=== PATIENT | male | born 1940 | race Caucasian/White ===

== ENCOUNTER 2023-06-24 14:57 | Inpatient (IN) | payer OTHER ==
[2023-06-24] MEDS ORDERED: FUROSEMIDE 40 MG/4 ML VIAL ONE (15:24)
--- OUTSIDE RECORDS SUMMARY | 2023-06-24 15:35 | XMS REPORT | Continuity of Care Document ---
:1940 Author Organization [facility] t Address [address] [place] [address] Care Team Providers Name Role Phone LEAH FRY Attending Clinician Unavailable Ced Galicia Attending Clinician Unavailable DIOR BUSCH Attending Clinician Unavailable James Attending Clinician Unavailable DIOR VALENTE Attending Clinician Unavailable Christina Attending Clinician Unavailable MARYCHUY HUTCHINS Attending Clinician Unavailable Gil Attending Clinician Unavailable IHDE_G Attending Clinician Unavailable Shield Attending Clinician Unavailable James Admitting Clinician Unavailable Christina Admitting Clinician Unavailable Gil Admitting Clinician Unavailable IHDE_G Admitting Clinician Unavailable Shield Admitting Clinician Unavailable Payers Payer Name Policy Type Policy Number Effective Date Expiration Date Sydney reza [facility] [id number] 2021 (MEDICARE 00:00:00 REPLACEMENT/ADVANTA GE - PPO) [employer] (MEDICARE [id number] REPLACEMENT/ADVANTA GE - PPO) Problems Condition Condition Condition Status Onset Resolution Last Treating Co mments Source Name Details Category Date Date Treatment Clinician Date Fever Fever Problem Active [facility] 7-31 da 00:00: Medical 00 Group COVID-19 Covid-19 Problem Active [facility] 7-27 da 00:00: Medical 00 Group Pain in Pain in Problem Active [facility] limb Limb 2-20 da 00:00: Medical 00 Group Fatigue Fatigue Problem Active [facility] 2-20 da 00:00: Medical 00 Group Dyspnea on Dyspnea on Problem Active [facility] exertion Exertion 2-20 da 00:00: Medical 00 Group 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 00 Grou p Retinopath Retinopath Problem Active [facility] y due to y Due to 2-18 da diabetes Diabetes 00:00: Medica l mellitus Mellitus 00 Group Disorder Disorder Problem Active [facility] of of 2-18 da refraction Refraction 00:00: Me dical AND/OR AND/OR 00 Group accommodat Accommodat ion ion Hypothyroi Hypothyroi Problem Active [facility] dism dism 1-25 da 00:00: Medical 00 Group Iron Iron Problem Active [facility] deficiency Deficiency 1-25 da anemia Anemia 00:00: Medical 00 Group Benign Benign Problem Active [facility] hypertensi Hypertensi 7-19 da on on 00:00: Medical 00 Group Stented Stented Problem Active [facility] coronary Coronary 08-21 da artery Artery 00:00: Medical 00 Group 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 Medical zoster Zoster Group Diabetes Diabetes Problem Active [facility] mellitus Mellitus [facility] Group Type 2 Type 2 Problem Active [facility] diabetes Diabetes da mellitus Mellitus Medica l Group 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 Me dical due to Due to Group type 2 Type 2 diabetes Diabetes mellitus Mellitus Hyperchole Hyperchole Problem Active [facility] sterolemia sterolemia [facility] Group Mixed Mixed Problem Active [facility] hyperlipid Hyperlipid da emia emia Medical Group Hyperkalem Hyperkalem Problem Active [facility] ia ia [facility] Medical Group Obesity Obesity Problem Active [facility] Body mass Body Mass Problem Active [facility] index Index da - - Medical overweight Overweight Gr oup Anemia Anemia Problem Active [facility] Anxiety Anxiety Problem Active [facility] Age Age Problem Active [facility] related Related da macular Macular Medical degenerati Degenerati Gr oup on on Benign Benign Problem Active [facility] essential Essential da hypertensi Hypertensi Me dical on on Group Hypertensi Hypertensi Problem Active [facility] ve ve da disorder Disorder Medica l Group Cardiorena Cardiorena Problem Active [facility] l syndrome l Syndrome [facility] Myocardial Myocardial Problem Active [facility] infarction Infarction [facility] Group Coronary Coronary Problem Active [facility] atheroscle Atheroscle da rosis rosis Medical Group Coronary Coronary Problem Active [facility] arterioscl Arterioscl da erosis erosis Medical Group Aortic Aortic Problem Active [facility] valve Valve da stenosis Stenosis Medica l Group Atrial Atrial Problem Active [facility] fibrillati Fibrillati da on on Medical Group Bradycardi Bradycardi Problem Active [facility] a a [facility] Group Multiple Multiple Problem Active [facility] nodules of Nodules of da lung [facility] Chronic Chronic Problem Active [facility] kidney Kidney da disease Disease Medical stage 3 Stage 3 Group Chronic Chronic Problem Active [facility] kidney Kidney da disease Disease Medical Group 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 Knee Medical Group Knee pain Knee Pain Problem Active [facility] Edema of Edema of Problem Active [facility] lower Lower da extremity Extremity Medi charles Group Heart Heart Problem Active [facility] murmur Murmur da Medical Group Chest pain Chest Pain Problem Active [facility] Atypical Atypical Problem Active [facility] chest pain Chest Pain da Medical Group Lung mass Lung Mass Problem Active [facility] Proteinuri Proteinuri Problem Active [facility] a a [facility] Group Solitary Solitary Problem Active [facility] nodule of Nodule of da lung [facility] History of History of Problem Active [facility] tissue Tissue da graft Graft Medical aortic Aortic Group valve Valve replacemen Replacemen t t History of History of Problem Active [facility] aortic Aortic da valve Valve Medical replacemen Replacemen Gr oup t t Screening Screening Problem Active [facility] status Status da Medical Group Drug Drug Problem Active [facility] therapy Therapy da status Status Medical Group Coronary Coronary Problem Active [facility] artery Artery da bypass Bypass Medical grafts x 3 Grafts X 3 Gr oup Drug Drug Problem Active [facility] therapy Therapy da finding Finding [facility] Group Eyelid Eyelid Problem Active [facility] finding Finding [facility] Medical Group Overweight Overweight Problem Active [facility] in in da adulthood Adulthood [facility] with body with Body Grou p mass index Mass Index of 25 or of 25 or more but More but less than Less than 30 30 Chronic Chronic Problem Active [facility] kidney Kidney da disease Disease Medical stage 3 Stage 3 Group due to Due to type 2 Type 2 diabetes Diabetes mellitus Mellitus Tightness Tightness Problem Active [facility] sensation Sensation da quality [facility] Allergies, Adverse Reactions, Alerts Allergy Allergy Status Severity Reaction(s) Onset Inactive Treating Comm ents Source Name Type Date Date Clinician acetamin DA Active [facility] RASH 2020-0 [facility] ophen 3-11 Clear 00:00: Gonzalez [facility] phenylpr DA Active MO RASH 0 [facility] opanolam 3-11 Clear ine 00:00: Gonzalez [facility] acetamin DA Active MO 0 [facility] ophen 3-11 Clear 00:00: Gonzalez [facility] phenylpr DA Active MO 0 [facility] opanolam 3-11 Clear ine 00:00: Gonzalez [facility] acetamin DA Active MO 0 [facility] ophen 3-08 Clear 00:00: Gonzalez [facility] phenylpr DA Active MO 0 [facility] opanolam 3-08 Clear ine 00:00: Gonzalez [facility] acetamin DA Active MO RASH 2020-0 [facility] ophen 3-08 Clear 00:00: Gonzalez 00 [facility] phenylpr DA Active MO RASH 0 [facility] opanolam 3-08 Clear ine 00:00: Gonzalez 00 [facility] ADHESIVE Allergy Active Moderate Rash [facility] TAPE to da [facility] Medical e Group TETRACYC Allergy Active Moderate Rash [facility] LINES to da [facility] Medical e Group Social History Smoking Status Start Date Stop Date Source Never Smoker [facility] Medications Ordered Filled Start Stop Current Ordering Indication Dosage Frequency Signature Comments Components Source Medication Medication Date Date Medication? Clinician (SIG) Name Name albuterol albuterol No albuterol [facility] sulfate 2.5 sulfate 2.5 sulfate da mg/3 mL mg/3 mL 2.5 mg/3 Medic al (0.083 %) (0.083 %) mL (0.083 Group solution solution %) for for solution nebulizatio nebulizatio for n Inhale 3 n Inhale 3 nebulizati mL every mL every on Inhale day by day by 3 mL every nebulizatio nebulizatio day by n route. n route. nebulizati on route. albuterol albuterol No albuterol [facility] sulfate HFA sulfate HFA sulfate da 90 90 HFA 90 Medical mcg/actuati mcg/actuati mcg/actuat Group on aerosol on aerosol ion inhaler inhaler aerosol INHALE 2 INHALE 2 inhaler PUFFS EVERY PUFFS EVERY INHALE 2 4-6 HOURS 4-6 HOURS PUFFS BY BY EVERY 4-6 INHALATION INHALATION HOURS BY ROUTE ROUTE INHALATION NEEDED. NEEDED. ROUTE NEEDED. amlodipine amlodipine No amlodipine [facility] 5 mg tablet 5 mg tablet 5 mg d a TAKE ONE TAKE ONE tablet Medic al (1) (1) TAKE ONE Group TABLET(S) TABLET(S) (1) BY MOUTH BY MOUTH TABLET(S) DAILY. DAILY. BY MOUTH DAILY. aspirin 81 aspirin 81 No 1 Q1D aspirin 81 [facility] mg chewable mg chewable mg d a tablet Chew tablet Chew chewable Medical 1 tablet 1 tablet tablet Group every day every day Chew 1 by oral by oral tablet route. route. every day by oral route. atorvastati atorvastati No atorvastat [facility] n 80 mg n 80 mg in 80 mg da tablet TAKE tablet TAKE tablet Medical ONE TABLET ONE TABLET TAKE ONE Group BY MOUTH BY MOUTH TABLET BY BEDTIME BEDTIME MOUTH BEDTIME clopidogrel clopidogrel No clopidogre [facility] 75 mg 75 mg l 75 mg da tablet TAKE tablet TAKE tablet Medical ONE (1) ONE (1) TAKE ONE Group TABLET(S) TABLET(S) (1) BY MOUTH BY MOUTH TABLET(S) DAILY. DAILY. BY MOUTH DAILY. colesevelam colesevelam No colesevela [facility] 625 mg 625 mg m 625 mg da tablet TAKE tablet TAKE tablet Medical 2 TABLETS 2 TABLETS TAKE 2 Zandra up BY MOUTH BY MOUTH TABLETS BY TWICE DAILY TWICE DAILY MOUTH TWICE DAILY Eylea Eylea No Eylea [facility] ferrous ferrous No ferrous [facility] sulfate sulfate sulfate da Medical Group furosemide furosemide No furosemide [facility] 20 mg 20 mg 20 mg da tablet TAKE tablet TAKE tablet Medical ONE (1) ONE (1) TAKE ONE Group TABLET(S) TABLET(S) (1) BY MOUTH BY MOUTH TABLET(S) DAILY. DAILY. BY MOUTH DAILY. glimepiride glimepiride No glimepirid [facility] 1 mg tablet 1 mg tablet e 1 mg da Take 1 Take 1 tablet Medical tablet tablet Take 1 Group every day every day tablet by oral by oral every day route as route as by oral directed. directed. route as directed. Lagevrio Lagevrio No Lagevrio [facility] 200 mg 200 mg 200 mg da capsule capsule capsule Medica l (EUA) TAKE (EUA) TAKE (EUA) TAKE Group 4 CAPSULES 4 CAPSULES 4 CAPSULES EVERY 12 EVERY 12 EVERY 12 HOURS BY HOURS BY HOURS BY ORAL ROUTE ORAL ROUTE ORAL ROUTE FOR 5 DAYS. FOR 5 DAYS. FOR 5 DAYS. levothyroxi levothyroxi No levothyrox [facility] ne 112 mcg ne 112 mcg ine 112 da tablet TAKE tablet TAKE mcg tablet Medical 1 TABLET BY 1 TABLET BY TAKE 1 Group MOUTH EVERY MOUTH EVERY TABLET BY DAY DAY MOUTH EVERY DAY prednisone prednisone No prednisone [facility] 10 mg 10 mg 10 mg da tablet Take tablet Take tablet Medical 1 tablet 1 tablet Take 1 Group every day every day tablet by oral by oral every day route for 5 route for 5 by oral days. days. route for 5 days. Se-Bloom Plus Se-Bloom Plus No Se-Bloom [facility] 162 162 Plus 162 da mg-115.2 mg mg-115.2 mg mg-115.2 Medical (106 mg)-1 (106 mg)-1 mg (106 Group mg capsule mg capsule mg)-1 mg TAKE 1 TAKE 1 capsule CAPSULE BY CAPSULE BY TAKE 1 MOUTH EVERY MOUTH EVERY CAPSULE BY DAY DAY MOUTH EVERY DAY Symbicort Symbicort No Symbicort [facility] 160 mcg-4.5 160 mcg-4.5 160 d a mcg/actuati mcg/actuati mcg-4.5 Medical on HFA on HFA mcg/actuat Group aerosol aerosol ion HFA inhaler inhaler aerosol INHALE 2 INHALE 2 inhaler PUFFS TWICE PUFFS TWICE INHALE 2 A DAY BY A DAY BY PUFFS INHALATION INHALATION TWICE A ROUTE FOR ROUTE FOR DAY BY 30 DAYS. 30 DAYS. INHALATION ROUTE FOR 30 DAYS. tramadol 50 tramadol 50 No tramadol [facility] mg tablet mg tablet 50 mg da TAKE ONE TAKE ONE tablet Medic al (1) (1) TAKE ONE Group TABLET(S) TABLET(S) (1) BY MOUTH BY MOUTH TABLET(S) TWICE A DAY TWICE A DAY BY MOUTH NEEDED. NEEDED. TWICE A DAY NEEDED. albuterol albuterol No albuterol [facility] sulfate 2.5 sulfate 2.5 sulfate da mg/3 mL mg/3 mL 2.5 mg/3 Medic al (0.083 %) (0.083 %) mL (0.083 Group solution solution %) for for solution nebulizatio nebulizatio for n Inhale 3 n Inhale 3 nebulizati mL every mL every on Inhale day by day by 3 mL every nebulizatio nebulizatio day by n route. n route. nebulizati on route. albuterol albuterol No albuterol [facility] sulfate HFA sulfate HFA sulfate da 90 90 HFA 90 Medical mcg/actuati mcg/actuati mcg/actuat Group on aerosol on aerosol ion inhaler inhaler aerosol INHALE 2 INHALE 2 inhaler PUFFS EVERY PUFFS EVERY INHALE 2 4-6 HOURS 4-6 HOURS PUFFS BY BY EVERY 4-6 INHALATION INHALATION HOURS BY ROUTE ROUTE INHALATION NEEDED. NEEDED. ROUTE NEEDED. amlodipine amlodipine No amlodipine [facility] 5 mg tablet 5 mg tablet 5 mg d a TAKE ONE TAKE ONE tablet Medic al (1) (1) TAKE ONE Group TABLET(S) TABLET(S) (1) BY MOUTH BY MOUTH TABLET(S) DAILY. DAILY. BY MOUTH DAILY. aspirin 81 aspirin 81 No 1 Q1D aspirin 81 [facility] mg chewable mg chewable mg d a tablet Chew tablet Chew chewable Medical 1 tablet 1 tablet tablet Group every day every day Chew 1 by oral by oral tablet route. route. every day by oral route. atorvastati atorvastati No atorvastat [facility] n 80 mg n 80 mg in 80 mg da tablet TAKE tablet TAKE tablet Medical ONE TABLET ONE TABLET TAKE ONE Group BY MOUTH BY MOUTH TABLET BY BEDTIME BEDTIME MOUTH BEDTIME clopidogrel clopidogrel No clopidogre [facility] 75 mg 75 mg l 75 mg da tablet TAKE tablet TAKE tablet Medical ONE (1) ONE (1) TAKE ONE Group TABLET(S) TABLET(S) (1) BY MOUTH BY MOUTH TABLET(S) DAILY. DAILY. BY MOUTH DAILY. colesevelam colesevelam No colesevela [facility] 625 mg 625 mg m 625 mg da tablet TAKE tablet TAKE tablet Medical TWO (2) TWO (2) TAKE TWO Group TABLETS BY TABLETS BY (2) MOUTH TWICE MOUTH TWICE TABLETS BY DAILY. DAILY. MOUTH TWICE DAILY. Eylea Eylea No Eylea [facility] ferrous ferrous No ferrous [facility] sulfate sulfate sulfate da Medical Group furosemide furosemide No furosemide [facility] 20 mg 20 mg 20 mg da tablet TAKE tablet TAKE tablet Medical ONE (1) ONE (1) TAKE ONE Group TABLET(S) TABLET(S) (1) BY MOUTH BY MOUTH TABLET(S) DAILY. DAILY. BY MOUTH DAILY. glimepiride glimepiride No glimepirid [facility] 1 mg tablet 1 mg tablet e 1 mg da Take 1 Take 1 tablet Medical tablet tablet Take 1 Group every day every day tablet by oral by oral every day route as route as by oral directed. directed. route as directed. Lagevrio Lagevrio No Lagevrio [facility] 200 mg 200 mg 200 mg da capsule capsule capsule Medica l (EUA) TAKE (EUA) TAKE (EUA) TAKE Group 4 CAPSULES 4 CAPSULES 4 CAPSULES EVERY 12 EVERY 12 EVERY 12 HOURS BY HOURS BY HOURS BY ORAL ROUTE ORAL ROUTE ORAL ROUTE FOR 5 DAYS. FOR 5 DAYS. FOR 5 DAYS. levothyroxi levothyroxi No levothyrox [facility] ne 112 mcg ne 112 mcg ine 112 da tablet TAKE tablet TAKE mcg tablet Medical 1 TABLET BY 1 TABLET BY TAKE 1 Group MOUTH EVERY MOUTH EVERY TABLET BY DAY DAY MOUTH EVERY DAY Se-Bloom Plus Se-Bloom Plus No Se-Bloom [facility] 162 162 Plus 162 da mg-115.2 mg mg-115.2 mg mg-115.2 Medical (106 mg)-1 (106 mg)-1 mg (106 Group mg capsule mg capsule mg)-1 mg TAKE 1 TAKE 1 capsule CAPSULE BY CAPSULE BY TAKE 1 MOUTH EVERY MOUTH EVERY CAPSULE BY DAY DAY MOUTH EVERY DAY Symbicort Symbicort No Symbicort [facility] 160 mcg-4.5 160 mcg-4.5 160 d a mcg/actuati mcg/actuati mcg-4.5 Medical on HFA on HFA mcg/actuat Group aerosol aerosol ion HFA inhaler inhaler aerosol INHALE 2 INHALE 2 inhaler PUFFS TWICE PUFFS TWICE INHALE 2 A DAY BY A DAY BY PUFFS INHALATION INHALATION TWICE A ROUTE FOR ROUTE FOR DAY BY 30 DAYS. 30 DAYS. INHALATION ROUTE FOR 30 DAYS. tramadol 50 tramadol 50 No tramadol [facility] mg tablet mg tablet 50 mg da TAKE ONE TAKE ONE tablet Medic al (1) (1) TAKE ONE Group TABLET(S) TABLET(S) (1) BY MOUTH BY MOUTH TABLET(S) TWICE A DAY TWICE A DAY BY MOUTH NEEDED. NEEDED. TWICE A DAY NEEDED. albuterol albuterol No albuterol [facility] sulfate 2.5 sulfate 2.5 sulfate da mg/3 mL mg/3 mL 2.5 mg/3 Medic al (0.083 %) (0.083 %) mL (0.083 Group solution solution %) for for solution nebulizatio nebulizatio for n Inhale 3 n Inhale 3 nebulizati mL every mL every on Inhale day by day by 3 mL every nebulizatio nebulizatio day by n route. n route. nebulizati on route. albuterol albuterol No albuterol [facility] sulfate HFA sulfate HFA sulfate da 90 90 HFA 90 Medical mcg/actuati mcg/actuati mcg/actuat Group on aerosol on aerosol ion inhaler inhaler aerosol INHALE 2 INHALE 2 inhaler PUFFS EVERY PUFFS EVERY INHALE 2 4-6 HOURS 4-6 HOURS PUFFS BY BY EVERY 4-6 INHALATION INHALATION HOURS BY ROUTE ROUTE INHALATION NEEDED. NEEDED. ROUTE NEEDED. amlodipine amlodipine No amlodipine [facility] 5 mg tablet 5 mg tablet 5 mg d a TAKE ONE TAKE ONE tablet Medic al (1) (1) TAKE ONE Group TABLET(S) TABLET(S) (1) BY MOUTH BY MOUTH TABLET(S) DAILY. DAILY. BY MOUTH DAILY. aspirin 81 aspirin 81 No 1 Q1D aspirin 81 [facility] mg chewable mg chewable mg d a tablet Chew tablet Chew chewable Medical 1 tablet 1 tablet tablet Group every day every day Chew 1 by oral by oral tablet route. route. every day by oral route. atorvastati atorvastati No atorvastat [facility] n 80 mg n 80 mg in 80 mg da tablet TAKE tablet TAKE tablet Medical ONE TABLET ONE TABLET TAKE ONE Group BY MOUTH AT BY MOUTH AT TABLET BY BEDTIME. BEDTIME. MOUTH AT BEDTIME. clopidogrel clopidogrel No clopidogre [facility] 75 mg 75 mg l 75 mg da tablet TAKE tablet TAKE tablet Medical ONE (1) ONE (1) TAKE ONE Group TABLET(S) TABLET(S) (1) BY MOUTH BY MOUTH TABLET(S) DAILY. DAILY. BY MOUTH DAILY. colesevelam colesevelam No colesevela [facility] 625 mg 625 mg m 625 mg da tablet TAKE tablet TAKE tablet Medical TWO (2) TWO (2) TAKE TWO Group TABLETS BY TABLETS BY (2) MOUTH TWICE MOUTH TWICE TABLETS BY DAILY. DAILY. MOUTH TWICE DAILY. Eylea Eylea No Eylea [facility] ferrous ferrous No ferrous [facility] sulfate sulfate sulfate da Medical Group furosemide furosemide No furosemide [facility] 20 mg 20 mg 20 mg da tablet TAKE tablet TAKE tablet Medical ONE (1) ONE (1) TAKE ONE Group TABLET(S) TABLET(S) (1) BY MOUTH BY MOUTH TABLET(S) DAILY. DAILY. BY MOUTH DAILY. glimepiride glimepiride No glimepirid [facility] 1 mg tablet 1 mg tablet e 1 mg da Take 1 Take 1 tablet Medical tablet tablet Take 1 Group every day every day tablet by oral by oral every day route as route as by oral directed. directed. route as directed. levothyroxi levothyroxi No levothyrox [facility] ne 112 mcg ne 112 mcg ine 112 da tablet TAKE tablet TAKE mcg tablet Medical 1 TABLET BY 1 TABLET BY TAKE 1 Group MOUTH EVERY MOUTH EVERY TABLET BY DAY DAY MOUTH EVERY DAY Se-Bloom Plus Se-Bloom Plus No Se-Bloom [facility] 162 162 Plus 162 da mg-115.2 mg mg-115.2 mg mg-115.2 Medical (106 mg)-1 (106 mg)-1 mg (106 Group mg capsule mg capsule mg)-1 mg TAKE 1 TAKE 1 capsule CAPSULE BY CAPSULE BY TAKE 1 MOUTH EVERY MOUTH EVERY CAPSULE BY DAY DAY MOUTH EVERY DAY Symbicort Symbicort No Symbicort [facility] 160 mcg-4.5 160 mcg-4.5 160 d a mcg/actuati mcg/actuati mcg-4.5 Medical on HFA on HFA mcg/actuat Group aerosol aerosol ion HFA inhaler inhaler aerosol INHALE 2 INHALE 2 inhaler PUFFS TWICE PUFFS TWICE INHALE 2 A DAY BY A DAY BY PUFFS INHALATION INHALATION TWICE A ROUTE FOR ROUTE FOR DAY BY 30 DAYS. 30 DAYS. INHALATION ROUTE FOR 30 DAYS. tramadol 50 tramadol 50 No tramadol [facility] mg tablet mg tablet 50 mg da TAKE ONE TAKE ONE tablet Medic al (1) (1) TAKE ONE Group TABLET(S) TABLET(S) (1) BY MOUTH BY MOUTH TABLET(S) TWICE A DAY TWICE A DAY BY MOUTH NEEDED. NEEDED. TWICE A DAY NEEDED. albuterol albuterol No albuterol [facility] sulfate 2.5 sulfate 2.5 sulfate da mg/3 mL mg/3 mL 2.5 mg/3 Medic al (0.083 %) (0.083 %) mL (0.083 Group solution solution %) for for solution nebulizatio nebulizatio for n Inhale 3 n Inhale 3 nebulizati mL every mL every on Inhale day by day by 3 mL every nebulizatio nebulizatio day by n route. n route. nebulizati on route. albuterol albuterol No albuterol [facility] sulfate HFA sulfate HFA sulfate da 90 90 HFA 90 Medical mcg/actuati mcg/actuati mcg/actuat Group on aerosol on aerosol ion inhaler inhaler aerosol INHALE 2 INHALE 2 inhaler PUFFS EVERY PUFFS EVERY INHALE 2 4-6 HOURS 4-6 HOURS PUFFS BY BY EVERY 4-6 INHALATION INHALATION HOURS BY ROUTE ROUTE INHALATION NEEDED. NEEDED. ROUTE NEEDED. amlodipine amlodipine No amlodipine [facility] 2.5 mg 2.5 mg 2.5 mg da tablet TAKE tablet TAKE tablet Medical ONE (1) ONE (1) TAKE ONE Group TABLET(S) TABLET(S) (1) BY MOUTH BY MOUTH TABLET(S) DAILY. DAILY. BY MOUTH DAILY. aspirin 81 aspirin 81 No 1 Q1D aspirin 81 [facility] mg chewable mg chewable mg d a tablet Chew tablet Chew chewable Medical 1 tablet 1 tablet tablet Group every day every day Chew 1 by oral by oral tablet route. route. every day by oral route. atorvastati atorvastati No atorvastat [facility] n 80 mg n 80 mg in 80 mg da tablet TAKE tablet TAKE tablet Medical ONE TABLET ONE TABLET TAKE ONE Group BY MOUTH AT BY MOUTH AT TABLET BY BEDTIME. BEDTIME. MOUTH AT BEDTIME. clopidogrel clopidogrel No clopidogre [facility] 75 mg 75 mg l 75 mg da tablet TAKE tablet TAKE tablet Medical ONE (1) ONE (1) TAKE ONE Group TABLET(S) TABLET(S) (1) BY MOUTH BY MOUTH TABLET(S) DAILY. DAILY. BY MOUTH DAILY. Eylea Eylea No Eylea [facility] ferrous ferrous No ferrous [facility] sulfate sulfate sulfate da Medical Group furosemide furosemide No furosemide [facility] 20 mg 20 mg 20 mg da tablet TAKE tablet TAKE tablet Medical ONE (1) ONE (1) TAKE ONE Group TABLET(S) TABLET(S) (1) BY MOUTH BY MOUTH TABLET(S) DAILY. DAILY. BY MOUTH DAILY. glimepiride glimepiride No glimepirid [facility] 1 mg tablet 1 mg tablet e 1 mg da TAKE 1 TAKE 1 tablet Medical TABLET TABLET TAKE 1 Group EVERY DAY EVERY DAY TABLET BY ORAL BY ORAL EVERY DAY ROUTE. ROUTE. BY ORAL ROUTE. levothyroxi levothyroxi No levothyrox [facility] ne 112 mcg ne 112 mcg ine 112 da tablet TAKE tablet TAKE mcg tablet Medical 1 TABLET BY 1 TABLET BY TAKE 1 Group MOUTH EVERY MOUTH EVERY TABLET BY DAY DAY MOUTH EVERY DAY lisinopril lisinopril No lisinopril [facility] 10 mg 10 mg 10 mg da tablet TAKE tablet TAKE tablet Medical ONE (1) ONE (1) TAKE ONE Group TABLET(S) TABLET(S) (1) BY MOUTH BY MOUTH TABLET(S) DAILY. DAILY. BY MOUTH DAILY. Lokelma 5 Lokelma 5 No Lokelma 5 [facility] gram oral gram oral gram oral da powder powder powder Medical packet MIX packet MIX packet MIX Group FIVE (5) FIVE (5) FIVE (5) GRAMS GRAMS GRAMS DIRECTED DIRECTED DIRECTED AND DRINK AND DRINK AND DRINK BY MOUTH BY MOUTH BY MOUTH DAILY. DAILY. DAILY. Se-Bloom Plus Se-Bloom Plus No Se-Bloom [facility] 162 162 Plus 162 da mg-115.2 mg mg-115.2 mg mg-115.2 Medical (106 mg)-1 (106 mg)-1 mg (106 Group mg capsule mg capsule mg)-1 mg TAKE 1 TAKE 1 capsule CAPSULE BY CAPSULE BY TAKE 1 MOUTH EVERY MOUTH EVERY CAPSULE BY DAY DAY MOUTH EVERY DAY tramadol 50 tramadol 50 No tramadol [facility] mg tablet mg tablet 50 mg da TAKE ONE TAKE ONE tablet Medic al (1) (1) TAKE ONE Group TABLET(S) TABLET(S) (1) BY MOUTH BY MOUTH TABLET(S) TWICE A DAY TWICE A DAY BY MOUTH NEEDED. NEEDED. TWICE A DAY NEEDED. WelChol 625 WelChol 625 No WelChol [facility] mg tablet mg tablet 625 mg da TAKE 2 TAKE 2 tablet Medical TABLETS) BY TABLETS) BY TAKE 2 Group ORAL ROUTE ORAL ROUTE TABLETS) ONCE DAILY ONCE DAILY BY ORAL WITH A MEAL WITH A MEAL ROUTE ONCE AND LIQUID AND LIQUID DAILY WITH A MEAL AND LIQUID albuterol albuterol No albuterol [facility] sulfate 2.5 sulfate 2.5 sulfate da mg/3 mL mg/3 mL 2.5 mg/3 Medic al (0.083 %) (0.083 %) mL (0.083 Group solution solution %) for for solution nebulizatio nebulizatio for n Inhale 3 n Inhale 3 nebulizati mL every mL every on Inhale day by day by 3 mL every nebulizatio nebulizatio day by n route. n route. nebulizati on route. albuterol albuterol No albuterol [facility] sulfate HFA sulfate HFA sulfate da 90 90 HFA 90 Medical mcg/actuati mcg/actuati mcg/actuat Group on aerosol on aerosol ion inhaler inhaler aerosol INHALE 2 INHALE 2 inhaler PUFFS EVERY PUFFS EVERY INHALE 2 4-6 HOURS 4-6 HOURS PUFFS BY BY EVERY 4-6 INHALATION INHALATION HOURS BY ROUTE ROUTE INHALATION NEEDED. NEEDED. ROUTE NEEDED. amlodipine amlodipine No amlodipine [facility] 2.5 mg 2.5 mg 2.5 mg da tablet TAKE tablet TAKE tablet Medical ONE (1) ONE (1) TAKE ONE Group TABLET(S) TABLET(S) (1) BY MOUTH BY MOUTH TABLET(S) DAILY. DAILY. BY MOUTH DAILY. aspirin 81 aspirin 81 No 1 Q1D aspirin 81 [facility] mg chewable mg chewable mg d a tablet Chew tablet Chew chewable Medical 1 tablet 1 tablet tablet Group every day every day Chew 1 by oral by oral tablet route. route. every day by oral route. atorvastati atorvastati No atorvastat [facility] n 80 mg n 80 mg in 80 mg da tablet TAKE tablet TAKE tablet Medical ONE TABLET ONE TABLET TAKE ONE Group BY MOUTH AT BY MOUTH AT TABLET BY BEDTIME. BEDTIME. MOUTH AT BEDTIME. cephalexin cephalexin No 1capsul TID cephalexin [facility] 500 mg 500 mg e(s) 500 mg da capsule capsule capsule Medica l Take 1 Take 1 Take 1 Group capsule 3 capsule 3 capsule 3 times a day times a day times a by oral by oral day by route for 7 route for 7 oral route days. days. for 7 days. clopidogrel clopidogrel No clopidogre [facility] 75 mg 75 mg l 75 mg da tablet TAKE tablet TAKE tablet Medical ONE (1) ONE (1) TAKE ONE Group TABLET(S) TABLET(S) (1) BY MOUTH BY MOUTH TABLET(S) DAILY. DAILY. BY MOUTH DAILY. colesevelam colesevelam No colesevela [facility] 625 mg 625 mg m 625 mg da tablet TAKE tablet TAKE tablet Medical TWO (2) TWO (2) TAKE TWO Group TABLETS BY TABLETS BY (2) MOUTH TWICE MOUTH TWICE TABLETS BY DAILY. DAILY. MOUTH TWICE DAILY. Eylea Eylea No Eylea [facility] ferrous ferrous No ferrous [facility] sulfate sulfate sulfate [facility] furosemide furosemide No furosemide [facility] 20 mg 20 mg 20 mg da tablet TAKE tablet TAKE tablet Medical ONE (1) ONE (1) TAKE ONE Group TABLET(S) TABLET(S) (1) BY MOUTH BY MOUTH TABLET(S) DAILY. DAILY. BY MOUTH DAILY. glimepiride glimepiride No glimepirid [facility] 1 mg tablet 1 mg tablet e 1 mg da TAKE 1 TAKE 1 tablet Medical TABLET TABLET TAKE 1 Group EVERY DAY EVERY DAY TABLET BY ORAL BY ORAL EVERY DAY ROUTE. ROUTE. BY ORAL ROUTE. levothyroxi levothyroxi No levothyrox [facility] ne 112 mcg ne 112 mcg ine 112 da tablet TAKE tablet TAKE mcg tablet Medical 1 TABLET BY 1 TABLET BY TAKE 1 Group MOUTH EVERY MOUTH EVERY TABLET BY DAY DAY MOUTH EVERY DAY lisinopril lisinopril No lisinopril [facility] 10 mg 10 mg 10 mg da tablet TAKE tablet TAKE tablet Medical ONE (1) ONE (1) TAKE ONE Group TABLET(S) TABLET(S) (1) BY MOUTH BY MOUTH TABLET(S) DAILY. DAILY. BY MOUTH DAILY. Lokelma 5 Lokelma 5 No Lokelma 5 [facility] gram oral gram oral gram oral da powder powder powder Medical packet MIX packet MIX packet MIX Group FIVE (5) FIVE (5) FIVE (5) GRAMS GRAMS GRAMS DIRECTED DIRECTED DIRECTED AND DRINK AND DRINK AND DRINK BY MOUTH BY MOUTH BY MOUTH DAILY. DAILY. DAILY. mupirocin 2 mupirocin 2 No mupirocin [facility] % topical % topical 2 % da ointment ointment topical Medi charles APPLY A APPLY A ointment Group SMALL SMALL APPLY A AMOUNT TO AMOUNT TO SMALL THE THE AMOUNT TO AFFECTED AFFECTED THE AREA BY AREA BY AFFECTED TOPICAL TOPICAL AREA BY ROUTE 3 ROUTE 3 TOPICAL TIMES PER TIMES PER ROUTE 3 DAY DAY TIMES PER DAY Se-Bloom Plus Se-Bloom Plus No Se-Bloom [facility] 162 162 Plus 162 da mg-115.2 mg mg-115.2 mg mg-115.2 Medical (106 mg)-1 (106 mg)-1 mg (106 Group mg capsule mg capsule mg)-1 mg TAKE 1 TAKE 1 capsule CAPSULE BY CAPSULE BY TAKE 1 MOUTH EVERY MOUTH EVERY CAPSULE BY DAY DAY MOUTH EVERY DAY tramadol 50 tramadol 50 No tramadol [facility] mg tablet mg tablet 50 mg da TAKE ONE TAKE ONE tablet Medic al (1) (1) TAKE ONE Group TABLET(S) TABLET(S) (1) BY MOUTH BY MOUTH TABLET(S) TWICE A DAY TWICE A DAY BY MOUTH NEEDED. NEEDED. TWICE A DAY NEEDED. albuterol albuterol No albuterol [facility] sulfate 2.5 sulfate 2.5 sulfate da mg/3 mL mg/3 mL 2.5 mg/3 Medic al (0.083 %) (0.083 %) mL (0.083 Group solution solution %) for for solution nebulizatio nebulizatio for n Inhale 3 n Inhale 3 nebulizati mL every mL every on Inhale day by day by 3 mL every nebulizatio nebulizatio day by n route. n route. nebulizati on route. albuterol albuterol No albuterol [facility] sulfate HFA sulfate HFA sulfate da 90 90 HFA 90 Medical mcg/actuati mcg/actuati mcg/actuat Group on aerosol on aerosol ion inhaler inhaler aerosol INHALE 2 INHALE 2 inhaler PUFFS EVERY PUFFS EVERY INHALE 2 4-6 HOURS 4-6 HOURS PUFFS BY BY EVERY 4-6 INHALATION INHALATION HOURS BY ROUTE ROUTE INHALATION NEEDED. NEEDED. ROUTE NEEDED. amlodipine amlodipine No amlodipine [facility] 5 mg tablet 5 mg tablet 5 mg d a TAKE 1 TAKE 1 tablet Medical TABLET BY TABLET BY TAKE 1 Zandra up ORAL ROUTE ORAL ROUTE TABLET BY EVERY DAY EVERY DAY ORAL ROUTE EVERY DAY aspirin 81 aspirin 81 No 1 Q1D aspirin 81 [facility] mg chewable mg chewable mg d a tablet Chew tablet Chew chewable Medical 1 tablet 1 tablet tablet Group every day every day Chew 1 by oral by oral tablet route. route. every day by oral route. atorvastati atorvastati No atorvastat [facility] n 80 mg n 80 mg in 80 mg da tablet TAKE tablet TAKE tablet Medical ONE TABLET ONE TABLET TAKE ONE Group BY MOUTH AT BY MOUTH AT TABLET BY BEDTIME. BEDTIME. MOUTH AT BEDTIME. clopidogrel clopidogrel No clopidogre [facility] 75 mg 75 mg l 75 mg da tablet TAKE tablet TAKE tablet Medical ONE (1) ONE (1) TAKE ONE Group TABLET(S) TABLET(S) (1) BY MOUTH BY MOUTH TABLET(S) DAILY. DAILY. BY MOUTH DAILY. colesevelam colesevelam No colesevela [facility] 625 mg 625 mg m 625 mg da tablet TAKE tablet TAKE tablet Medical TWO (2) TWO (2) TAKE TWO Group TABLETS BY TABLETS BY (2) MOUTH TWICE MOUTH TWICE TABLETS BY DAILY. DAILY. MOUTH TWICE DAILY. Eylea Eylea No Eylea [facility] ferrous ferrous No ferrous [facility] sulfate sulfate sulfate [facility] furosemide furosemide No furosemide [facility] 20 mg 20 mg 20 mg da tablet TAKE tablet TAKE tablet Medical ONE (1) ONE (1) TAKE ONE Group TABLET(S) TABLET(S) (1) BY MOUTH BY MOUTH TABLET(S) DAILY. DAILY. BY MOUTH DAILY. furosemide furosemide No 1 Q1D furosemide [facility] 40 mg 40 mg 40 mg da tablet Take tablet Take tablet Medical 1 tablet 1 tablet Take 1 Group every day every day tablet by oral by oral every day route for route for by oral 90 days. 90 days. route for 90 days. glimepiride glimepiride No glimepirid [facility] 1 mg tablet 1 mg tablet e 1 mg da TAKE 1 TAKE 1 tablet Medical TABLET TABLET TAKE 1 Group EVERY DAY EVERY DAY TABLET BY ORAL BY ORAL EVERY DAY ROUTE. ROUTE. BY ORAL ROUTE. levothyroxi levothyroxi No levothyrox [facility] ne 112 mcg ne 112 mcg ine 112 da tablet TAKE tablet TAKE mcg tablet Medical ONE (1) ONE (1) TAKE ONE Group TABLET BY TABLET BY (1) TABLET MOUTH EVERY MOUTH EVERY BY MOUTH DAY. DAY. EVERY DAY. lisinopril lisinopril No lisinopril [facility] 10 mg 10 mg 10 mg da tablet TAKE tablet TAKE tablet Medical ONE (1) ONE (1) TAKE ONE Group TABLET BY TABLET BY (1) TABLET ORAL ROUTE ORAL ROUTE BY ORAL EVERY DAY. EVERY DAY. ROUTE EVERY DAY. Lokelma 5 Lokelma 5 No Lokelma 5 [facility] gram oral gram oral gram oral da powder powder powder Medical packet MIX packet MIX packet MIX Group FIVE (5) FIVE (5) FIVE (5) GRAMS GRAMS GRAMS DIRECTED DIRECTED DIRECTED AND DRINK AND DRINK AND DRINK BY MOUTH BY MOUTH BY MOUTH DAILY. DAILY. DAILY. mupirocin 2 mupirocin 2 No mupirocin [facility] % topical % topical 2 % da ointment ointment topical Medi charles APPLY A APPLY A ointment Group SMALL SMALL APPLY A AMOUNT TO AMOUNT TO SMALL THE THE AMOUNT TO AFFECTED AFFECTED THE AREA BY AREA BY AFFECTED TOPICAL TOPICAL AREA BY ROUTE 3 ROUTE 3 TOPICAL TIMES PER TIMES PER ROUTE 3 DAY DAY TIMES PER DAY nitroglycer nitroglycer No nitroglyce [facility] in 0.4 mg in 0.4 mg rin 0.4 mg da sublingual sublingual sublingual Medical tablet tablet tablet Group PLACE [address] 1 TABLET BY TABLET BY TABLET BY SUBLINGUAL SUBLINGUAL SUBLINGUAL ROUTE ONCE ROUTE ONCE ROUTE ONCE FOR CHEST FOR CHEST FOR CHEST PAIN, MAY PAIN, MAY PAIN, MAY REPEAT REPEAT REPEAT EVERY 5 EVERY 5 EVERY 5 MINUTES. IF MINUTES. IF MINUTES. PAIN PAIN IF PAIN CONTINUES CONTINUES CONTINUES AFTER 3 AFTER 3 AFTER 3 TABLETS, TABLETS, TABLETS, SEEK HELP. SEEK HELP. SEEK HELP. Se-Bloom Plus Se-Bloom Plus No Se-Bloom [facility] 162 162 Plus 162 da mg-115.2 mg mg-115.2 mg mg-115.2 Medical (106 mg)-1 (106 mg)-1 mg (106 Group mg capsule mg capsule mg)-1 mg TAKE 1 TAKE 1 capsule CAPSULE BY CAPSULE BY TAKE 1 MOUTH EVERY MOUTH EVERY CAPSULE BY DAY DAY MOUTH EVERY DAY tramadol 50 tramadol 50 No tramadol [facility] mg tablet mg tablet 50 mg da TAKE 1 TAKE 1 tablet Medical TABLET(S) TABLET(S) TAKE 1 Zandra up TWICE PER TWICE PER TABLET(S) DAY BY ORAL DAY BY ORAL TWICE PER ROUTE ROUTE DAY BY NEEDED. NEEDED. ORAL ROUTE NEEDED. Immunizations Ordered Immunization Filled Immunization Date Status Commen ts Source Name Name Influenza vaccine, Influenza vaccine, 2022-10-02 Completed [facility] quadrivalent, quadrivalent, 00:00:00 Medical Group adjuvanted - ML adjuvanted - ML Influenza vaccine, Influenza vaccine, 2022-10-02 Completed [facility] quadrivalent, quadrivalent, 00:00:00 Medical Group adjuvanted - ML adjuvanted - ML Influenza vaccine, Influenza vaccine, 2022-10-02 Completed [facility] quadrivalent, quadrivalent, 00:00:00 Medical Group adjuvanted - ML adjuvanted - ML COVID-19, mRNA, COVID-19, mRNA, 2021-09-23 Completed [facility] franc[facility] LNP-S, PF, 100 LNP-S, PF, 100 00:00:00 Medica l Group mcg/0.5 mL dose mcg/0.5 mL dose (Moderna) - ML (Moderna) - ML COVID-19, mRNA, COVID-19, mRNA, 2021-09-23 Completed [facility] franc[facility] LNP-S, PF, 100 LNP-S, PF, 100 00:00:00 Medica l Group mcg/0.5 mL dose mcg/0.5 mL dose (Moderna) - ML (Moderna) - ML COVID-19, mRNA, COVID-19, mRNA, 2021-09-23 Completed [facility] franc[facility] LNP-S, PF, 100 LNP-S, PF, 100 00:00:00 Medica l Group mcg/0.5 mL dose mcg/0.5 mL dose (Moderna) - ML (Moderna) - ML COVID-19, mRNA, COVID-19, mRNA, 2021-01-01 Completed [facility] LNP-S, PF, 100 LNP-S, PF, 100 00:00:00 Medica l Group mcg/0.5 mL dose mcg/0.5 mL dose (Moderna) - ML (Moderna) - ML COVID-19 (SARS-COV-2) COVID-19 2021-01-01 Completed [facility] vaccine, unspecified (SARS-COV-2) 00:00:00 Me dical Group vaccine, unspecified COVID-19, mRNA, COVID-19, mRNA, 2021-01-01 Completed [facility] francis LNP-S, PF, 100 LNP-S, PF, 100 00:00:00 Medica l Group mcg/0.5 mL dose mcg/0.5 mL dose (Moderna) - ML (Moderna) - ML COVID-19 (SARS-COV-2) COVID-19 2021-01-01 Completed [facility] vaccine, unspecified (SARS-COV-2) 00:00:00 Me dical Group vaccine, unspecified COVID-19, mRNA, COVID-19, mRNA, 2021-01-01 Completed [facility] franc[facility] LNP-S, PF, 100 LNP-S, PF, 100 00:00:00 Medica l Group mcg/0.5 mL dose mcg/0.5 mL dose (Moderna) - ML (Moderna) - ML COVID-19 (SARS-COV-2) COVID-19 2021-01-01 Completed [facility] vaccine, unspecified (SARS-COV-2) 00:00:00 Me dical Group vaccine, unspecified COVID-19 (SARS-COV-2) COVID-19 2021-01-01 Completed [facility] vaccine, unspecified (SARS-COV-2) 00:00:00 Me dical Group vaccine, unspecified COVID-19 (SARS-COV-2) COVID-19 2021-01-01 Completed [facility] vaccine, unspecified (SARS-COV-2) 00:00:00 Me dical Group vaccine, unspecified COVID-19 (SARS-COV-2) COVID-19 2021-01-01 Completed [facility] vaccine, unspecified (SARS-COV-2) 00:00:00 Me dical Group vaccine, unspecified COVID-19 (SARS-COV-2) COVID-19 2020-12-04 Completed [facility] vaccine, unspecified (SARS-COV-2) 00:00:00 Me dical Group vaccine, unspecified COVID-19 (SARS-COV-2) COVID-19 2020-12-04 Completed [facility] vaccine, unspecified (SARS-COV-2) 00:00:00 Me dical Group vaccine, unspecified COVID-19 (SARS-COV-2) COVID-19 2020-12-04 Completed [facility] vaccine, unspecified (SARS-COV-2) 00:00:00 Me dical Group vaccine, unspecified COVID-19, mRNA, COVID-19, mRNA, 2020-12-04 Completed [facility] francis LNP-S, PF, 100 LNP-S, PF, 100 00:00:00 Medica l Group mcg/0.5 mL dose mcg/0.5 mL dose (Moderna) - ML (Moderna) - ML COVID-19 (SARS-COV-2) COVID-19 2020-12-04 Completed [facility] vaccine, unspecified (SARS-COV-2) 00:00:00 Me dical Group vaccine, unspecified COVID-19, mRNA, COVID-19, mRNA, 2020-12-04 Completed [facility] francis LNP-S, PF, 100 LNP-S, PF, 100 00:00:00 Medica l Group mcg/0.5 mL dose mcg/0.5 mL dose (Moderna) - ML (Moderna) - ML COVID-19 (SARS-COV-2) COVID-19 2020-12-04 Completed [facility] vaccine, unspecified (SARS-COV-2) 00:00:00 Me dical Group vaccine, unspecified COVID-19, mRNA, COVID-19, mRNA, 2020-12-04 Completed Steve francis LNP-S, PF, 100 LNP-S, PF, 100 00:00:00 Medica l Group mcg/0.5 mL dose mcg/0.5 mL dose (Moderna) - ML (Moderna) - ML COVID-19 (SARS-COV-2) COVID-19 2020-12-04 Completed [facility] vaccine, unspecified (SARS-COV-2) 00:00:00 Me dical Group vaccine, unspecified influenza, trivalent, influenza, 2020-09-04 Completed [facility] adjuvanted trivalent, 16:35:21 Medical Group adjuvanted influenza, trivalent, influenza, 2020-09-04 Completed [facility] adjuvanted trivalent, 16:35:21 Medical Group adjuvanted influenza, trivalent, influenza, 2020-09-04 Completed [facility] adjuvanted trivalent, 16:35:21 Medical Group adjuvanted influenza, trivalent, influenza, 2020-09-04 Completed [facility] adjuvanted - ML trivalent, 00:00:00 Medical G roup adjuvanted - ML influenza, trivalent, influenza, 2020-09-04 Completed [facility] adjuvanted - ML trivalent, 00:00:00 Medical G roup adjuvanted - ML influenza, trivalent, influenza, 2020-09-04 Completed [facility] adjuvanted - ML trivalent, 00:00:00 Medical G roup adjuvanted - ML pneumococcal pneumococcal 2011-11-23 Completed [facility] polysaccharide PPV23 polysaccharide PPV23 00:00:00 Medical Group pneumococcal pneumococcal 2011-11-23 Completed [facility] polysaccharide PPV23 polysaccharide PPV23 00:00:00 Medical Group pneumococcal pneumococcal 2011-11-23 Completed [facility] polysaccharide PPV23 polysaccharide PPV23 00:00:00 Medical Group pneumococcal pneumococcal 2011-11-23 Completed [facility] polysaccharide PPV23 polysaccharide PPV23 00:00:00 Medical Group pneumococcal pneumococcal 2011-11-23 Completed [facility] polysaccharide PPV23 polysaccharide PPV23 00:00:00 Medical Group pneumococcal pneumococcal 2011-11-23 Completed [facility] polysaccharide PPV23 polysaccharide PPV23 00:00:00 Medical Group pneumococcal pneumococcal 2009-11-23 Completed [facility] conjugate PCV 13 conjugate PCV 13 00:00:00 Me dical Group pneumococcal pneumococcal 2009-11-23 Completed [facility] conjugate PCV 13 conjugate PCV 13 00:00:00 Me dical Group pneumococcal pneumococcal 2009-11-23 Completed [facility] conjugate PCV 13 conjugate PCV 13 00:00:00 Me dical Group pneumococcal pneumococcal 2009-11-23 Completed [facility] conjugate PCV 13 conjugate PCV 13 00:00:00 Me dical Group pneumococcal pneumococcal 2009-11-23 Completed [facility] conjugate PCV 13 conjugate PCV 13 00:00:00 Me dical Group pneumococcal pneumococcal 2009-11-23 Completed [facility] conjugate PCV 13 conjugate PCV 13 00:00:00 Me dical Group Vital Signs Vital Name Observation Time Observation Value Comments Source BP Diastolic 2023-06-18 00:00:00 75 mm[Hg] [facility] Height 2023-06-18 00:00:00 [facility] BMI (Body Mass 2023-06-18 00:00:00 27.9 kg/m2 [facility] Medical Index) Group BP Systolic 2023-06-18 00:00:00 123 [facility] Body Weight 2023-06-18 00:00:00 2932.8 [oz_av] [facility] BP Diastolic 2023-05-11 00:00:00 73 mm[Hg] [facility] Height 2023-05-11 00:00:00 68 [facility]_i[facility] BMI (Body Mass 2023-05-11 00:00:00 25.5 kg/m2 [facility] Medical Index) Group BP Systolic 2023-05-11 00:00:00 158 mm[Hg] [facility] Body Weight 2023-05-11 00:00:00 2688 [oz_av[facility] BP Diastolic 2023-02-09 00:00:00 75 mm[Hg] [facility] Height 2023-02-09 00:00:00 68 [in_i] [facility] BMI (Body Mass 2023-02-09 00:00:00 25.6 kg/m2 [facility] Medical Index) Group BP Systolic 2023-02-09 00:00:00 178 mm[Hg] [facility] Body Weight 2023-02-09 00:00:00 2692 [oz_av] [facility] BP Diastolic 2022-09-09 00:00:00 71 mm[Hg] [facility] Height 2022-09-09 00:00:00 68 [in_i] [facility] BMI (Body Mass 2022-09-09 00:00:00 24.6 kg/m2 [facility] Medical Index) Group BP Systolic 2022-09-09 00:00:00 151 mm[Hg] [facility] Body Weight 2022-09-09 00:00:00 161.7 [lb_av] [facility] BP Diastolic 2022-08-27 00:00:00 57 mm[Hg] [facility] Height 2022-08-27 00:00:00 68 [in_i] [facility] BMI (Body Mass 2022-08-27 00:00:00 24.9 kg/m2 [facility] Medical Index) Group BP Systolic 2022-08-27 00:00:00 146 mm[Hg] [facility] Body Weight 2022-08-27 00:00:00 2622.4 [oz_av] [facility] BP Diastolic 2022-07-30 00:00:00 81 mm[Hg] [facility] Height 2022-07-30 00:00:00 68 [in_i] [facility] BMI (Body Mass 2022-07-30 00:00:00 24[facility]5 [facility] BP Systolic 2022-07-30 00:00:00 160 mm[Hg] [facility] Body Weight 2022-07-30 00:00:00 2580.8 [oz_av] [facility] BP Diastolic 2022-07-16 00:00:00 61 mm[Hg] [facility] Height 2022-07-16 00:00:00 68 [in_i] [facility] BMI (Body Mass 2022-07-16 00:00:00 24.5 kg/m2 [facility] Medical Index) Group BP Systolic 2022-07-16 00:00:00 134 mm[Hg] [facility] Body Weight 2022-07-16 00:00:00 2577.6 [oz_av] [facility] BP Diastolic 2022-07-02 00:00:00 77 mm[Hg] [facility] Height 2022-07-02 00:00:00 68 [in_i] [facility] BMI (Body Mass 2022-07-02 00:00:00 25.2 kg/m2 [facility] Medical Index) Group BP Systolic 2022-07-02 00:00:00 160 mm[Hg] [facility] Body Weight 2022-07-02 00:00:00 2652.8 [oz_av] [facility] BP Diastolic 2022-06-25 00:00:00 79 mm[Hg] [facility] Height 2022-06-25 00:00:00 68 [in_i] [facility] BMI (Body Mass 2022-06-25 00:00:00 25.8 kg/m2 [facility] Medical Index) Group BP Systolic 2022-06-25 00:00:00 170 mm[Hg] [facility] Body Weight 2022-06-25 00:00:00 2720 [oz_av] [facility] BP Diastolic 2022-06-18 00:00:00 71 mm[Hg] [facility] Height 2022-06-18 00:00:00 68 [in_i] [facility] BMI (Body Mass 2022-06-18 00:00:00 25.1 kg/m2 [facility] BP Systolic 2022-06-18 00:00:00 171 mm[Hg] [facility] Body Weight 2022-06-18 00:00:00 2640 [oz_av] [facility] BP Diastolic 2022-06-04 00:00:00 80 mm[Hg] [facility] Height 2022-06-04 00:00:00 68 [in_i] [facility] BMI (Body Mass 2022-06-04 00:00:00 24 kg/m2 [facility] Medical Index) Group BP Systolic 2022-06-04 00:00:00 150 mm[Hg] [facility] Body Weight 2022-06-04 00:00:00 2530 [oz_av] [facility] BP Diastolic 2022-05-28 00:00:00 81 mm[Hg] [facility] Height 2022-05-28 00:00:00 68 [in_i] [facility] BMI (Body Mass 2022-05-28 00:00:00 25.1 kg/m2 [facility] Medical Index) Group BP Systolic 2022-05-28 00:00:00 136 mm[Hg] [facility] Body Weight 2022-05-28 00:00:00 165 [lb_av] [facility] BP Diastolic 2022-03-04 00:00:00 80 mm[Hg] [facility] Height 2022-03-04 00:00:00 68 [in_i] [facility] BMI (Body Mass 2022-03-04 00:00:00 24.6 kg/m2 [facility] Medical Index) Group BP Systolic 2022-03-04 00:00:00 134 mm[Hg] [facility] Body Weight 2022-03-04 00:00:00 161.5 [lb_av] [facility] BP Diastolic 2022-02-04 00:00:00 74 mm[Hg] [facility] Height 2022-02-04 00:00:00 68 [in_i] [facility] BMI (Body Mass 2022-02-04 00:00:00 24.4 kg/m2 [facility] Medical Index) Group BP Systolic 2022-02-04 00:00:00 137 mm[Hg] [facility] Body Weight 2022-02-04 00:00:00 2571.2 [oz_av] [facility] BP Diastolic 2021-12-12 00:00:00 73 mm[Hg] [facility] Height 2021-12-12 00:00:00 68 [in_i] [facility] BMI (Body Mass 2021-12-12 00:00:00 25 kg/m2 [facility] BP Systolic 2021-12-12 00:00:00 135 mm[Hg] [facility] Body Weight 2021-12-12 00:00:00 2630 [oz_av] [facility] BP Diastolic 2021-09-09 00:00:00 65 mm[Hg] [facility] Height 2021-09-09 00:00:00 68 [in_i] [facility] BMI (Body Mass 2021-09-09 00:00:00 24 kg/m2 [facility] Medical Index) Group BP Systolic 2021-09-09 00:00:00 148 mm[Hg] [facility] Body Weight 2021-09-09 00:00:00 2528 [oz_av] [facility] BP Diastolic 2021-09-03 00:00:00 68 mm[Hg] [facility] Height 2021-09-03 00:00:00 68 [in_i] [facility] BMI (Body Mass 2021-09-03 00:00:00 23.8 kg/m2 [facility] [employer] Medical Index) Group BP Systolic 2021-09-03 00:00:00 143 mm[Hg] [facility] Body Weight 2021-09-03 00:00:00 156.5 [lb_av] [facility] BP Diastolic 2021-07-18 00:00:00 70 mm[Hg] [facility] Height 2021-07-18 00:00:00 68 [in_i] [facility] BMI (Body Mass 2021-07-18 00:00:00 23.9 kg/m2 [facility] Medical Index) Group BP Systolic 2021-07-18 00:00:00 150 mm[Hg] [facility] Body Weight 2021-07-18 00:00:00 157.5 [lb_av] [facility] BP Systolic 2021-06-11 00:00:00 122 mm[Hg] [facility] Body Weight 2021-06-11 00:00:00 2497 [oz_av] [facility] BP Diastolic 2021-06-11 00:00:00 72 mm[Hg] [facility] Height 2021-06-11 00:00:00 68 [in_i] [facility] BMI (Body Mass 2021-06-11 00:00:00 23.7 kg/m2 [facility] Medical Index) Group BP Diastolic 2021-02-28 00:00:00 72 mm[Hg] [facility] Height 2021-02-28 00:00:00 68 [in_i] [facility] BMI (Body Mass 2021-02-28 00:00:00 26.2 kg/m2 [facility] Medical Index) Group BP Systolic 2021-02-28 00:00:00 130 mm[Hg] [facility] Body Weight 2021-02-28 00:00:00 172 [lb_av] [facility] BP Diastolic 2021-02-14 00:00:00 70 mm[Hg] [facility] Height 2021-02-14 00:00:00 68 [in_i] [facility] BMI (Body Mass 2021-02-14 00:00:00 26.2 kg/m2 [facility] [employer] Medical Index) Group BP Systolic 2021-02-14 00:00:00 138 mm[Hg] [facility] Body Weight 2021-02-14 00:00:00 172.5 [lb_av] [facility] BP Diastolic 2020-12-29 00:00:00 75 mm[Hg] [facility] Height 2020-12-29 00:00:00 68 [in_i] [facility] BMI (Body Mass 2020-12-29 00:00:00 25 kg/m2 [facility] [employer] Medical Index) Group BP Systolic 2020-12-29 00:00:00 142 mm[Hg] [facility] Body Weight 2020-12-29 00:00:00 2633 [oz_av] [facility] BP Diastolic 2020-12-11 00:00:00 64 mm[Hg] [facility] Height 2020-12-11 00:00:00 68 [in_i] [facility] BMI (Body Mass 2020-12-11 00:00:00 25.5 kg/m2 [facility] Medical Index) Group BP Systolic 2020-12-11 00:00:00 120 mm[Hg] [facility] Body Weight 2020-12-11 00:00:00 168 [lb_av] [facility] BP Diastolic 2020-12-10 00:00:00 62 mm[Hg] [facility] Height 2020-12-10 00:00:00 68 [in_i] [facility] BMI (Body Mass 2020-12-10 00:00:00 25.5 kg/m2 [facility] [employer] Medical Index) Group BP Systolic 2020-12-10 00:00:00 112 mm[Hg] [facility] Body Weight 2020-12-10 00:00:00 2688 [oz_av] [facility] BP Diastolic 2020-11-06 00:00:00 72 mm[Hg] [facility] Height 2020-11-06 00:00:00 68 [in_i] [facility] BMI (Body Mass 2020-11-06 00:00:00 27.9 kg/m2 [facility] [employer] Medical Index) Group BP Systolic 2020-11-06 00:00:00 128 mm[Hg] [facility] Body Weight 2020-11-06 00:00:00 183.7 [lb_av] [facility] [facility] BP Diastolic 2020-09-18 00:00:00 80 mm[Hg] [facility] Height 2020-09-18 00:00:00 68 [in_i] [facility] BMI (Body Mass 2020-09-18 00:00:00 28.5 kg/m2 [facility] BP Systolic 2020-09-18 00:00:00 132 mm[Hg] [facility] Body Weight 2020-09-18 00:00:00 187.5 [lb_av] [facility] BP Diastolic 2020-09-04 00:00:00 78 mm[Hg] [facility] Height 2020-09-04 00:00:00 68 [in_i] [facility] BMI (Body Mass 2020-09-04 00:00:00 27.2 kg/m2 [facility] Medical Index) Group BP Systolic 2020-09-04 00:00:00 133 mm[Hg] [facility] Body Weight 2020-09-04 00:00:00 2867 [oz_av] [facility] Procedures Procedure Date / Time Performing Clinician Source Performed US, echocardiogram 2023-06-18 00:00:00 [facility] US, abdomen, complete 2023-06-18 00:00:00 [facility] XR, abdomen 2023-06-18 00:00:00 [facility] dical Group ECG WITH INTERPRETATION 2023-06-18 00:00:00 [facility] 12 LEADS Group US, scrotum 2023-06-18 00:00:00 [facility] dical Group XR, chest, 2 view 2022-07-16 00:00:00 [facility] XR, chest, 2 view 2022-06-25 00:00:00 [facility] unlisted imaging order 2022-05-19 00:00:00 [facility] unlisted imaging order 2022-03-04 00:00:00 [facility], chest, 2 view 2021-09-03 00:00:00 [facility] unlisted imaging order 2021-07-18 00:00:00 [facility] [id number] 2021-01-30 00:00:00 ARIADNA Darden [facility] Inguinal Herniorrhaphy 2020-11-26 00:00:00 [facility] Plan of Care Planned Activity Planned Date Details Comments Source Diagnostic Test 2023-06-18 CMP, serum or plasma [facility] Medical Pending 00:00:00 [code = CMP, serum Group or plasma] Diagnostic Test 2023-06-18 BNP (B-type [facility] Pending 00:00:00 natriuretic Group peptide), serum or plasma [code = BNP (B-type natriuretic peptide), serum or plasma] Diagnostic Test 2023-06-18 PSA, total + free, [facility] [employer] Medical Pending 00:00:00 serum or plasma Group [code = PSA, total + free, serum or plasma] Diagnostic Test 2023-06-18 urinalysis, dipstick Steve francis Medical Pending 00:00:00 [code = urinalysis, Group dipstick] Diagnostic Test 2023-06-18 CBC w/ auto diff [facility] Pending 00:00:00 [code = CBC w/ auto Group diff] Diagnostic Test 2023-06-18 amylase + lipase, [facility] Pending 00:00:00 serum [code = Group amylase + lipase, serum] Future Appointment 2023-08-12 Mervin Virk, [address] [facility] 14:15:00 [facility]; Group [address], [place] [address] Instructions [facility] Encounters Start End Encounter Admission Attending Care Care Encounter Source Date/Time Date/Time Type Type Clinicians Facility Department ID 2023-06-25 Inpatient JOSE FOSTERAIDEEWAI [facility] [id number] [facility] 10:00:00 LEAH [id number] [facility] 2021-01-25 Inpatient Grayson, HCACL [facility] [id number] [facility] 17:02:30 Ced 06 [facility] 2023-06-24 2023-06-24 Outpatient JOSE BUSCH [facility] [id number] [facility] 11:46:00 11:46:00 DIOR [id number] [facility] 2023-06-19 2023-06-19 Outpatient ANISHA FRY [facility] [id number] [facility] 11:48:00 11:48:00 LEAH [id number] [facility] 2023-06-18 2023-06-18 Outpatient JOSE ANG [facility] [id number] [facility] 14:38:00 14:38:00 LEAH [id number] [facility] 2023-06-18 2023-06-18 Outpatient Koudela_A [facility] MMG [id number] -2022 [facility] 00:00:00 00:00:00 0727 [facility] 2023-06-18 2023-06-18 Outpatient Koudela_A MMG MMG [id number] -2022 [place] 00:00:00 00:00:00 0802 [facility] Group 2023-06-18 2023-06-18 Leah [place] - [id number] M at[facility]or 00:00:00 00:00:00 Discovery Ang da PA-C: 600 [facility] - [address] [place] [address] , Ph. 2023-06-01 2023-06-01 Outpatient JOSE VALENTE [facility] [id number] [place] 09:36:00 09:36:00 DIOR [id number] [facility] 2023-05-11 2023-05-11 Outpatient Koudela_A MMG MMG [id number] -2022 [place] 00:00:00 00:00:00 0619 [facility] 2023-05-11 2023-05-11 Outpatient Koudela_A MMG [facility] [id number] -[id number] [place] 00:00:00 00:00:00 0622 [facility] 2023-05-11 2023-05-11 Leah [facility] [place] - [id number] M at[facility]or 00:00:00 00:00:00 Discovery karina Fry PA-C: [address] [facility] [address] [place] [address] , Ph. 2023-02-11 2023-02-11 Outpatient JOSE VALENTE, [facility] [id number] [place] 10:47:00 10:47:00 DIOR [id number] [facility] 2023-02-09 2023-02-09 Outpatient Zuniga_F MM[facility] [id number] [place] 00:00:00 00:00:00 0320 Medical Group 2023-02-09 2023-02-09 Mervin MM [place] - [id number] [place] 00:00:00 00:00:00 Toan M[facility] Medical MD: [address] [address], [place] [address] , Ph. 2022-12-17 2022-12-17 Outpatient JOSE HUTCHINS, [facility] [id number] [place] 09:51:00 09:51:00 MARYCHUY [id number] [facility] 2022-10-23 2022-10-23 Outpatient Koudela_A [facility] [id number] -2022 [place] 00:00:00 00:00:00 0309 [facility] 2022-10-22 2022-10-22 Outpatient ANISHA DACDeacon, [facility] [id number] [place] 10:23:00 10:23:00 DIOR [id number] [facility] 2022-09-09 2022-09-09 Outpatient Koudela_A [facility] [id number] -2021 [place] 00:00:00 00:00:00 1018 [facility] 2022-09-09 2022-09-09 Blake Walsh [facility] [place] - [id number] [place] 00:00:00 00:00:00 : Ninfa Weaver [facility] [address] [place] [address], Otolaryngol [facility] [address] , Ph. 2022-08-27 2022-08-27 Outpatient Koudela_A [facility] [id number] [place] 00:00:00 00:00:00 1005 Medical Group 2022-08-27 2022-08-27 Leah [facility] [place] - [id number] M at[facility]or 00:00:00 00:00:00 Discovery karina Fry PA-C: Ninfa [address] [address] , Ph. 2022-07-30 2022-07-30 Outpatient Koudela_A [facility]G [id number] -2021 [place] 00:00:00 00:00:00 0907 [facility] 2022-07-30 2022-07-30 Leah [place] - [id number] M [facility]or 00:00:00 00:00:00 Discovery Ang da PA-C: [address] [place] [address] , Ph. 2022-07-16 2022-07-16 Outpatient Koudela_A MMG MMG [id number] -2021 [place] 00:00:00 00:00:00 0824 Medical Group 2022-07-16 2022-07-16 Leah [place] - [id number] M [facility]or 00:00:00 00:00:00 Discovery karina Fry PA-C: [address] [place] [address] , Ph. 2022-07-02 2022-07-02 Outpatient Koudela_A [facility] G [id number] -2021 [place] 00:00:00 00:00:00 0810 Medical Group 2022-07-02 2022-07-02 Leah [place] - [id number] M [facility]or 00:00:00 00:00:00 Discovery karina Fry PA-C: [address] [place] [address] , Ph. 2022-06-25 2022-06-25 Outpatient Koudela_A MMG MMG [id number] -2021 [place] 00:00:00 00:00:00 0803 Medical Group 2022-06-25 2022-06-25 Leah [place] - [id number] M [facility] 00:00:00 00:00:00 Discovery karina Fry PA-C: 600 [facility] - [address], [place] [address] , Ph. 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 2022-06-04 2022-06-04 [facility] [id number] -2021 [place] 11:18:00 11:18:00 0713 [facility] 2022-06-04 2022-06-04 Mervin [facility] [place] - [id number] [place] 00:00:00 00:00:00 Mary Ann Galeano MD: [address] [address], [place] [address] , Ph. 2022-05-28 2022-05-28 [facility] [id number] -2021 [place] 02:04:00 02:04:00 0706 [facility] 2022-05-28 2022-05-28 Blake Walsh [facility] [place] - [id number] [place] 00:00:00 00:00:00 MD: Ninfa [facility] [address], Otolaryngol [facility] [address] , Ph. 2022-05-27 2022-05-27 Out[facility] [id number] -2021 [place] 10:06:00 10:06:00 0705 [facility] 2022-03-04 2022-03-04 [place] [id number] [place] 12:25:00 12:25:00 0412 Medical Group 2022-03-04 2022-03-04 Outpatient Idania[facility] [id number] -2021 [place] 12:25:00 12:25:00 0413 Medical Group 2022-03-04 2022-03-04 Blake Walsh [facility] [place] - [id number] [place] 00:00:00 00:00:00 MD: Ninfa Weaver [facility] [address], [facility], Otolaryngol [facility] [address] , Ph. 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 2021-12-12 2021-12-12 Outpatient [facility]iga[facility]F [facility] [id number] [place] 02:38:00 02:38:00 0120 Medical [facility] 2021-12-12 2021-12-12 Mervin [facility] [place] - [id number] [place] 00:00:00 00:00:00 Toan Moe [facility] Medical MD: 600 [facility] [address], [place] [address] , Ph. 2021-09-09 2021-09-09 Outpatient [facility] [id number] [place] 12:17:00 12:17:00 1018 Medical Group 2021-09-09 2021-09-09 [place] [id number]- 2020 [place] 08:10:00 08:10:00 1222 Medical Group 2021-09-09 2021-09-09 Leah [facility] [place] - [id number] M at[place]or 00:00:00 00:00:00 Discovery karina Fry PA-C: Ninfa Medical [facility] - [address] [place] [address] , Ph. 2021-09-03 2021-09-03 Outpatient [facility] [id number] [place] 02:40:00 02:40:00 1012 [facility] 2021-09-03 2021-09-03 Blake Walsh MM [place] - [id number] [place] 00:00:00 00:00:00 : Ninfa [facility] [address], [place]olaryngol [place] [address] , Ph. 2021-07-18 2021-07-18 Outpatient Zuniga_F [facility] [id number] [place] 11:51:00 11:51:00 0826 [facility] 2021-07-18 2021-07-18 Outpatient Z[facility]iga[facility]F [facility] [id number] [place] 11:51:00 11:51:00 0827 Medical [facility] 2021-07-18 2021-07-18 Outpatient Z[facility]iga[facility]F [facility] [id number] [place] 11:51:00 11:51:00 0907 [facility] 2021-07-18 2021-07-18 Blake Walsh MM [place] - [id number] [place] 00:00:00 00:00:00 : Ninfa [facility] [address], [facility] [place] [facility] [address] , Ph. 2021-06-12 2021-06-12 Outpatient [facility] [id number] [place] 11:59:00 11:59:00 0721 Medical [facility] 2021-06-112021-06-11 Outpatient Zuniga_F MMG MMG [id number] [place] 02:16:00 02:16:00 0720 [facility] 2021-06-11 2021-06-11 Mervin MM [place] - [id number] [place] 00:00:00 00:00:00 Mary Ann Galeano Medical MD: [address] [place] [address] Family [address], [place] [address] , Ph. 2021-04-26 2021-04-26 Outpatient IHDE_G MMG MMG [id number] [place] 03:31:00 03:31:00 0604 [facility] 2021-02-28 2021-02-28 Outpatient IHDE_G MMG MMG [id number] [place] 10:10:00 10:10:00 0408 [facility] 2021-02-28 2021-02-28 Collin MM [place] - [id number] M at[place]or 00:00:00 00:00:00 Johnathan Márquez MD: Medical Medica l [address] [place] [address] [address], [place] [address] , Ph. [phone] 2021-02-27 2021-02-27 Outpatient IHDE_G MMG MMG [id number] [place] 04:20:00 04:20:00 0407 [facility] 2021-02-14 2021-02-14 Outpatient IHDE_G MMG MMG [id number] [place] 12:34:00 12:34:00 0325 [facility] 2021-02-14 2021-02-14 Collin MM [place] - [id number] M [facility] 00:00:00 00:00:00 Johnathan Márquez MD: Medical Medica l [address] [place] [address] [address], [place] [address] , Ph. [phone] 2021-01-18 2021-01-18 Outpatient Zuniga_F MMG MMG [id number]- [id number] [place] 11:15:00 11:15:00 0324 [facility] 2020-12-31 2020-12-31 [place] [id number]- 2020 [place] 10:45:00 10:45:00 0208 [facility] 2020-12-31 2020-12-31 Outpatient Zuniga_F MMG MMG [id number] [place] 10:45:00 10:45:00 0212 [facility] 2020-12-30 2020-12-30 Outpatient Zuniga_F MMG MMG [id number] [place] 01:06:00 01:06:00 0207 [facility] 2020-12-29 2020-12-29 Outpatient Zuniga_F MMG MMG [id number] [place] 11:57:00 11:57:00 0206 [facility] 2020-12-29 2020-12-29 Mervin MM [place] - [id number] [place] 00:00:00 00:00:00 Mary Ann Galeano Medical MD: [address] [place] [address] [address], [place] [address] , Ph. 2020-12-11 2020-12-11 [place] [id number]- 2020 [place] 11:29:00 11:29:00 0119 [facility] 2020-12-11 2020-12-11 Outpatient Zuniga_F MMG MMG [id number] 2020 [place] 11:29:00 11:29:00 0120 [facility] 2020-12-11 2020-12-11 Collin [facility] [place] - [id number] M at[place] 00:00:00 00:00:00 Johnathan Márquez MD: Medical Medica l [address] [place] [address] [address], [place] [address] , Ph. [phone] 2020-12-10 2020-12-10 Outpatient Zuniga_F MMG MMG [id number]- 2020 [place] 10:16:00 10:16:00 0118 Medical Group 2020-12-10 2020-12-10 Mervin MMG [place] - [id number] [place] 00:00:00 00:00:00 Mary Ann Galeano MD: 600 [facility] [address], [place] [address] , Ph. 2020-11-19 2020-11-19 Outpatient IHDE_G MMG MMG [id number] [place] 10:38:00 10:38:00 0108 [facility] 2020-11-19 2020-11-19 Outpatient IHDE_G MMG MMG [id number] [place] 10:38:00 10:38:00 0111 [facility] 2020-11-19 2020-11-19 Outpatient IHDE_G MMG MMG [id number] [place] 10:38:00 10:38:00 1228 [facility] 2020-11-06 2020-11-06 Outpatient IHDE_G MMG MMG [id number] [place] 11:06:00 11:06:00 1215 [facility] 2020-11-06 2020-11-06 Outpatient IHDE_G MMG MMG [id number] [place] 11:06:00 11:06:00 1216 [facility] 2020-11-06 2020-11-06 Collin MM [place] - [id number] M at[place]or 00:00:00 00:00:00 Johnathan Márquez MD: Medical Medica leslie [address] [facility] [address], [place] [address] , Ph. [phone] 2020-10-10 2020-10-10 Outpatient IHDE_G MMG MMG [id number] [place] 02:40:00 02:40:00 1118 [facility] 2020-10-10 2020-10-10 Outpatient IHDE_G MMG MMG [id number] [place] 02:40:00 02:40:00 1214 [facility] 2020-09-19 2020-09-19 Outpatient IHDE_G MMG MMG [id number] [place] 01:36:00 01:36:00 1028 [facility] 2020-09-18 2020-09-18 Outpatient IHDE_G MMG MMG [id number] [place] 11:16:00 11:16:00 1027 [facility] 2020-09-18 2020-09-18 Collin MMG [place] - [id number] M [facility] 00:00:00 00:00:00 Johnathan Márquez MD: Medical Medicdeacon nelson [address] [facility] [address], [place] [address] , Ph. [phone] 2020-09-14 2020-09-14 Outpatient IHDE_G MMG MMG [id number] [place] 09:43:00 09:43:00 1023 [facility] 2020-09-14 2020-09-14 Outpatient IHDE_G MMG MMG [id number] [place] 09:43:00 09:43:00 1026 [facility] 2020-09-04 2020-09-04 Outpatient Shield MMG MMG [id number] [place] 03:25:00 03:25:00 1013 [facility] 2020-09-04 2020-09-04 Outpatient Shield MMG MMG [id number] [place] 03:25:00 03:25:00 1014 [facility] 2020-09-04 2020-09-04 Mervin [facility]G [place] - [id number] [place] 00:00:00 00:00:00 Mary Ann Galeano MD: [address] [facility] [address], [place] [address] , Ph. 2019-11-02 2019-11-02 Outpatient [facility] CAR [id number] [facility] 12:36:00 12:36:00 2018-05-12 2018-05-12 Outpatient Shield MMG MMG [id number] [place] 10:44:00 10:44:00 0904 [facility] 2018-05-12 2018-05-12 Outpatient Shield MMG MMG [id number] [place] 10:44:00 10:44:00 1012 Medical Group Results Test Description Test Time Test Comments Results Result Comments Source parathyroid intact (PTH) 2023-06-02 09:14:00 Test Item Value Reference Range Interpretation Comme nts parathyroid intact (PTH) (test code = parathyroid intact (PTH)) 26 pg/mL 15-65 [facility]25-Hydroxyvitamin D3+25-Hydroxyvitamin D2 [Mass/volume] in Serum or [id number] 13:25:00 Test Item Value Reference Range Interpretation Comments vit D 25 hydroxy (test code = vit D 25 > 60 6.4-49.5 H hydroxy) [facility]/Creatinine [Mass Ratio] in [id number] 13:18:00 Test Item Value Reference Range Interpretation Comments urine total protein (test code = 104.5 mg/dL urine total protein) creatinine, urine random (test 67.5 mg/dL 39-259 code = creatinine, urine random) protein/creatinine ratio (test 1.5 mg/day 0-3.5 code = protein/creatinine ratio) [facility] [id number] 13:14:00 Test Item Value Reference Range Interpretation Comments glucose (test code = glucose) 98 mg/dL 82-115 blood urea nitrogen (test code = 55 mg/dL 8-23 H blood urea nitrogen) osmolality calculated,serum (test 287 mOsm/kg 280-300 code = osmolality calculated,serum) creatinine (test code = 2.04 mg/dL 0.70-1.20 H creatinine) glomerular filtration rate (test 31.42 L code = glomerular filtration rate) BUN/creatinine ratio (test code = 27.0 12.0-20.0 H BUN/creatinine ratio) sodium level (test code = sodium 136 mmol/L 135-145 level) potassium level (test code = 5.8 mmol/L 3.5-5.2 H potassium level) chloride level (test code = 109 mmol/L 98-108 H chloride level) CO2 (test code = CO2) 18 mmol/L 21-32 L anion gap (test code = anion gap) 14.8 mEq/L 12.0-20.0 calcium level (test code = 9.5 mg/dL 8.8-10.2 calcium level) phosphorous level (test code = 3.4 mg/dL 2.5-4.5 phosphorous level) albumin (test code = albumin) 3.8 g/dL 3.5-5.2 [id number] 13:00:00 Test Item Value Reference Range Interpretation Comments color, urine (test code = light yellow color, urine) appearance, urine (test code = clear clear appearance, urine) urine glucose (test code = negative negative urine glucose) bilirubin, urine (test code = negative negative bilirubin, urine) ketone, urine (test code = negative negative ketone, urine) specific gravity,urine (test 1.016 1.003-1.030 code = specific gravity,urine) blood urine (test code = blood negative negative urine) pH,urine (test code = 5.500 5-9 pH,urine) protein urine (UA) (test code 2+ (100 mg/dL) negative A = protein urine (UA)) urobilinogen, urine (test code normal 0.2-1.0 = urobilinogen, urine) nitrate, urine (test code = negative negative nitrate, urine) urine leukocyte esterase (test negative negative code = urine leukocyte esterase) RBC, urine (test code = RBC, <1 0-5 urine) WBC, urine (test code = WBC, <1 0-5 urine) epithelial cell (test code = <1 0-5 epithelial cell) bacteria, urine (test code = none detected none detect bacteria, urine) casts,urine (test code = 2-5 none detect casts,urine) urine culture added? (test no code = urine culture added?) [id number] 13:00:00 Test Item Value Reference Range Interpretation Comments color, urine (test code = light yellow color, urine) appearance, urine (test code = clear clear appearance, urine) urine glucose (test code = negative negative urine glucose) bilirubin, urine (test code = negative negative bilirubin, urine) ketone, urine (test code = negative negative ketone, urine) specific gravity,urine (test 1.016 1.003-1.030 code = specific gravity,urine) blood urine (test code = blood negative negative urine) pH,urine (test code = 5.500 5-9 pH,urine) protein urine (UA) (test code 2+ (100 mg/dL) negative A = protein urine (UA)) urobilinogen, urine (test code normal 0.2-1.0 = urobilinogen, urine) nitrate, urine (test code = negative negative nitrate, urine) urine leukocyte esterase (test negative negative code = urine leukocyte esterase) RBC, urine (test code = RBC, <1 0-5 urine) WBC, urine (test code = WBC, <1 0-5 urine) epithelial cell (test code = <1 0-5 epithelial cell) bacteria, urine (test code = none detected none detect bacteria, urine) casts,urine (test code = 2-5 none detect casts,urine) urine culture added? (test no code = urine culture added?) [facility] [id number] 12:59:00 Test Item Value Reference Range Interpretation Comments Hemoglobin A1c/Hemoglobin.total in 6.3 % 4.0-6.0 H Blood (test code = 4548-4) [facility] Ag [Presence] in Respiratory specimen by Rapid [id number] 11:45:00 Test Item Value Reference Range Interpretation Comments SARS-CoV - 2 (test code = SARS-CoV - positive 2) [facility] Ag [Presence] in Respiratory specimen by Rapid [id number] 11:45:00 Test Item Value Reference Range Interpretation Comments SARS-CoV - 2 (test code = SARS-CoV - positive 2) [facility]) Ag [Presence] in Respiratory specimen by Rapid [id number] 11:45:00 Test Item Value Reference Range Interpretation Comments SARS-CoV - 2 (test code = SARS-CoV - positive 2) [facility]) Ag [Presence] in Respiratory specimen by Rapid [id number] 11:45:00 Test Item Value Reference Range Interpretation Comments SARS-CoV - 2 (test code = SARS-CoV - positive 2) [facility]) Ag [Presence] in Respiratory specimen by Rapid [id number] 15:59:00 Test Item Value Reference Range Interpretation Comments SARS-CoV - 2 (test code = SARS-CoV - negative 2) [facility]OVID-19) Ag [Presence] in Respiratory specimen by Rapid [id number] 15:59:00 Test Item Value Reference Range Interpretation Comments SARS-CoV - 2 (test code = SARS-CoV - negative 2) [facility]OVID-19) Ag [Presence] in Respiratory specimen by Rapid [id number] 15:59:00 Test Item Value Reference Range Interpretation Comments SARS-CoV - 2 (test code = SARS-CoV - negative 2) [facility]OVID-19) Ag [Presence] in Respiratory specimen by Rapid [id number] 15:59:00 Test Item Value Reference Range Interpretation Comments SARS-CoV - 2 (test code = SARS-CoV - negative 2) [facility]OVID-19) Ag [Presence] in Respiratory specimen by Rapid [id number] 15:59:00 Test Item Value Reference Range Interpretation Comments SARS-CoV - 2 (test code = SARS-CoV - negative 2) [facility], [id number] 11:46:53 Test Item Value Reference Range Interpretation Comments Strep Result (test code = Strep negative Result) [facility], [id number] 11:46:53 Test Item Value Reference Range Interpretation Comments Strep Result (test code = Strep negative Result) [facility] A and B and SARS-CoV+SARS-CoV-2 (COVID- 19) Ag panel - Upper respiratory specimen by Rapid [id number] 11:46:48 Test Item Value Reference Range Interpretation Comments RAPID SARS COV (test code = RAPID negative SARS COV) RAPID FLU A (test code = RAPID FLU negative A) RAPID FLU B (test code = RAPID FLU negative B) [facility] A and B and SARS-CoV+SARS-CoV-2 (COVID- 19) Ag panel - Upper respiratory specimen by Rapid [id number] 11:46:48 Test Item Value Reference Range Interpretation Comments RAPID SARS COV (test code = RAPID negative SARS COV) RAPID FLU A (test code = RAPID FLU negative A) RAPID FLU B (test code = RAPID FLU negative B) [facility] A[facility] [Mass/volume] in [id number] 07:08:00 Test Item Value Reference Range Interpretation Comments Hemoglobin A1c [Mass/volume] in Blood 7.0 % 4.0-6.0 H (test code = 15288-5) [facility] 2000 panel - Serum or Plasma 2021-12-04 07:08:00 Test Item Value Reference Range Interpretation Comments glucose (test code = glucose) 95 mg/dL 82-115 Urea nitrogen [Mass/volume] in 39 mg/dL 8-23 H Serum or Plasma (test code = 3094-0) osmolality calculated,serum (test 289 mOsm/kg 280-300 code = osmolality calculated,serum) creatinine (test code = 1.31 mg/dL 0.70-1.20 H creatinine) glomerular filtration rate (test 52.65 L code = glomerular filtration rate) Urea nitrogen/Creatinine [Mass 29.8 12.0-20.0 H Ratio] in Serum or Plasma (test code = 3097-3) sodium level (test code = sodium 140 mmol/L 135-145 level) Potassium [Moles/volume] in Body 4.9 mmol/L 3.5-5.2 fluid (test code = 2821-7) chloride level (test code = 105 mmol/L 98-108 chloride level) CO2 (test code = CO2) 26 mmol/L 21-32 anion gap (test code = anion gap) 13.9 mEq/L 12.0-20.0 calcium level (test code = 9.0 mg/dL 8.8-10.2 calcium level) total protein (test code = total 7.0 g/dL 6.6-8.7 protein) albumin (test code = albumin) 3.6 g/dL 3.5-5.2 globulin (test code = globulin) 3.4 g/dL 1.5-4.5 A/G ratio (test code = A/G ratio) 1.1 >1.0 bilirubin,total (test code = 0.5 mg/dL 0.0-1.2 bilirubin,total) AST/SGOT (test code = AST/SGOT) 48 U/L 15-40 H Alanine aminotransferase 60 U/L 0-41 H [Enzymatic activity/volume] in Serum or Plasma (test code = 1742-6) Alkaline phosphatase [Enzymatic 231 U/L 40-130 H activity/volume] in Serum or Plasma (test code = 6768-6) [facility] 1996 panel - Serum or [id number] 07:08:00 Test Item Value Reference Range Interpretation Comments cholesterol level (test code = 103 mg/dL 150-200 L cholesterol level) triglycerides level (test code = 46 mg/dL <150 triglycerides level) HDL cholesterol (test code = HDL 57 mg/dL >55 cholesterol) LDL cholesterol direct (test code = 44 mg/dL <100 LDL cholesterol direct) cholesterol risk ratio (test code = 1.807 cholesterol risk ratio) [facility] complete W Reflex Culture panel - Urine 2021-12-04 07:05:00 Test Item Value Reference Range Interpretation Comments Color of Urine by Auto (test light yellow code = 94406-8) Appearance of Urine (test code clear clear = 5767-9) Glucose [Presence] in Urine by negative negative Automated test strip (test code = 65773-0) Bilirubin.total [Mass/volume] negative negative in Urine (test code = 1978-6) Ketones [Mass/volume] in Urine negative negative by Automated test strip (test code = 51845-5) Specific gravity of Urine by 1.014 1.003-1.030 Automated test strip (test code = 21586-9) blood urine (test code = blood negative negative urine) pH of Urine (test code = 6.500 5-9 2756-5) protein urine (UA) (test code = =2+ (200 negative H protein urine (UA)) Urobilinogen [Presence] in normal 0.2-1.0 Urine (test code = 35650-8) Nitrite [Presence] in Urine by negative negative Test strip (test code = 5802-4) Leukocyte esterase [Presence] negative negative in Urine by Automated test strip (test code = 91924-7) Erythrocytes [#/volume] in <1 0-5 Urine by Automated count (test code = 798-9) Leukocytes [#/area] in Urine <1 0-5 sediment by Automated count (test code = 88701-8) Epithelial cells [Presence] in <1 0-5 Urine sediment by Light microscopy (test code = 03421-1) Bacteria identified in Urine by none detected none detect Culture (test code = 630-4) Casts [#/area] in Urine none detected none detect sediment by Automated count (test code = 70360-3) urine culture added? (test code no = urine culture added?) [facility]antslrenalp2022-01-12 07:05:00 Test Item Value Reference Range Interpretation Comments Glucose [Mass/volume] in Serum or 93 mg/dL 82-115 Plasma (test code = 2345-7) Urea nitrogen [Mass/volume] in 41 mg/dL 8-23 H Serum or Plasma (test code = 3094-0) osmolality calculated,serum (test 288 mOsm/kg 280-300 code = osmolality calculated,serum) creatinine (test code = 1.33 mg/dL 0.70-1.20 H creatinine) glomerular filtration rate (test 51.73 L code = glomerular filtration rate) Urea nitrogen/Creatinine [Mass 30.8 12.0-20.0 H Ratio] in Serum or Plasma (test code = 3097-3) sodium level (test code = sodium 139 mmol/L 135-145 level) potassium level (test code = 4.8 mmol/L 3.5-5.2 potassium level) chloride level (test code = 103 mmol/L 98-108 chloride level) CO2 (test code = CO2) 25 mmol/L 21-32 anion gap (test code = anion gap) 15.8 mEq/L 12.0-20.0 calcium level (test code = 9.2 mg/dL 8.8-10.2 calcium level) phosphorous level (test code = 3.5 mg/dL 2.5-4.5 phosphorous level) albumin (test code = albumin) 3.4 g/dL 3.5-5.2 L [facility]antsCOMPREHENSIVE METABOLIC [id number] 08:00:00 Test Item Value Reference Range Interpretation Comments SODIUM (test code = NA) 140 mEq/L 134-147 N POTASSIUM (test code = 5.1 mEq/L 3.4-5.0 H K) CHLORIDE (test code = 111 mEq/L 100-108 H CL) CARBON DIOXIDE (test 22 mEq/l 21-33 N code = CO2) ANION GAP (test code = 12 0-20 N GAP) GLUCOSE (test code = 204 mg/dL 70-110 H GLU) BLOOD UREA NITROGEN 16 mg/dL 7-18 N (test code = BUN) GLOMERULAR FILTRATION 58.4 70-80 L Units of measure = RATE (test code = GFR) ml/mi n/1.73 m2 CREATININE (test code = 1.2 mg/dL 0.6-1.3 N CREAT) TOTAL PROTEIN (test 6.0 g/dL 6.4-8.2 L code = PROT) ALBUMIN (test code = 3.10 g/dL 3.4-5.0 L ALB) CALCIUM (test code = 8.7 mg/dL 8.0-10.5 N CA) BILIRUBIN TOTAL (test 0.60 mg/dL 0.0-1.0 N code = BILT) SGOT/AST (test code = 29 IUnit/L 15-37 N AST) SGPT/ALT (test code = 25 IUnit/L 30-65 L ALT) ALKALINE PHOSPHATASE 228 IUnit/L 20-125 H TOTAL (test code = ALKP) - XR CHEST 1 [id number] 07:30:00 [facility] 1940 Sex: M FAX: Sarah FowlerP [phone] [place]: St: ADM FAX: Gatito Lagos [phone] FAX: Ced Garcia MD [phone] Name: VALERIA POLLACK [facility] : 1940 Age/S: 80/M [address] [place] [address] Blvd Unit #:[id number] Loc: [address] [address] Phys: LamSarah ALLEN Acct: [id number] Dis Date: Status: ADM IN PHONE #: [phone] Exam Date: 01/31/2021 0545 FAX #: [phone] Reason: post watchmanEXAMS: CPT CODE: [id number] XR CHEST 1 V 96372 CHEST RADIOGRAPH ONE VIEW 01/31/2021 AT 0504 HOURS. CLINICAL HISTORY: Post watchman procedure on 01/30/2021. COMPARISON STUDIES: Chest 2 views 01/28/2021. FINDINGS: One view of the chest was obtained. No visible procedural complication is identified considering history. Prior median sternotomy and TAVR procedure identified with left single lead pacemaker batte ry. The lungs are clear. There are no pleural effusions. Severe thoracic spondylosis. IMPRESSION: 1. No visible procedural complication. SL: [id number] at 0730 Reported and signed by: Rodney Cox M.D. CC: Sarah Fritz; Gatito Webb MD; Ced Galicia MD Technologist: Александр Heck, RT(R); Sariah Spears RT(R) Trnscrd Date/Time/By: 01/31/2021 (75) : By: [email or web address] Orig Print D/T: S: 01/31/2021(4373) PAGE 1 Signed ReportCBC W/AUTO [id number] 06:57:00 Test Item Value Reference Range Interpretation Comments WHITE BLOOD CELL (test code = 4.7 x10 3/uL 4.5-11.0 N WBC) RED BLOOD CELL (test code = 2.56 x10 6/uL 4.00-5.60 L RBC) HEMOGLOBIN (test code = HGB) 7.8 g/dL 12.5-16.9 L HEMATOCRIT (test code = HCT) 26.4 % 37.5-50.7 L MEAN CELL VOLUME (test code = 103.1 fL 81.0-99.0 H MCV) MEAN CELL HGB (test code = MCH) 30.5 pg 27.0-33.0 N MEAN CELL HGB CONCETRATION 29.5 g/dL 33.0-37.0 L (test code = MCHC) RED CELL DISTRIBUTION WIDTH CV 17.9 % 11.5-14.5 H (test code = RDW) RED CELL DISTRIBUTION WIDTH SD 66.5 fL 37.0-54.0 H (test code = RDW-SD) PLATELET COUNT (test code = 183 x10 3/uL 150-400 N PLT) MEAN PLATELET VOLUME (test code 11.1 fL 7.0-9.0 H = MPV) NEUTROPHIL % (test code = NT%) 84.2 % 56.0-77.0 H IMMATURE GRANULOCYTE % (test 0.4 % 0.0-2.0 N code = IG%) LYMPHOCYTE % (test code = LY%) 9.0 % 14.0-32.0 L MONOCYTE % (test code = MO%) 6.2 % 4.8-9.0 N EOSINOPHIL % (test code = EO%) 0.0 % 0.3-3.7 L BASOPHIL % (test code = BA%) 0.2 % 0.0-2.0 N NUCLEATED RBC % (test code = 0.0 % 0-0 N NRBC%) NEUTROPHIL # (test code = NT#) 3.92 x10 3/uL 2.0-7.6 N IMMATURE GRANULOCYTE # (test 0.02 x10 3/uL 0.00-0.03 N code = IG#) LYMPHOCYTE # (test code = LY#) 0.42 x10 3/uL 1.0-3.8 L MONOCYTE # (test code = MO#) 0.29 x10 3/uL 0.1-0.8 N EOSINOPHIL # (test code = EO#) 0.00 x10 3/uL 0.0-0.2 N BASOPHIL # (test code = BA#) 0.01 x10 3/uL 0.0-0.2 N NUCLEATED RBC # (test code = 0.00 x10 3/uL 0.0-0.1 N NRBC#) MANUAL DIFF REQUIRED (test code NO = MDIFF) CBC W/AUTO [id number] 06:40:00 Test Item Value Reference Range Interpretation Comments WHITE BLOOD CELL (test code = x10 3/uL 4.5-11.0 WBC) RED BLOOD CELL (test code = RBC) x10 6/uL 4.00-5.60 HEMOGLOBIN (test code = HGB) g/dL 12.5-16.9 HEMATOCRIT (test code = HCT) % 37.5-50.7 MEAN CELL VOLUME (test code = fL 81.0-99.0 MCV) MEAN CELL HGB (test code = MCH) pg 27.0-33.0 MEAN CELL HGB CONCETRATION (test g/dL 33.0-37.0 code = MCHC) RED CELL DISTRIBUTION WIDTH CV % 11.5-14.5 (test code = RDW) PLATELET COUNT (test code = PLT) 183 x10 3/uL 150-400 N NEUTROPHIL % (test code = NT%) % 56.0-77.0 LYMPHOCYTE % (test code = LY%) % 14.0-32.0 NEUTROPHIL # (test code = NT#) x10 3/uL 2.0-7.6 LYMPHOCYTE # (test code = LY#) x10 3/uL 1.0-3.8 MANUAL DIFF REQUIRED (test code = MDIFF) [id number] 17:22:00 Test Item Value Reference Range Interpretation Comments GLUBED (test code = 102 MG/DL 70-110 N Performe d by certified GLUBED) 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 [facility] [id number] 16:44:00 Test Item Value Reference Range Interpretation Comments ACT-ISTAT (test code 252 SEC 74-137 H Perform ed by certified = ACTI) 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 [facility] [id number] 16:44:00 Test Item Value Reference Range Interpretation Comments ACT-ISTAT (test code 208 SEC 74-137 H Perform ed by certified = ACTI) 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 Positiv e results do not rule out bacterial infection or co -infection with other viru ses. Negative result s do not preclude SARS-C oV-2 infection andsh ould not be used as the sheri e basis for patient managementdecis ions. Negative result s must be combined with otherclinical observations, p atient history, and epidemiological information . Detection of SARS-CoV-2 RNA may be affe cted bysample collec tion methods, storag e conditions, and /or stageof infection. Alanna l RNA mutations, vacc inations, antiviraltherap eutics, antibiotics, chemotherapeuti c orimmunosuppres amalia drugs have not been e valuated for effectson d etection. Results are for the identification of SARS-CoV-2 RNA usingthe Burris M2000 Sy stem under the FDA Emergen cy UseAuthorizatio n. The testing is perf ormed by jenna curtis in the procedures for the Burris M2000 molecular diagnostic SARS-CoV-2 les blas in vitro. - XR CHEST 2 [id number] 13:41:00 [facility] : 1940 Sex: M FAX: Ced Garcia MD [phone] [place]: St: PRE Name: VALERIA POLLACK [facility] : 1940 Age/S: 80/M [address] [place] [address] Unit #: [id number] Loc: [place] [address] Phys: Ced Galicia MD Acct: [id number] Dis Date: Status: PRE SDC PHONE #: [phone] Exam Date: 01/28/2021 1326 FAX #: [phone] Reason: PREOP EXAMS: CPT CODE: [id number] XR CHEST 2 V 44454 PROCEDURE: CHEST TWO VIEW INDICATION: Preoperative exam, atrial fibrillation COMPARISON: None. FINDINGS: The lungs are clear. The pleura, cardiomediastinal silhouette and ribs are normal. No vascular congestion is present. Midline sternotomy wires and pacemaker are present. There are degenerative changes in the mid thoracic spine. IMPRESSION: No acute cardiopulmonary process. SL: [id number] at 1341 Reported and signed by: Deven Scott M.D. CC: Ced Galicia MD Technologist: RT Chanda(R) Trnscrd Date/Time/By: 01/28/2021 (1341) : By: [email or web address] [facility] Print D/T: S: 01/28/2021 (3156) PAGE 1 Signed ReportBASIC METABOLIC PANEL 2021-01-28 13:39:00 Test Item Value Reference Range Interpretation Comments SODIUM (test code = NA) 141 mEq/L 134-147 N POTASSIUM (test code = 4.8 mEq/L 3.4-5.0 N K) CHLORIDE (test code = 112 mEq/L 100-108 H CL) CARBON DIOXIDE (test 27 mEq/l 21-33 N code = CO2) ANION GAP (test code = 7 0-20 N GAP) GLUCOSE (test code = 155 mg/dL 70-110 H GLU) BLOOD UREA NITROGEN 23 mg/dL 7-18 H (test code = BUN) GLOMERULAR FILTRATION 53.3 70-80 L Units of measure = RATE (test code = GFR) ml/mi n/1.73 m2 CREATININE (test code = 1.3 mg/dL 0.6-1.3 N CREAT) CALCIUM (test code = 8.7 mg/dL 8.0-10.5 N CA) [id number] 13:39:00 Test Item Value Reference Range Interpretation Comments PREALBUMIN (test code = PREALB) 14.0 mg/dL 16.0-40.0 L PROTHROMBIN [id number] 13:14:00 Test Item Value Reference Range Interpretation Comments PROTHROMBIN TIME 16.6 SECONDS 9.3-12.9 H PATIENT (test code = PTP) INTERNATIONAL NORMAL 1.5 0.8-1.2 H TARGET INR BY RATIO (test code = INDICATIO N Indication INR) INR1. Prophylax is of venous thrombos is 2.0 - 3.0 (orthope dic surgery), Proph ylaxis of venous throm bosis (other than hig h-risk surgery), Treat ment of Deep Vein Thrombosis/Pulm onary Embolism, Preve ntion of systemic emb olism - Tissue heart va lves, Acute Myocardia l Infarction (to prevent systemic emboli sm), Valvular heart disease, Atrial Fibrillation, Bileaflet mecha nical valve in aortic position.2. Mec hanical prosthetic valv es (high risk), 2. 5 - 3.5 Presence of Lup us Anticoagulant o r Antiphospholipi d Antibodies, Pre vention of systemic emb olism - Acute Myocardia l Infarction (to prevent recurrent infar ct). CBC W/AUTO [id number] 13:07:00 Test Item Value Reference Range Interpretation Comments WHITE BLOOD CELL (test code = 4.7 x10 3/uL 4.5-11.0 N WBC) RED BLOOD CELL (test code = 2.62 x10 6/uL 4.00-5.60 L RBC) HEMOGLOBIN (test code = HGB) 7.9 g/dL 12.5-16.9 L HEMATOCRIT (test code = HCT) 26.4 % 37.5-50.7 L MEAN CELL VOLUME (test code = 100.8 fL 81.0-99.0 H MCV) MEAN CELL HGB (test code = MCH) 30.2 pg 27.0-33.0 N MEAN CELL HGB CONCETRATION 29.9 g/dL 33.0-37.0 L (test code = MCHC) RED CELL DISTRIBUTION WIDTH CV 17.7 % 11.5-14.5 H (test code = RDW) RED CELL DISTRIBUTION WIDTH SD 63.7 fL 37.0-54.0 H (test code = RDW-SD) PLATELET COUNT (test code = 188 x10 3/uL 150-400 N PLT) MEAN PLATELET VOLUME (test code 10.9 fL 7.0-9.0 H = MPV) NEUTROPHIL % (test code = NT%) 81.2 % 56.0-77.0 H IMMATURE GRANULOCYTE % (test 0.2 % 0.0-2.0 N code = IG%) LYMPHOCYTE % (test code = LY%) 9.7 % 14.0-32.0 L MONOCYTE % (test code = MO%) 5.3 % 4.8-9.0 N EOSINOPHIL % (test code = EO%) 3.2 % 0.3-3.7 N BASOPHIL % (test code = BA%) 0.4 % 0.0-2.0 N NUCLEATED RBC % (test code = 0.0 % 0-0 N NRBC%) NEUTROPHIL # (test code = NT#) 3.83 x10 3/uL 2.0-7.6 N IMMATURE GRANULOCYTE # (test 0.01 x10 3/uL 0.00-0.03 N code = IG#) LYMPHOCYTE # (test code = LY#) 0.46 x10 3/uL 1.0-3.8 L MONOCYTE # (test code = MO#) 0.25 x10 3/uL 0.1-0.8 N EOSINOPHIL # (test code = EO#) 0.15 x10 3/uL 0.0-0.2 N BASOPHIL # (test code = BA#) 0.02 x10 3/uL 0.0-0.2 N NUCLEATED RBC # (test code = 0.00 x10 3/uL 0.0-0.1 N NRBC#) MANUAL DIFF REQUIRED (test code NO = MDIFF) CBC W/AUTO [id number] 13:04:00 Test Item Value Reference Range Interpretation Comments WHITE BLOOD CELL (test code = x10 3/uL 4.5-11.0 WBC) RED BLOOD CELL (test code = RBC) x10 6/uL 4.00-5.60 HEMOGLOBIN (test code = HGB) g/dL 12.5-16.9 HEMATOCRIT (test code = HCT) % 37.5-50.7 MEAN CELL VOLUME (test code = fL 81.0-99.0 MCV) MEAN CELL HGB (test code = MCH) pg 27.0-33.0 MEAN CELL HGB CONCETRATION (test g/dL 33.0-37.0 code = MCHC) RED CELL DISTRIBUTION WIDTH CV % 11.5-14.5 (test code = RDW) PLATELET COUNT (test code = PLT) 188 x10 3/uL 150-400 N NEUTROPHIL % (test code = NT%) % 56.0-77.0 LYMPHOCYTE % (test code = LY%) % 14.0-32.0 NEUTROPHIL # (test code = NT#) x10 3/uL 2.0-7.6 LYMPHOCYTE # (test code = LY#) x10 3/uL 1.0-3.8 MANUAL DIFF REQUIRED (test code = MDIFF) Basic metabolic 2000 panel - Serum or [id number] 08:10:00 Test Item Value Reference Range Interpretation Comments Glucose [Mass/volume] in Serum or 84 mg/dL 82-115 Plasma (test code = 2345-7) Urea nitrogen [Mass/volume] in 40 mg/dL 8-23 H Serum or Plasma (test code = 3094-0) osmolality calculated,serum (test 289 mOsm/kg 280-300 code = osmolality calculated,serum) creatinine (test code = 1.4 mg/dL 0.70-1.20 H creatinine) glomerular filtration rate (test 48.89 L code = glomerular filtration rate) Urea nitrogen/Creatinine [Mass 28.6 12-20 H Ratio] in Serum or Plasma (test code = 3097-3) sodium level (test code = sodium 140 mmol/L 135-145 level) potassium level (test code = 4.4 mmol/L 3.5-5.2 potassium level) chloride level (test code = 109 mmol/L 98-108 H chloride level) CO2 (test code = CO2) 23 mmol/L 21-32 anion gap (test code = anion gap) 12.4 mEq/L 12-20 calcium level (test code = 9.1 mg/dL 8.8-10.2 calcium level) [facility] W Auto Differential panel - [id number] 11:00:00 Test Item Value Reference Range Interpretation Comments white blood count (test code = 4.4 K/uL 4.0-12.3 white blood count) red blood count (test code = red 3.14 M/uL 3.80-5.80 L blood count) hemoglobin (test code = 9.5 g/dL 11.7-17.2 L hemoglobin) hematocrit (test code = 31.3 % 35.0-51.0 L hematocrit) MCV [Entitic volume] (test code = 99.7 fL 83-100 64618-0) mean corpuscular hemoglobin (test 30.3 pg 26.8-33.4 code = mean corpuscular hemoglobin) mean corpuscular HGB conc (test 30.4 g/dL 30-35 code = mean corpuscular HGB conc) red cell distribution width (test 15.9 % 12.0-14.0 H code = red cell distribution width) platelet count (test code = 215 K/uL 175-450 platelet count) mean platelet volume (test code = 10.3 fL 9.4-12.6 mean platelet volume) Segmented neutrophils/100 73.8 % 44.7-82.4 leukocytes in Blood (test code = 91488-9) Immature granulocytes [#/volume] 0.0 K/uL 0.0-0.03 H in Blood (test code = 97763-3) lymphocyte% (test code = 12.0 % 10.0-50.0 lymphocyte%) mono % (test code = mono %) 8.0 % 3.9-13.4 eos % (test code = eos %) 5.2 % 0.0-6.4 Basophils/100 leukocytes in 0.5 % 0.2-1.2 Unspecified specimen (test code = 35757-8) Band form neutrophils [#/volume] 3.25 K/uL 1.78-5.38 in Blood (test code = 41778-5) Lymphocytes [#/volume] in 0.5 K/uL 1.32-3.57 L Unspecified specimen by Automated count (test code = 71360-4) mono # (test code = mono #) 0.35 K/uL 0.30-0.82 eos # (test code = eos #) 0.23 K/uL 0.04-0.54 basophil # (test code = basophil 0.02 K/uL 0.01-0.08 #) NRBC% (test code = NRBC%) 0 /100 WBC 0-0.2 NRBC# (test code = NRBC#) 0 K/uL [facility]Different[facility] panel, method unspecified - [id number] 11:00:00NeutrophilsLymphocyteAtypical LymphMonocytePlatelet EstimateMaSimpson General HospitalComprehensive metabolic 2000 panel - Serum or [id number] 11:00:00 Test Item Value Reference Range Interpretation Comments Glucose [Mass/volume] in Serum or 154 mg/dL 82-115 H Plasma (test code = 2345-7) Urea nitrogen [Mass/volume] in 27 mg/dL 8-23 H Serum or Plasma (test code = 3094-0) osmolality calculated,serum (test 282 mOsm/kg 280-300 code = osmolality calculated,serum) creatinine (test code = 1.4 mg/dL 0.70-1.20 H creatinine) glomerular filtration rate (test 48.89 L code = glomerular filtration rate) Urea nitrogen/Creatinine [Mass 19.3 12-20 Ratio] in Serum or Plasma (test code = 3097-3) sodium level (test code = sodium 137 mmol/L 135-145 level) potassium level (test code = 4.2 mmol/L 3.5-5.2 potassium level) chloride level (test code = 102 mmol/L 98-108 chloride level) CO2 (test code = CO2) 24 mmol/L 21-32 anion gap (test code = anion gap) 15.2 mEq/L 12-20 calcium level (test code = 9.1 mg/dL 8.8-10.2 calcium level) total protein (test code = total 6.7 g/dL 6.6-8.7 protein) albumin (test code = albumin) 3.5 g/dL 3.5-5.2 globulin (test code = globulin) 3.2 gm/dL A/G ratio (test code = A/G ratio) 1.1 >1.0 bilirubin,total (test code = 0.6 mg/dL 0.0-1.2 bilirubin,total) AST/SGOT (test code = AST/SGOT) 36 U/L 15-40 Alanine aminotransferase 33 U/L 0-41 [Enzymatic activity/volume] in Serum or Plasma (test code = 1742-6) Alkaline phosphatase [Enzymatic 256 U/L 40-130 H activity/volume] in Serum or Plasma (test code = 6768-6) [facility] W Auto Differential panel - [id number] 11:00:00 Test Item Value Reference Range Interpretation Comments white blood count (test code = 4.4 K/uL 4.0-12.3 white blood count) red blood count (test code = red 3.14 M/uL 3.80-5.80 L blood count) hemoglobin (test code = 9.5 g/dL 11.7-17.2 L hemoglobin) hematocrit (test code = 31.3 % 35.0-51.0 L hematocrit) MCV [Entitic volume] (test code = 99.7 fL 83-100 83083-8) mean corpuscular hemoglobin (test 30.3 pg 26.8-33.4 code = mean corpuscular hemoglobin) mean corpuscular HGB conc (test 30.4 g/dL 30-35 code = mean corpuscular HGB conc) red cell distribution width (test 15.9 % 12.0-14.0 H code = red cell distribution width) platelet count (test code = 215 K/uL 175-450 platelet count) mean platelet volume (test code = 10.3 fL 9.4-12.6 mean platelet volume) Segmented neutrophils/100 73.8 % 44.7-82.4 leukocytes in Blood (test code = 35740-2) Immature granulocytes [#/volume] 0.0 K/uL 0.0-0.03 H in Blood (test code = 14183-9) lymphocyte% (test code = 12.0 % 10.0-50.0 lymphocyte%) mono % (test code = mono %) 8.0 % 3.9-13.4 eos % (test code = eos %) 5.2 % 0.0-6.4 Basophils/100 leukocytes in 0.5 % 0.2-1.2 Unspecified specimen (test code = 95453-3) Band form neutrophils [#/volume] 3.25 K/uL 1.78-5.38 in Blood (test code = 28683-7) Lymphocytes [#/volume] in 0.5 K/uL 1.32-3.57 L Unspecified specimen by Automated count (test code = 57152-3) mono # (test code = mono #) 0.35 K/uL 0.30-0.82 eos # (test code = eos #) 0.23 K/uL 0.04-0.54 basophil # (test code = basophil 0.02 K/uL 0.01-0.08 #) NRBC% (test code = NRBC%) 0 /100 WBC 0-0.2 NRBC# (test code = NRBC#) 0 K/uL [facility], method unspecified - [id number] 11:00:00NeutrophilsLymphocyteAtypical LymphMonocytePlatelet EstimateMaSimpson General HospitalComprehensive metabolic 2000 panel - Serum or [id number] 11:00:00 Test Item Value Reference Range Interpretation Comments Glucose [Mass/volume] in Serum or 154 mg/dL 82-115 H Plasma (test code = 2345-7) Urea nitrogen [Mass/volume] in 27 mg/dL 8-23 H Serum or Plasma (test code = 3094-0) osmolality calculated,serum (test 282 mOsm/kg 280-300 code = osmolality calculated,serum) creatinine (test code = 1.4 mg/dL 0.70-1.20 H creatinine) glomerular filtration rate (test 48.89 L code = glomerular filtration rate) Urea nitrogen/Creatinine [Mass 19.3 12-20 Ratio] in Serum or Plasma (test code = 3097-3) sodium level (test code = sodium 137 mmol/L 135-145 level) potassium level (test code = 4.2 mmol/L 3.5-5.2 potassium level) chloride level (test code = 102 mmol/L 98-108 chloride level) CO2 (test code = CO2) 24 mmol/L 21-32 anion gap (test code = anion gap) 15.2 mEq/L 12-20 calcium level (test code = 9.1 mg/dL 8.8-10.2 calcium level) total protein (test code = total 6.7 g/dL 6.6-8.7 protein) albumin (test code = albumin) 3.5 g/dL 3.5-5.2 globulin (test code = globulin) 3.2 gm/dL A/G ratio (test code = A/G ratio) 1.1 >1.0 bilirubin,total (test code = 0.6 mg/dL 0.0-1.2 bilirubin,total) AST/SGOT (test code = AST/SGOT) 36 U/L 15-40 Alanine aminotransferase 33 U/L 0-41 [Enzymatic activity/volume] in Serum or Plasma (test code = 1742-6) Alkaline phosphatase [Enzymatic 256 U/L 40-130 H activity/volume] in Serum or Plasma (test code = 6768-6) [facility] Notes Date/Time Note Provider Source 2021-01-31 15:31:00-00:00 [facility] Discharge Summary REPORT#:[id number] REPORT STATUS: Signed DATE:01/31/21 TIME: 153 PATIENT: VALERIA POLLACK UNIT #: [id number] ROOM/BED: [address] : 41 AGE: 80 SEX: M ATTEND: Johnna Webb MD ADM 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 * ALL edits or amendments must be made on the [employer]/computer document * PCP PCP PCP: PCP: Undefined Provider Discharge to: home General Information Date of admission: Observation Start Date: Date of admission: 01/30/21 Discharge date: 01/31/21 Admission diagnosis: Status post watchman device placement Hypertension Hyperlipidemia Hypothyroidism Atrial fibrillation Pacemaker placement COPD - not in exacerbation CKD stage III Anemia of chronic disease Hx CAD/AK/CABG/stents HX bovine Aortic valve replacement Discharge diagnosis: Status post watchman device placement Hypertension Hyperlipidemia Hypothyroidism Atrial fibrillation Pacemaker placement COPD - not in exacerbation CKD stage III Anemia of chronic disease Hx CAD/AK/CABG/stents HX bovine Aortic valve replacement Hospital course: Valeria Pollack is a 80 year ol d male with past history of CAD, multiple stents, AK , CABG, pacemaker, hyperlipidemia, pneumonia, CO PD, peptic ulcer disease, CKD stage III, hypothyroidism anemia, atrial fibrill ation. Patient with chronic atrial fibrillation was evaluated by cardiology, found to be a good candidate for watchman device placemen t, device was successfully placed today, patient is seen postoperatively, doing well, no complaints of pain at this time, denies chest pain, palpitations, shortness of breath, c ough, fever, lightheadedness, dizziness, sick contacts, nausea, vomiting, diar jessica. Resume home medications Heart healthy diet Follow blood pressure trend, adjust medications as needed As needed antihypertensive Follow labs, electrolytes Continuous telemetry monitoring, assess for any ST changes, arrhythmias, worsening atrial fibrillation Follow-up with any increased oxygen demand, tach ypnea, tachycardia Chest x-ray in a.m. Diuresis Follow fluid volume status, intake and output, d aily weight DVT prophylaxis/anticoagulation -Xarelto Follow blood sugar trend, adjust medications as needed Sliding scale insulin while inpatient Pain control as needed Antiemetic as needed Assess catheterization site for any signs of ble eding Incentive spirometry Further interventions per patient's clinical cou rse Plan discussed with patient, and family at [facility] 01/31 Potassium level 5.1 Creatinine 1.2/GFR 58.4 Continue Xarelto Pain control as needed Plavix and Brilinta DVT prophylactics Heart healthy diet Discharge planning today when cleared with cardi ologist Further recommendation based on clinical course Plan discussed with patient Med Rec PCP PCP: PCP: Undefined Provider Med Rec Discharge meds: Stop taking the following medications: ISOSORBIDE MONONITRATE SR (IMDUR) 60 MG TAB.SR.2 4H 60 MILLIGRAM ORAL DAILY. TERAZOSIN (HYTRIN) 5 MG CAP 5 MILLIGRAM ORAL DAILY. NITROGLYCERIN (NITROSTAT) 0.4 MG TAB.SL 0.4 MILLIGRAM SUBLINGUAL EVERY 5 MINUTES NEE DED. as needed for CHEST PAIN LISINOPRIL (ZESTRIL) 2.5 MG TAB 2.5 MILLIGRAM ORAL DAILY. amLODIPine (NORVASC) 5 MG TAB 5 MILLIGRAM ORAL DAILY. NIACIN (NIACIN) 500 MG TAB 500 MILLIGRAM ORAL DAILY. Continue taking these medications: RIVAROXABAN (XARELTO) 15 MG TAB 15 MILLIGRAM ORAL DAILY. ATORVASTATIN (LIPITOR) 80 MG TAB 80 MILLIGRAM ORAL BEDTIME. COLESEVELAM (WELCHOL) 625 MG TAB 625 MILLIGRAM ORAL DAILY. GLIMEPIRIDE (AMARYL) 1 MG TAB 1 MILLIGRAM ORAL DAILY. LEVOTHYROXINE (SYNTHROID) 112 MCG TAB 112 MICROGRAM ORAL DAILY. [SE-BLOOM] CAP ORAL DAILY. FUROSEMIDE (LASIX) 20 MG TAB 20 MILLIGRAM ORAL DAILY. traMADol (ULTRAM) 50 MG TAB 50 MILLIGRAM ORAL EVERY 6 HOURS NEEDED. as n eeded for ACUTE PAIN GABAPENTIN (NEURONTIN) 300 MG CAP 300 MILLIGRAM ORAL THREE TIMES A DAY. Sodium Zirconium Cyclosilicate (LOKELMA) 10 GRAM PACKET 10 GRAM ORAL DAILY. DARBEPOETIN CHARISSA IN POLYSORBATE 80 (ARANESP IN P OLYSORBATE) 40 MCG/0.4 ML DISP.SYRIN 40 MICROGRAM SUBCUTANEOUS Q30D MULTIVITAMIN (MULTIPLE VITAMIN) 1 TAB TAB 1 TABLET ORAL DAILY. ASCORBIC ACID (VITAMIN C) 1,000 MG TAB 1,000 MILLIGRAM ORAL DAILY. CHOLECALCIFEROL (VITAMIN D3) (VITAMIN D3) 1,000 UNIT CAP 1,000 UNITS ORAL DAILY. VITAMIN E (VITAMIN E) 400 UNITS CAP 400 UNITS ORAL DAILY. CALCIUM CARBONATE (CALCICARB) 650 MG CALCIUM (1, 625 MG) TAB 650 MILLIGRAM ORAL TWICE DAILY. [ALOE VERA] CAP ORAL DAILY. ZINC ACETATE (GALZIN) 50 MG (ZINC) CAP 50 MILLIGRAM ORAL DAILY. LUTEIN/ZEAXANTHIN (LUTEIN 15 MG) 15 MG-0.7 MG CA P 1 CAPSULE ORAL DAILY. [PRESERAVISION] CAP ORAL DAILY. FERROUS SULFATE (FEOSOL) 325 MG TAB 325 MILLIGRAM ORAL TWICE DAILY. Start taking the following new medications: CLOPIDOGREL (PLAVIX) 75 MG TAB 75 MILLIGRAM ORAL DAILY. Qty = 90 No Refills Objective VS/I O Last Documented: Result Date Time Pulse Ox 98 01/31 1052 B/P 119/64 01/31 1052 B/P Mean 82.0 01/31 1052 O2 Delivery Room air 01/31 1052 Temp 97.5 01/31 1052 Pulse 80 01/31 1052 Resp 16 01/31 1052 24 hour I O ending at 0700: 01/31 0700 01/30 1900 Intake Total 450.00 Output Total Balance 450.00 Intake, IV 250.00 Intake, Oral 200 Number Voids 1 Patient 75 kg Weight Weight Stated/Reported Measurement Method PATIENT WEIGHT: Weight (lb): 165 Weight (oz): 5.55 Weight (kg): 75.000 General appearance: alert, awake, oriented, no r espiratory distress Head/Eyes: atraumatic, EOMI, PERRLA ENT: moist mucosal membranes Neck: no masses or swelling Cardiovascular: irregular rhythm, normal capillary refill, normal heart sounds Respiratory: aerating well, clear to auscultatio n, symmetric expansion Abdomen: non-tender, normal bowel sounds, soft Abdomen quadrants: LLQ normal bowel sounds, LUQ normal markus l sounds, RLQ normal bowel sounds, RUQ normal bowel sounds Extremities: moves all, no edema Musculoskeletal: straight leg raise neg, no CVA tenderness 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: alert, oriented X 3, CNII-XII intact Considered stroke alert: no Skin: no rash, Catheterization site dressing C/D /I Lymphatics: neck normal Psychiatry: normal affect, normal mood Discharge Instructions PCP PCP: PCP: Undefined Provider )( Discharge to: Home/Self Care Discharge Instructions Additional Discharge Routines: PCP Follow-Up, Co nsultant Follow-Up )( Diet: Diabetic )( Activity: As Tolerated Follow-up Appointments PCP follow up: PCP: Undefined Provider PCP follow up timeframe: In 1-2 weeks Special instructions: call to schedule Attending Physician: Attending Physician: Gatito Webb MD Consulting provider 1: Provider 1: Ced Galicia MD Specialty: CardiologyInterventional Consult follow up timeframe: In 1-2 weeks Special instructions: CALL TO SCHEDULE Electronically Signed by Donald Johnson NP on 1 at 1533 RPT #:[id number] END OF REPORT 2021-01-31 11:52:00-00:00 [facility]#:[id number] REPORT STATUS: Signed DATE:01/31/21 TIME: 1152 PATIENT: VALERIA POLLACK UNIT #: [id number] ROOM/BED: [place] [address] : 41 AGE: 80 SEX: M ATTEND: Luis Webb MD ADM AUTHOR: Donlad Johnson HISTORY TEACHER * ALL edits or amendments must be made on the [employer]/computer document * Subjective Chief Complaint: Follow-up status post watchman device pl acement. Patient seen and examined. No acute event noted overnight. Discharge planning for today Objective General VS/I O: Vital Signs: Date Time Temp Pulse Resp B/P B/P Pulse O2 O2 F low FiO2 Mean Ox Delivery Rate 01/31 1052 97.5 80 16 119/64 82.0 98 Room air 01/31 0707 97.9 83 18 125/73 90.2 99 Room air 01/31 0408 85 20 129/71 90.1 96 Room air 01/30 2307 97.5 84 18 148/72 97.0 99 Room air 01/30 2115 97.7 74 16 148/71 96 97 Room air 01/30 2035 97.7 74 18 148/71 97.0 97 Room air 01/30 1215 97.8 82 18 132/65 96 24 hour I O ending at 0700: 01/31 0700 01/30 1900 Intake Total 450.00 Output Total Balance 450.00 Intake, IV 250.00 Intake, Oral 200 Number Voids 1 Patient 75 kg Weight Weight Stated/Reported Measurement Method PATIENT WEIGHT: Weight (lb): 165 Weight (oz): 5.55 Weight (kg): 75.000 Medications: Active Meds + DC'd Last 24 Hrs Amlodipine Besylate 5 MG DAILY PO Colesevelam HCl 625 MG DAILY PO Furosemide 20 MG DAILY PO Isosorbide Mononitrate 60 MG DAILY PO Lisinopril 2.5 MG DAILY PO Rivaroxaban 15 MG DAILY PO Terazosin HCl 5 MG DAILY PO Atorvastatin Calcium 80 MG BEDTIME PO Calcium Carbonate 650 MG BID PO Ferrous Sulfate 325 MG BID PO Gabapentin 300 MG TID PO Ticagrelor 60 MG Q12HR PO Fentanyl Citrate 100 MCG PACU Q10MIN PRN PRN IV (DC) Fentanyl Citrate 50 MCG PACU Q10MIN PRN PRN IV ( DC) Hydralazine HCl 2 MG PACU Q10MIN PRN PRN IV (DC) Hydromorphone HCl 1 MG PACU Q10MIN PRN PRN IV (D C) Hydromorphone HCl 0.5 MG PACU Q5MIN PRN PRN IV ( DC) Insulin Human Lispro 0 PACU ONCE PRN SUBQ (DC) Labetalol HCl 5 MG PACU Q10MIN PRN PRN IV (DC) Meperidine HCl 12.5 MG PACU ONCE PRN IV (DC) Morphine Sulfate 2 MG PACU Q10MIN PRN PRN IV (DC ) Ondansetron HCl 4 MG PACU ONCE PRN IV (DC) Ropivacaine 150 MG ASDIR PRN LOCAL (DC) Tramadol HCl 50 MG PACU ONCE PO (DC) Glycopyrrolate 0 .STK-MED ONE .ROUTE (DC) Neostigmine Methylsulfate 0 .STK-MED ONE .ROUTE (DC) Heparin Sodium 0 .STK-MED ONE .ROUTE (DC) Lidocaine HCl 0 .STK-MED ONE .ROUTE (DC) Sodium Chloride 1,000 ML ONCE ONE IV (DC) Cefazolin Sodium 0 .STK-MED ONE .ROUTE (DC) Heparin Sodium/Sodium Chloride 1,000 ML .STK-MED ONE IV (DC) Bupivacaine HCl 0 .STK-MED ONE .ROUTE (DC) Heparin Sodium/Sodium Chloride 1,000 ML .STK-MED ONE IV (DC) Iopamidol 0 .STK-MED ONE IV (DC) Heparin Sodium 0 .STK-MED ONE .ROUTE (DC) Morphine Sulfate 2 MG Q4H PRN PRN IV Nitroglycerin 0.4 MG Q5M PRN PRN SL Ondansetron HCl 4 MG Q8H PRN PRN PO Sodium Chloride 5 ML ASDIR PRN IV Sodium Chloride 10 ML ASDIR PRN IV Sodium Chloride 250 ML ASDIR PRN IV Tramadol HCl 50 MG Q6H PRN PRN PO Fentanyl Citrate 0 .STK-MED ONE .ROUTE (DC) Phenylephrine HCl 0 .STK-MED ONE I-LETI (DC) Propofol 20 ML .STK-MED ONE IV (DC) Dexamethasone Sodium Phosphate 0 .STK-MED ONE .R OUTE (DC) Lidocaine HCl 0 .STK-MED ONE .ROUTE (DC) Ondansetron HCl 0 .STK-MED ONE .ROUTE (DC) Rocuronium [place] 0 .STK-MED ONE IV (DC) Lidocaine HCl 0 .STK-MED ONE .ROUTE (DC) Fentanyl Citrate 100 MCG PACU Q10MIN PRN PRN IV (DC) Fentanyl Citrate 50 MCG PACU Q10MIN PRN PRN IV ( DC) Hydralazine HCl 2 MG PACU Q10MIN PRN PRN IV (DC) Hydromorphone HCl 1 MG PACU Q10MIN PRN PRN IV (D C) Hydromorphone HCl 0.5 MG PACU Q5MIN PRN PRN IV ( DC) Insulin Human Lispro 0 PACU ONCE PRN SUBQ (DC) Labetalol HCl 5 MG PACU Q10MIN PRN PRN IV (DC) Meperidine HCl 12.5 MG PACU ONCE PRN IV (DC) Morphine Sulfate 2 MG PACU Q10MIN PRN PRN IV (DC ) Ondansetron HCl 4 MG PACU ONCE PRN IV (DC) Ropivacaine 150 MG ASDIR PRN LOCAL (DC) Tramadol HCl 50 MG PACU ONCE PO (DC) Lidocaine HCl 2 ML PREOP LOCAL Sodium Chloride 1,000 ML .Q24H IV Lactated Ringer's 1,000 ML PREOP ONCALL IV Lidocaine HCl 2 ML PREOP ONCALL LOCAL Lidocaine HCl 2 ML PREOP ONCALL LOCAL Sodium Chloride 500 ML PREOP ONCALL IV Sodium Chloride 500 ML PREOP ONCALL IV Sodium Chloride 1,000 ML PREOP ONCALL IV Sodium Chloride 5 ML ASDIR PRN IV Sodium Chloride 10 ML ASDIR PRN IV Sodium Chloride 250 ML ASDIR PRN IV Nutrition assessment: The data set between the solid lines has been im ported from the dietitian's assessment. Any exceptions have been noted under Provider comments. BMI Calculated: 25.1 Nutrition related diagnosis: Nutrition diagnosis details: Nutrition problem: Nutrition etiology: Nutrition signs and symptoms: Nutrition prescription: Dietitian name: Assessment completed: Provider comments on imported dietitian assessme nt: Physical Exam General appearance: alert, awake, oriented Head/Eyes: atraumatic, EOMI, PERRLA ENT: moist mucosal membranes Neck: no masses or swelling Cardiovascular: irregular rhythm, normal capillary refill, normal heart sounds Abdomen: non-tender, normal bowel sounds, soft Extremities: moves all, no edema Musculoskeletal: straight leg raise neg, no CVA tenderness 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: alert, oriented X 3, CNII-XII intact Considered stroke alert: no Skin: no rash, Catheterization site dressing C/D /I Lymphatics: neck normal Psychiatry: normal affect, normal mood Results Findings/Data: Laboratory Tests 01/31 01/30 0415 1709 Chemistry Sodium (134 - 147 mEq/L) 140 Potassium (3.4 - 5.0 mEq/L) 5.1 H Chloride (100 - 108 mEq/L) 111 H Carbon Dioxide (21 - 33 mEq/l) 22 Anion Gap (0 - 20) 12 BUN (7 - 18 mg/dL) 16 Creatinine (0.6 - 1.3 mg/dL) 1.2 Glomerular Filtr Rate (70 - 80) 58.4 L Glucose (70 - 110 mg/dL) 204 H POC Glucose (70 - 110 MG/DL) 102 Calcium (8.0 - 10.5 mg/dL) 8.7 Total Bilirubin (0.0 - 1.0 mg/dL) 0.60 AST (15 - 37 IUnit/L) 29 ALT (30 - 65 IUnit/L) 25 L Total Alk Phosphatase (20 - 125 IUnit/L) 228 H Total Protein (6.4 - 8.2 g/dL) 6.0 L Albumin (3.4 - 5.0 g/dL) 3.10 L Laboratory Tests 01/30 01/30 1639 1628 Coagulation Activated Coag Time (74 - 137 SEC) 252 H 208 H Laboratory Tests 01/31 0415 Hematology WBC (4.5 - 11.0 x10 3/uL) 4.7 RBC (4.00 - 5.60 x10 6/uL) 2.56 L Hgb (12.5 - 16.9 g/dL) 7.8 L Hct (37.5 - 50.7 %) 26.4 L MCV (81.0 - 99.0 fL) 103.1 H MCH (27.0 - 33.0 pg) 30.5 MCHC (33.0 - 37.0 g/dL) 29.5 L RDW (11.5 - 14.5 %) 17.9 H Plt Count (150 - 400 x10 3/uL) 183 MPV (7.0 - 9.0 fL) 11.1 H Neut % (Auto) (56.0 - 77.0 %) 84.2 H Lymph % (Auto) (14.0 - 32.0 %) 9.0 L Porter % (Auto) (4.8 - 9.0 %) 6.2 Eos % (Auto) (0.3 - 3.7 %) 0.0 L Baso % (Auto) (0.0 - 2.0 %) 0.2 Neut # (Auto) (2.0 - 7.6 x10 3/uL) 3.92 Lymph # (Auto) (1.0 - 3.8 x10 3/uL) 0.42 L Porter # (Auto) (0.1 - 0.8 x10 3/uL) 0.29 Eos # (Auto) (0.0 - 0.2 x10 3/uL) 0.00 Baso # (Auto) (0.0 - 0.2 x10 3/uL) 0.01 Abs Immat Gran (auto) (0.00 - 0.03 x10 3/uL) 0. 02 Add Manual Diff NO Immature Gran % (0.0 - 2.0 %) 0.4 Nucleated RBC % (0 - 0 %) 0.0 Nucleated RBCs # (Man) (0.0 - 0.1 x10 3/uL) 0.0 0 Radiology data: Recent Impressions: RADIOLOGY - XR CHEST 1 V 01/31 5545 Report Impression - Status: SIGNED Entered: 01/31/2021 0734 IMPRESSION: 1. No visible procedural complication. SL: [id number] Impression By: Sandor2 - Rodney cruz M.D. Diagnosis, Assessment Plan Free Text DxA P Notes Free text DxA P notes: Status post watchman device placement Hypertension Hyperlipidemia Hypothyroidism Atrial fibrillation Pacemaker placement COPD - not in exacerbation CKD stage III Anemia of chronic disease Hx CAD/AK/CABG/stents HX bovine Aortic valve replacement PLAN: Resume home medications Heart healthy diet Follow blood pressure trend, adjust medications as needed As needed antihypertensive Follow labs, electrolytes Continuous telemetry monitoring, assess for any ST changes, arrhythmias, worsening atrial fibrillation Follow-up with any increased oxygen demand, tach ypnea, tachycardia Chest x-ray in a.m. Diuresis Follow fluid volume status, intake and output, d aily weight DVT prophylaxis/anticoagulation -Xarelto Follow blood sugar trend, adjust medications as needed Sliding scale insulin while inpatient Pain control as needed Antiemetic as needed Assess catheterization site for any signs of ble eding Incentive spirometry Further interventions per patient's clinical cou rse Plan discussed with patient, and family at [facility] 01/31 Potassium level 5.1 Creatinine 1.2/GFR 58.4 Continue Xarelto Pain control as needed Plavix and Brilinta DVT prophylactics Heart healthy diet Discharge planning today when cleared with cardi ologist Further recommendation based on clinical course Plan discussed with patient Electronically Signed by Donald Johnson HISTORY TEACHER on 1 at 1530 RPT #:[id number] END OF REPORT 2021-01-31 11:06:00-00:00 [id number] [place] [address] PATIENT NAME: VALERIA POLLACK ADMIT DATE: 01/30/21 ACCOUNT NO: [id number] ROOM NO: [id number] AGE: 80 REPORT TYPE: eECHOCARDIOGRAM REPORT SEX: M ADMITTING PHYSICIAN:Gatito Webb MD ATTENDING PHYSICIAN:Gatito Webb MD *[facility]* [address] [place] [address] Limited Transthoracic Echocardiogram Patient: Valeria Pollack Study Date: 01/31/2021 BP: 148 / 72 Location: [facility] URN: [id number] : 1940 Age: 80 Height: 68 in / 172.7 cm Gender: M Weight: 164 .7 lb / 74.8 kg BMI/BSA: 25.1 kg/m 2 / 1.9 m 2 *Ordering Physician: * Sarah Fritz *Interpreting Physician: * Red Fatima MD *Timber Feller: * Yaquelin Dsouza Indications: POST WATCHAMAN. Study data: Transthoracic echocardiogram, limite d study. Procedure: Transthoracic echocardiography was performed. Im age quality was adequate. Limited 2D and limited spectral Dopple r. Location: Bedside. Patient status: Inpatient. Patient room number: 3340. Study status: Routine. Findings Left ventricle: The cavity size is normal. Wall thickness is normal. Systolic function is moderately reduced. The est imated ejection fraction is 35-39%. Left ventricular diastolic function p arameters are normal. Left atrium: The atrium is dilated. Pericardium: There is no pericardial effusion. PATIENT NAME: VALERIA POLLACK 06 Measurements Left ventricle Value Ref STEPHANIE, LAX 5.3 cm 4.2 - 5.8 ESD, LAX 4.3 cm 2.5 - 4.0 ESD/bsa, LAX 2.3 cm/m 2 1.3 - 2.1 FS, LAX 19 % 25 - 43 ESD/bsa major ax, A4C 3.7 cm/m 2 --------- STEPHANIE/bsa minor ax, A4C 3.7 cm/m 2 --------- STEPHANIE major ax, A2C 7.8 cm --------- STEPHANIE/bsa major ax, A2C 4.1 cm/m 2 --------- PW, ED 1.1 cm 0.6 - 1.0 IVS/PW, ED 1.01 --------- EF 39 % 52 - 72 LVOT Value Ref Diam, S 2.09 cm --------- Area 3.4 cm 2 --------- Ventricular septum Value Ref IVS, ED 1.1 cm 0.6 - 1.0 Right ventricle Value Ref STEPHANIE, LAX 2.6 cm --------- Left atrium Value Ref Vol/bsa, ES, 1-p A4C 87 ml/m 2 12 - 37 Vol/bsa, ES, A/L 89 ml/m 2 16 - 34 AP dim, ES MM 5.4 cm 3.0 - 4.0 LA/Ao root ratio, MM 1.66 --------- Aortic valve Value Ref Leaflet sep, MM 1.59 cm --------- Mitral valve Value Ref E-septal separation 1.5 cm --------- E-F slope 0.1 m/sec --------- Aortic root Value Ref Root diam, ED MM 3.25 cm --------- Conclusions Summary: 1. Left ventricle: The cavity size is normal. Wa ll thickness is normal. Systolic function is moderately reduced. The es timated ejection fraction is 35-39%. Left ventricular diastolic function parameters are normal. 2. Left atrium: The atrium is dilated. 3. Pericardium, extracardiac: There is no perica rdial effusion. PATIENT NAME: VALERIA POLLACK 06 Prepared and electronically signed by Red Fatima MD 01/31/2021 11:06 Electronically Signed by Red Fatima MD on 0 01/31/21 at 1107 PATIENT NAME: VALERIA POLLACK 2021-01-31 06:47:00-00:00 [id number] [place] [address] PATIENT NAME: VALERIA POLLACK ADMIT DATE: 01/30/21 ACCOUNT NO: [id number] ROOM NO: G.3340 AGE: 80 REPORT TYPE: eELECTROCARDIOGRAM REPORT SEX: M ADMITTING PHYSICIAN:Gatito Webb MD ATTENDING PHYSICIAN:Gatito Webb MD Order: [id number] Test Reason : POST WATCHMAN Test Date/Time Stamp: ThuJan 31 2021 06:47:18 Blood Pressure : / mmHG Vent. Rate : 068 BPM Atrial Rate : 057 BPM P-R Int : 000 ms QRS Dur : 108 ms QT Int : 402 ms P-R-T Axes : 000 008 049 degree s QTc Int : 427 ms Atrial fibrillation with occasional ventricular- paced complexes Low voltage QRS Cannot rule out Anterior infarct , age undetermi anthony Baseline wander Abnormal ECG Confirmed by VICKI KWONG MD ([id number]) on 02/01/20 21 9:09:06 AM Referred By: Ced Galicia Confirmed by:VICKI ESPOSITO MD at 0909 PATIENT NAME: VALERIA POLLACK 2021-01-30 18:26:00-00:00 [facility] ([facility]) Hospitalist History Physical REPORT#:[id number] REPORT STATUS: Signed DATE:01/30/21 TIME: 182 PATIENT: VALERIA POLLACK UNIT #: [id number] ROOM/BED: [facility]7-1 : 41 AGE: 80 SEX: M ATTEND: Luis Webb MD ADM AUTHOR: Jed Ryan NP * ALL edits or amendments must be made on the [employer]/computer document * History of Present Illness HPI Chief complaint: S/P watchman device placement PCP: PCP: Undefined Provider HPI: Valeria Pollack is a 80 year ol d male with past history of CAD, multiple stents, [place] , CABG, pacemaker, hyperlipidemia, pneumonia, CO PD, peptic ulcer disease, CKD stage III, hypothyroidism anemia, atrial fibrill ation. Patient with chronic atrial fibrillation was evaluated by cardiology, found to be a good candidate for watchman device placemen t, device was successfully placed today, patient is seen postoperatively, doing well, no complaints of pain at this time, denies chest pain, palpitations, shortness of breath, c ough, fever, lightheadedness, dizziness, sick contacts, nausea, vomiting, diar jessica. History Past Medical Surgical Hx Additional medical history: Shingles Macular degeneration Additional surgical history: Aortic valve replacement with a bovine valve Bone marrow biopsy Social History Alcohol use: Denies EtOH use Drug use: Denies recreational drugs Smoking status: Smoking status for patients 13 years old or old er: Never Smoker Medication/Allergy-Vaccine Hx Allergies: Coded Allergies: acetaminophen (From TETRA) (Intermediate, RASH 0 01/31/21) phenylpropanolamine (From TETRA) (Intermediate, RASH 01/31/21) Review of Systems Constitutional: Denies: fever, malaise. Skin: Denies: rash. Respiratory: Denies: pneumonia, SOB. Cardiovascular: Denies: chest pain, edema. All systems rev neg: except as noted Physical Exam VS/I O: Vital Signs Date Temp Pulse Resp B/P B/P Mean Pulse Ox FiO2 01/30 97.5-97.8 74-84 16-18 132-148/65-72 96-97 .0 96-99 Last Documented: Result Date Time Pulse Ox 99 01/30 230 B/P 148/72 01/30 2307 B/P Mean 97.0 01/30 2307 O2 Delivery Room air 01/30 2307 Temp 97.5 01/30 2307 Pulse 84 01/30 2307 Resp 18 01/30 2307 24 hour I O ending at 0700: 01/31 0700 01/30 1900 Intake Total Output Total Balance Patient 75 kg Weight Weight Stated/Reported Measurement Method Patient Weight and BMI Weight (kg): 75.000 BMI: 25.1 General appearance: alert, awake, oriented, no r espiratory distress Head/Eyes: atraumatic, EOMI, PERRLA ENT: moist mucosal membranes Neck: no masses or swelling Cardiovascular: irregular rhythm, normal capillary refill, normal heart sounds Respiratory: aerating well, clear to auscultatio n, symmetric expansion Abdomen: non-tender, normal bowel sounds, soft Abdomen quadrants: LLQ normal bowel sounds, LUQ normal markus l sounds, RLQ normal bowel sounds, RUQ normal bowel sounds Extremities: moves all, no edema Musculoskeletal: straight leg raise neg, no CVA tenderness 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: alert, oriented X 3, CNII-XII intact Considered stroke alert: no Skin: no rash, Catheterization site dressing C/D /I Lymphatics: neck normal Psychiatry: normal affect, normal mood Results Findings/Data: Laboratory Tests: 01/30 01/30 01/30 1709 1639 1628 Chemistry POC Glucose (70 - 110 MG/DL) 102 Coagulation Activated Coag Time (74 - 137 SEC) 252 H 208 H Diagnosis, Assessment Plan Free Text A P: Status post watchman device placement Hypertension Hyperlipidemia Hypothyroidism Atrial fibrillation Pacemaker placement COPD - not in exacerbation CKD stage III Anemia of chronic disease Hx CAD/AK/CABG/stents HX bovine Aortic valve replacement PLAN: Resume home medications Heart healthy diet Follow blood pressure trend, adjust medications as needed As needed antihypertensive Follow labs, electrolytes Continuous telemetry monitoring, assess for any ST changes, arrhythmias, worsening atrial fibrillation Follow-up with any increased oxygen demand, tach ypnea, tachycardia Chest x-ray in a.m. Diuresis Follow fluid volume status, intake and output, d aily weight DVT prophylaxis/anticoagulation -Xarelto Follow blood sugar trend, adjust medications as needed Sliding scale insulin while inpatient Pain control as needed Antiemetic as needed Assess catheterization site for any signs of ble eding Incentive spirometry Further interventions per patient's clinical cou rse Plan discussed with patient, and family at [facility] Electronically Signed by Jed Ryan NP on 10/13 at 0110 at 1141 RPT #:[id number] END OF REPORT 2021-01-30 18:26:00-00:00 [facility] ([facility] Hospitalist History Physical REPORT#:[id number] REPORT STATUS: Signed DATE:01/30/21 TIME: 1825 PATIENT: VALERIA POLLACK UNIT #: [id number] ROOM/BED: [place] [address] : 41 AGE: 80 SEX: M ATTEND: Johnna Webb MD ADM AUTHOR: Jed Ryan NP * ALL edits or amendments must be made on the [employer] document * History of Present Illness HPI Chief complaint: S/P watchman device placement PCP: PCP: Undefined Provider HPI: Valeria Pollack is a 80 year ol d male with past history of CAD, multiple stents, [place] , CABG, pacemaker, hyperlipidemia, pneumonia, CO PD, peptic ulcer disease, CKD stage III, hypothyroidism anemia, atrial fibrill ation. Patient with chronic atrial fibrillation was evaluated by cardiology, found to be a good candidate for watchman device placemen t, device was successfully placed today, patient is seen postoperatively, doing well, no complaints of pain at this time, denies chest pain, palpitations, shortness of breath, c ough, fever, lightheadedness, dizziness, sick contacts, nausea, vomiting, diar jessica. History Past Medical Surgical Hx Additional medical history: Shingles Macular degeneration Additional surgical history: Aortic valve replacement with a bovine valve Bone marrow biopsy Social History Alcohol use: Denies EtOH use Drug use: Denies recreational drugs Smoking status: Smoking status for patients 13 years old or old er: Never Smoker Medication/Allergy-Vaccine Hx Allergies: Coded Allergies: acetaminophen (From TETRA) (Intermediate, RASH 0 01/31/21) phenylpropanolamine (From TETRA) (Intermediate, RASH 01/31/21) Review of Systems Constitutional: Denies: fever, malaise. Skin: Denies: rash. Respiratory: Denies: pneumonia, SOB. Cardiovascular: Denies: chest pain, edema. All systems rev neg: except as noted Physical Exam VS/I O: Vital Signs Date Temp Pulse Resp B/P B/P Mean Pulse Ox FiO2 01/30 97.5-97.8 74-84 16-18 132-148/65-72 96-97 .0 96-99 Last Documented: Result Date Time Pulse Ox 99 01/30 2307 B/P 148/72 01/30 230 B/P Mean 97.0 01/30 2307 O2 Delivery Room air 01/30 2307 Temp 97.5 01/30 230 Pulse 84 01/30 2307 Resp 18 01/30 2307 24 hour I O ending at 0700: 01/31 0700 01/30 1900 Intake Total Output Total Balance Patient 75 kg Weight Weight Stated/Reported Measurement Method Patient Weight and BMI Weight (kg): 75.000 BMI: 25.1 General appearance: alert, awake, oriented, no r espiratory distress Head/Eyes: atraumatic, EOMI, PERRLA ENT: moist mucosal membranes Neck: no masses or swelling Cardiovascular: irregular rhythm, normal capillary refill, normal heart sounds Respiratory: aerating well, clear to auscultatio n, symmetric expansion Abdomen: non-tender, normal bowel sounds, soft Abdomen quadrants: LLQ normal bowel sounds, LUQ normal markus l sounds, RLQ normal bowel sounds, RUQ normal bowel sounds Extremities: moves all, no edema Musculoskeletal: straight leg raise neg, no CVA tenderness 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: alert, oriented X 3, CNII-XII intact Considered stroke alert: no Skin: no rash, Catheterization site dressing C/D /I Lymphatics: neck normal Psychiatry: normal affect, normal mood Results Findings/Data: Laboratory Tests: 01/30 01/30 01/30 1709 1639 1628 Chemistry POC Glucose (70 - 110 MG/DL) 102 Coagulation Activated Coag Time (74 - 137 SEC) 252 H 208 H Diagnosis, Assessment Plan Free Text A P: Status post watchman device placement Hypertension Hyperlipidemia Hypothyroidism Atrial fibrillation Pacemaker placement COPD - not in exacerbation CKD stage III Anemia of chronic disease Hx CAD/AK/CABG/stents HX bovine Aortic valve replacement PLAN: Resume home medications Heart healthy diet Follow blood pressure trend, adjust medications as needed As needed antihypertensive Follow labs, electrolytes Continuous telemetry monitoring, assess for any ST changes, arrhythmias, worsening atrial fibrillation Follow-up with any increased oxygen demand, tach ypnea, tachycardia Chest x-ray in a.m. Diuresis Follow fluid volume status, intake and output, d aily weight DVT prophylaxis/anticoagulation -Xarelto Follow blood sugar trend, adjust medications as needed Sliding scale insulin while inpatient Pain control as needed Antiemetic as needed Assess catheterization site for any signs of ble eding Incentive spirometry Further interventions per patient's clinical cou rse Plan discussed with patient, and family at [facility] Electronically Signed by Jed Ryan NP on 10/13 at 0110 RPT #:[id number] END OF REPORT 2021-01-30 17:10:00-00:00 [id number] [place] [address] PATIENT NAME: VALERIA POLLACK ADMIT DATE: 01/30/21 ACCOUNT NO: [id number] ROOM NO: [id number] AGE: 81 REPORT TYPE: eELECTROCARDIOGRAM REPORT SEX: M ADMITTING PHYSICIAN:Gatito Webb MD ATTENDING PHYSICIAN:Gatito Webb MD Order: [id number] Test Reason : SP WATCHMAN Test Date/Time Stamp: ThuJan 30 2021 17:10:26 Blood Pressure : / mmHG Vent. Rate : 084 BPM Atrial Rate : 092 BPM P-R Int : 000 ms QRS Dur : 108 ms QT Int : 400 ms P-R-T Axes : 000 098 077 degree s QTc Int : 472 ms Atrial fibrillation Low voltage QRS Cannot rule out Anterior infarct , age undetermi anthony Abnormal ECG When compared with ECG of 28-JAN-2021 12:02, Significant changes have occurred Confirmed by MD BENEDICTO, RED ([id number]) on 021 11:59:48 PM Referred By: Gatito Webb Confirmed by:RED JO MD Electronically Signed by Red Fatima MD on 0 02/25/21 at 0000 PATIENT NAME: VALERIA POLLACK 06 2021-01-30 16:47:00-00:00 [id number] [place] [address] PATIENT NAME: VALERIA POLLACK ADMIT DATE: 01/30/21 ACCOUNT NO: [id number] ROOM NO: G.3340 AGE: 80 REPORT TYPE: OPERATIVE REPORT SEX: M ADMITTING PHYSICIAN:Gatito Webb MD ATTENDING PHYSICIAN:Gatito Webb MD OPERATION DATE: 01/30/2021 PREOPERATIVE DIAGNOSIS: POSTOPERATIVE DIAGNOSIS: PROCEDURE PERFORMED: Left atrial appendage closu re using a 31-mm Watchman FLX closure device. INDICATIONS: Atrial fibrilla tion with high CHADS-VASc score, risk of stroke and severe anemia, requiring transfusion, intolerant of anticoagulation. PRIMARY OPERATING SURGEON: Ced Galicia MD GUNNER'S MATE G: ANESTHESIA: COMPLICATIONS: None. BLEEDING: Less than 20 mL, accessed right femora l vein. A 16-Moroccan closed with a [id number] suture. DESCRIPTION IN DETAIL: After risks, bene fits, and alternatives were explained, the patient agreed to proceed and signed informe d consent. The patient was brought into the cardiac catheterization laboratory, prepped and draped in the usual sterile fashion. General anesthesia was ap plied by anesthesia team. JEANE probe was inserted and preprocedure JEANE measurem ents were obtained and the ostium maximum diameter was 22 mm. We then took a micropuncture kit, accessed right femoral vein with ultrasound guidance and placed an 8-Moroccan sheath and subsequently upgraded to a 16-Moroccan [employer] Intern k sheath, gave partial dose of heparin and then took SL1 sheath into the SVC over the w lon and then with a needle through the sheath we descen ded into the interatrial septum with the guidance of JEANE and fluoroscopy and then in the low mid posi tion transseptal puncture was done successfully and we advanced the SL1 sheath into the left atrium. LA pressure was measured at 17 mmHg. Then, we took a ProTrack wire into the left atrium and exchanged the SL0 sheath for the [employer] hman double curve sheath and then took a pigtail into the left atrium through the Watchman sheath and navigated into left atrial appendage and appendage angiogram was done and then the widest diameter of the ostium was 22 mm, dec ided for a 31 Watchman FLX device, it will be suitable for closure. We took the device, prepped in the usual sterile fashion and then also flus hed and after removing the pigtail and bleeding back from the sheat h, the Watchman delivery system was introduced into PATIENT NAME: VALERIA POLLACK 306 the left atrial appendage an d then we deployed it under the guidance of JEANE and fluoroscopy. Then, we evaluated PASS criteria in cluding leak. There was no leak, tug was satisfactory and there was auto-tu gging. The position was satisfactory and compression was ranging from 25 to 28%. All four PASS criteria were met, the device was released in position an d then Watchman sheath was removed and the Cook sheath was removed and we used a [id number]-[id number] suture at the access site with good hemostasis. Th e patient tolerated the procedure very well, was sent to recovery in stable condition. CONCLUSION: Successful left atrial appendage closure using a 31-mm Watchman FLX closure device. PLAN: Admit overnight. Echo and chest x-ray antonia rrow and a JEANE in 45 days. Meanwhile, continue anticoagulation after the TE E is done. Dictated By: Ced Galicia MD WT: OP:NAKUL/ARIADNA/FADY Conf#: [id number]/DID#: [id number] Authenticated by Ced Galicia MD On 01/31/2021 05:39:35 AM Electronically Signed by Ced Galicia MD on at 0539 PATIENT NAME: VALERIA POLLACK 2021-01-28 17:49:00-00:00 [facility]) Consultation Note - Brief REPORT#:[id number] REPORT STATUS: Signed DATE:01/28/21 TIME: 1748 PATIENT: VALERIA POLLACK UNIT #: [id number] ROOM/BED: : 41 AGE: 80 SEX: M ATTEND: Cullen Galicia MD ADM AUTHOR: Bony Lacey MD * ALL edits or amendments must be made on the [employer]/computer document * History of Present Illness HPI Requesting Clinician: Ced Galicia Reason for consult: Watchman shared decision Chief complaint: Patient presented for elective outpatien t preop evaluation and watchman shared decision History of present illness: 80-year-old man with past medical history of cor onary disease with multiple stent placement, myocardial infarction, CABG, status post pacemaker implantation , dyslipidemia, pneumonia, C OPD, peptic ulcer disease, and anemia due to GI loss presented for preop evaluati on for watchman insertion and shared decision making for watchman. Currently denies any complaints. 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 Additional medical history: Shingles Macular degeneration Past surgical history: Reports: CABG, Hernia repair, Pacemaker, Eye billy naeem (Cataract surgery), Knee procedure. Additional surgical history: Aortic valve replacement with a bovine valve Bone marrow biopsy Alcohol use: Denies EtOH use Drug use: Denies recreational drugs Smoking status: Smoking status for patients 13 years old or old er: Never Smoker Medications: Home Medications: Medication Dose/Rte/Freq Days Qty Entered Last Max Daily Dose Reviewed RIVAROXABAN (XARELTO) 15 MG PO DAILY 01/28/21 Strength: 15 MG TAB 1333 TICAGRELOR (BRILINTA) 60 MG PO Q12HR 01/28/21 Strength: 60 MG TAB 1334 ATORVASTATIN (LIPITOR) 80 MG PO BEDTIME Strength: 80 MG TAB 1335 COLESEVELAM (WELCHOL) 625 MG PO DAILY 01/28/21 Strength: 625 MG TAB 1336 ISOSORBIDE 60 MG PO DAILY 01/28/21 MONONITRATE SR 1337 (IMDUR) Strength: 60 MG TAB.SR.24H TERAZOSIN (HYTRIN) 5 MG PO DAILY 01/28/21 Strength: 5 MG CAP 1337 NITROGLYCERIN 0.4 MG SL 01/28/21 (NITROSTAT) Q5M PRN PRN CHEST 1338 Strength: 0.4 MG TAB.SL PAIN LISINOPRIL (ZESTRIL) 2.5 MG PO DAILY 01/28/21 Strength: 2.5 MG TAB 1338 amLODIPine (NORVASC) 5 MG PO DAILY 01/28/21 Strength: 5 MG TAB 1338 GLIMEPIRIDE (AMARYL) 1 MG PO DAILY 01/28/21 Strength: 1 MG TAB 1339 LEVOTHYROXINE 112 MCG PO DAILY 01/28/21 (SYNTHROID) 1339 Strength: 112 MCG TAB [SE-BLOOM] 01/28/21 Strength: CAP 1340 FUROSEMIDE (LASIX) 20 MG PO DAILY 01/28/21 Strength: 20 MG TAB 1341 traMADol (ULTRAM) 50 MG PO 01/28/21 Strength: 50 MG TAB Q6H PRN PRN ACUTE 1341 PAIN GABAPENTIN (NEURONTIN) 300 MG PO TID 01/28/21 Strength: 300 MG CAP 1341 Sodium Zirconium 10 GM PO DAILY 01/28/21 Cyclosilicate 1342 (LOKELMA) Strength: 10 GRAM PACKET DARBEPOETIN CHARISSA IN 40 MCG SUBQ Q30D 01/28/21 POLYSORBATE 80 1343 (ARANESP IN POLYSORBATE) Strength: 40 MCG/0.4 ML DISP.SYRIN NIACIN 500 MG PO DAILY 01/28/21 Strength: 500 MG TAB 1343 MULTIVITAMIN 1 TAB PO DAILY 01/28/21 (MULTIPLE VITAMIN) 1344 Strength: 1 TAB TAB ASCORBIC ACID (VITAMIN C) 1,000 MG PO DAILY Strength: 1,000 MG TAB 1344 CHOLECALCIFEROL 1,000 UNITS PO DAILY 01/28/21 (VITAMIN D3) 1344 (VITAMIN D3) Strength: 1,000 UNIT CAP VITAMIN E 400 UNITS PO DAILY 01/28/21 Strength: 400 UNITS CAP 1345 CALCIUM CARBONATE 650 MG PO BID 01/28/21 (CALCICARB) 1345 Strength: 650 MG CALCIUM (1,625 MG) TAB [ALOE VERA] 01/28/21 Strength: CAP 1346 ZINC ACETATE (GALZIN) 50 MG PO DAILY 01/28/21 Strength: 50 MG (ZINC) 1346 CAP LUTEIN/ZEAXANTHIN 1 CAP PO DAILY 01/28/21 (LUTEIN 15 MG) 1347 Strength: 15 MG-0.7 MG CAP [PRESERAVISION] 01/28/21 Strength: CAP 1348 FERROUS SULFATE 325 MG PO BID 01/28/21 (FEOSOL) 1348 Strength: 325 MG TAB Allergies: Coded Allergies: acetaminophen (From TETRA) (Intermediate, RASH 0 01/28/21) phenylpropanolamine (From TETRA) (Intermediate, RASH 01/28/21) Brief Consult Note Physical Exam Vitals: Blood pressure 127/90, pulse 84, respiratory rat e is 16 General appearance: alert, awake, oriented HEENT: mucosal membranes moist, pupils reactive to light, sclera clear Neck: full range of motion, no bruit/NL carotids , no JVD Cardiovascular: regular rate rhythm, normal hear t sounds Respiratory: clear to auscultation, no d istress, no tenderness, aerating well, symmetric expansion Abdomen: non-tender, no guarding, no rebound, no distention, no mass/ organomegaly, no pulsatile mass, no hernia 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 SL: [id number] Impression By: [email or web address] - Kaylynn Squires Laboratory Tests 01/28/21 1205: [Embedded Image Not Available] Free Text A P: 80-year-old man with significant past medical hi story of coronary disease, atrial fibrillation, diabetes and hypert ension presenting for preop evaluation and watchman shared decision making. [id number] score - 4 Adjusted stroke rate 4% a year HAS-BLED score - 4 Bleeding rate 8.7% a year [employer] questionnaire was done. Patient meets criteria for watchman insertion. at 1806 RPT #:[id number] END OF REPORT 2021-01-28 12:02:00-00:00 [id number] [place] [address] PATIENT NAME: VALERIA POLLACK ADMIT DATE: ACCOUNT NO: [id number] ROOM NO: AGE: 80 REPORT TYPE: eELECTROCARDIOGRAM REPORT SEX: M ADMITTING PHYSICIAN: ATTENDING PHYSICIAN:Ced Galicia MD Order: [id number] Test Reason : PREOP Test Date/Time Stamp: ThuJan 28 2021 12:02:03 Blood Pressure : / mmHG Vent. Rate : 081 BPM Atrial Rate : 080 BPM P-R Int : 000 ms QRS Dur : 102 ms QT Int : 394 ms P-R-T Axes : 000 132 022 degree s QTc Int : 457 ms Atrial fibrillation Left posterior fascicular block Abnormal ECG PRE_OP Confirmed by VICKI KWONG MD ([id number]) on 12:51:21 PM Referred By: Ced Galicia Confirmed by:VICKI ESPOSITO MD at 1251 PATIENT NAME: VALERIA POLLACK 06
[2023-06-24 15:41] LABS: Absolute Lymphocytes (CBC) 0.5 K/uL (0.7-4.9); Hematocrit 34.5 % (39.6-49.0); Lymphocytes % 7.5 % (15.3-44.8); MCV 95.9 fL (80-100); MPV 9.1 fL (7.6-11.3); Platelets 169 thou/uL (152-406)
[2023-06-24 15:45] LABS: Protime INR 1.58
--- NOTE | 2023-06-24 15:57 | EDPHYS ---
Physician Documentation [facility] Name: Nirmala Ruiz Age: 83 yrs Sex: Male : 1940 Arrival Date: 06/24/2023 Time: 14:57 Bed 3 Private MD: ED Physician Ilya Bowens HPI: 06/24 15:10 This 83 yrs old Male presents to ER via Wheelchair with complaints of Shortness Of rn Breath. 15:10 The patient has shortness of breath at rest, with light activity. Onset: The rn symptoms/episode began/occurred 1 week(s) ago. Duration: The symptoms are continuous. The patient's shortness of breath is aggravated by exertion, light activity, supine position, is alleviated by rest. Associated signs and symptoms: Pertinent negatives: chest pain, fever, hemoptysis. Severity of symptoms: At their worst the symptoms were moderate in the emergency department the symptoms are unchanged. The patient has experienced similar episodes in the past. The patient has been recently seen by a physician:. Sent in by Dr. Galicia for CHF exacerbation, dyspnea. SOB that is worse over the last week. Had outpt ECHO that showed drop from normal to 20%. No fever. NO trauma. NO chest pain. Feels ok at rest. . Historical: - Allergies: 15:02 TETRACYCLINES; ll1 15:02 adhesive tape; ll1 - PMHx: 15:02 Hypertensive disorder; Hypercholesterolemia; Hypothyroidism; ll1 - Immunization history:: Client reports receiving the 2nd dose of the Covid vaccine. - Social history:: Smoking status: Patient denies any tobacco usage or history of. - Family history:: not pertinent. - Hospitalizations: : No recent hospitalization is reported. ROS: 15:10 Constitutional: Negative for fever, chills, and weight loss, Cardiovascular: Negative rn for chest pain, palpitations Respiratory: Negative for wheezing, and pleuritic chest pain, Abdomen/GI: Negative for abdominal pain, nausea, vomiting, diarrhea, and constipation, MS/Extremity: Negative for injury and deformity, Skin: Negative for injury, rash, and discoloration, Neuro: Negative for headache, weakness, numbness, tingling, and seizure. Exam: 15:10 Constitutional: This is a well developed, well nourished patient who is awake, alert, rn and in no acute distress. Head/Face: Normocephalic, atraumatic. ENT: dry MM Cardiovascular: Bradycardic, regular Respiratory: Mild tachypnea, no retractions Abdomen/GI: Soft, non-tender Skin: Warm, dry MS/ Extremity: Pulses equal, no cyanosis. 2+ edema bilateral lower ext Neuro: Awake and alert, GCS 15 15:20 ECG was reviewed by the Attending Physician. rn Vital Signs: 15:02 BP 152 / 71; Pulse 51; Resp 18; Temp 97.5; Pulse Ox 95% on R/A; Weight 79.38 kg; Height ll1 5 ft. 8 in. ; Pain 0/10; 17:00 BP 152 / 68; Pulse 50; Resp 24; Pulse Ox 98% ; bp 19:36 BP 151 / 95; Pulse 50; Resp 18; Pulse Ox 98% on R/A; kd3 15:02 Body Mass Index 26.61 (79.38 kg, 172.72 cm) ll1 15:02 Pain Scale: Adult ll1 MDM: 15:06 Patient medically screened. rn 15:55 Differential diagnosis: CHF exacerbation, Myocardial Infarction pneumonia, Pneumothorax rn pulmonary edema. Data reviewed: vital signs, nurses notes, lab test result(s), EKG, radiologic studies, plain films, and as a result, I will admit patient. Consideration of Admission/Observation Patient was admitted/placed on observation. Escalation of care including admission/observation considered. Management of patient was discussed with the following: Fun House Operator: yocasta Crawford diuretics and nephrology consultation.. Historians other than the Patient: Daughter/Son: . Counseling: I had a detailed discussion with the patient and/or guardian regarding: the historical points, exam findings, and any diagnostic results supporting the discharge/admit diagnosis, lab results, radiology results, the need for further work-up and treatment in the hospital. 06/24 15:06 Order name: Basic Metabolic Panel; Complete Time: 16:20 rn 06/24 15:06 Order name: CBC with Diff; Complete Time: 15:48 rn 06/24 15:06 Order name: LFT's; Complete Time: 16:20 rn 06/24 15:06 Order name: NT PRO-BNP; Complete Time: 16:20 rn 06/24 15:06 Order name: PT-INR; Complete Time: 16:10 rn 06/24 15:06 Order name: Troponin HS; Complete Time: 16:20 rn 06/24 18:28 Order name: Hemoglobin A1c; Complete Time: 18:55 EDMS 06/24 19:10 Order name: Phosphorus EDMS 06/24 19:10 Order name: Magnesium EDMS 06/24 15:06 Order name: XRAY Chest (1 view); Complete Time: 16:13 rn 06/24 15:06 Order name: EKG; Complete Time: 15:07 rn 06/24 15:06 Order name: Cardiac monitoring; Complete Time: 15:31 rn 06/24 15:06 Order name: EKG - Nurse/Tech; Complete Time: 15:31 rn 06/24 15:06 Order name: IV Saline Lock; Complete Time: 15:31 rn 06/24 15:06 Order name: Labs collected and sent; Complete Time: 15:31 rn 06/24 15:06 Order name: O2 Per Protocol; Complete Time: 15:31 rn 06/24 15:06 Order name: O2 Sat Monitoring; Complete Time: 15:31 rn 06/24 18:00 Order name: Labs - recollect needed: recollect green top; Complete Time: 18:13 bd EC:20 Rate is 50 beats/min. Rhythm is regular. QRS interval is prolonged. No Q waves. T waves rn are Normal. No ST changes noted. Clinical impression: Paced rhythm. Interpreted by me. Reviewed by me. Administered Medications: 15:31 Drug: Furosemide IVP 40 mg Route: IVP; Site: right forearm; bp 19:38 Follow up: Response: No adverse reaction kd3 Disposition Summary: 06/24/23 15:56 Hospitalization Ordered Hospitalization Status: Inpatient Admission rn Provider: Khurram Bowens rn Location: Telemetry/MedSurg (Inpatient) rn Condition: Stable rn Problem: an acute exacerbation rn Symptoms: are unchanged rn Bed/Room Type: Standard rn Room Assignment: 213(06/24/23 18:57) ll1 Diagnosis - Unspecified combined systolic (congestive) and diastolic (congestive) heart failure rn - Dyspnea, unspecified rn Forms: - Medication Reconciliation Form rn - SBAR form rn Signatures: Dispatcher [employer] [facility] Kaitlynn Guzman Roman, MD MD rn Rohith Francis, ACCESSORIES REPAIRER-C ACCESSORIES REPAIRER-[facility] Deven Brewster, RN RN bp Jerry Mata RN RN ll1 Victoria Chang RN kd3 Corrections: (The following items were deleted from the chart) 18:57 15:56 rn [email or web address]
--- NOTE | 2023-06-24 15:57 | ER ---
Nurse's Notes [facility] Name: Nirmala Ruiz Age: 83 yrs Sex: Male : 1940 Arrival Date: 06/24/2023 Time: 14:57 Bed 3 Private MD: Diagnosis: Unspecified combined systolic (congestive) and diastolic (congestive) heart failure;Dyspnea, unspecified Presentation: 06/24 15:02 Chief complaint: Patient states: SOB with exertion, fatigue, fluid retention for 7-8 ll1 days. No fever. Coronavirus screen: Vaccine status: Patient reports receiving the 2nd dose of the covid vaccine. Client denies travel out of the [place] in the last 14 days. At this time, the client does not indicate any symptoms associated with coronavirus-19. Ebola Screen: Patient denies travel to an Ebola-affected area in the 21 days before illness onset. Initial Sepsis Screen: Does the patient meet any 2 criteria? No. Patient's initial sepsis screen is negative. Does the patient have a suspected source of infection? No. Patient's initial sepsis screen is negative. Risk Assessment: Do you want to hurt yourself or someone else? Patient reports no desire to harm self or others. Onset of symptoms was June 16, 2023. 15:02 Method Of Arrival: Wheelchair ll1 15:02 Acuity: ANAY 2 ll1 Triage Assessment: 15:04 General: Appears uncomfortable, ill, Behavior is calm, cooperative, appropriate for ll1 age. Pain: Denies pain. Neuro: Reports weakness. Cardiovascular: Reports fatigue, lightheadedness, shortness of breath. Respiratory: Reports shortness of breath on exertion Onset: The symptoms/episode began/occurred 7-8 days ago. 19:36 Respiratory: the patient has moderate shortness of breath. kd3 Historical: - Allergies: 15:02 TETRACYCLINES; ll1 15:02 adhesive tape; ll1 - PMHx: 15:02 Hypertensive disorder; Hypercholesterolemia; Hypothyroidism; ll1 - Immunization history:: Client reports receiving the 2nd dose of the Covid vaccine. - Social history:: Smoking status: Patient denies any tobacco usage or history of. - Family history:: not pertinent. - Hospitalizations: : No recent hospitalization is reported. Screenin:04 [facility] ED Fall Risk Assessment (Adult) History of falling in the last 3 months, bp including since admission No falls in past 3 months (0 pts). Abuse screen: Denies threats or abuse. Denies injuries from another. Nutritional screening: No deficits noted. Tuberculosis screening: No symptoms or risk factors identified. Assessment: 15:02 General: SEE TRIAGE NOTE. bp 17:00 Reassessment: Patient appears in no apparent distress at this time. Patient is alert, bp oriented x 3, equal unlabored respirations, skin warm/dry/pink. Cardiovascular: Rhythm is Respiratory: Airway is patent Respiratory effort is even, Breath sounds with crackles bilaterally. 19:37 General: Appears in no apparent distress. Behavior is calm, cooperative. Neuro: Level kd3 of Consciousness is awake, alert, obeys commands, Oriented to person, place, time, situation. Respiratory: Airway is patent Trachea midline Respiratory effort is even, unlabored. Vital Signs: 15:02 BP 152 / 71; Pulse 51; Resp 18; Temp 97.5; Pulse Ox 95% on R/A; Weight 79.38 kg; Height ll1 5 ft. 8 in. ; Pain 0/10; 17:00 BP 152 / 68; Pulse 50; Resp 24; Pulse Ox 98% ; bp 19:36 BP 151 / 95; Pulse 50; Resp 18; Pulse Ox 98% on R/A; kd3 15:02 Body Mass Index 26.61 (79.38 kg, 172.72 cm) ll1 15:02 Pain Scale: Adult ll1 ED Course: 15:01 Patient arrived in ED. ll1 15:01 Arm band placed on Patient placed in an exam room, on a stretcher. ll1 15:04 Triage completed. ll1 15:06 Ilya Bowens MD is Attending Physician. rn 15:16 Kalpana Lopez, RN is Primary Nurse. db 15:32 Inserted saline lock: 20 gauge in right forearm, using aseptic technique. Blood bp collected. 15:56 Khurram Bowens MD is Hospitalizing Provider. rn 16:04 XRAY Chest (1 view) In Process Unspecified. EDMS 17:04 Patient has correct armband on for positive identification. Bed in low position. Call bp light in reach. Side rails up X2. 19:07 Victoria Chang, RN is Primary Nurse. kd3 19:35 No provider procedures requiring assistance completed. Patient admitted, IV remains in kd3 place. 19:36 Provided Education on: . kd3 Administered Medications: 15:31 Drug: Furosemide IVP 40 mg Route: IVP; Site: right forearm; bp 19:38 Follow up: Response: No adverse reaction kd3 Medication: 19:36 VIS not applicable for this client. kd3 Outcome: 15:56 Decision to Hospitalize by Provider. rn 19:35 Admitted to Med/surg room 213. kd3 19:35 Condition: stable 19:35 Discharge instructions given to patient, family, Instructed on the need for admit, Demonstrated understanding of instructions. 19:46 Patient left the ED. kd3 Signatures: Dispatcher [employer] EDMS Ilya Bowens MD MD rn Peltier, Brian, RN RN Jerry Maciel RN RN ll1 Victoria Chang RN RN kd3 Kalpana Lopez RN RN db
[2023-06-24 16:08] LABS: Albumin 2.9 g/dL (3.4-5.0); Bilirubin Direct 0.4 mg/dL (0-0.2); Bilirubin Indirect, Calculated 0.2 mg/dL (0.2-0.8); Bilirubin Total 0.6 mg/dL (0.2-1.0); Potassium 3.9 mEq/L (3.5-5.1); Protein, Total 7.1 g/dL (6.4-8.2)
--- NOTE | 2023-06-24 16:12 | RAD REPORT ---
EXAM DESCRIPTION: RAD - Chest Single View - 06/24/2023 4:02 pm CLINICAL HISTORY: DYSPNEA Chest pain. FINDINGS: Portable technique limits examination quality. Mild interstitial pulmonary edema. Trace bilateral pleural effusions. The heart is moderately enlarge d. No displaced fractures.Single lead pacer device. Sternotomy wires. IMPRESSION: Mild CHF versus volume overload.
[2023-06-24 16:15] LABS: Troponin High Sensitivity 82.7 pg/mL (<58.9)
[2023-06-24] MEDS ORDERED: ACETAMINOPHEN 325 MG TABLET PO PRN (16:59)
[2023-06-24] MEDS ORDERED: TRAMADOL HCL 50 MG TAB PO PRN (16:59)
[2023-06-24] MEDS ORDERED: ONDANSETRON 4 MG/2 ML VIAL IV PRN (17:10)
[2023-06-24] MEDS ORDERED: HYDRALAZINE HCL 20 MG/ML VIAL IV PRN (17:13)
--- NOTE | 2023-06-24 17:13 | P.HP ---
Certification for Inpatient Patient admitted to: Inpatient With expected LOS: >2 Midnights Patient will require the following post-hospital care: None Practitioner: I am a practitioner with admitting privileges, knowledge of patient current condition, hospital course, and medical plan of care. Services: Services provided to patient in accordance with Admission requirements found in Title 42 Section 412.3 of the Code of Federal Regulations Patient History Date of Service: 06/24/23 Reason for admission: Shortness of breath History of Present Illness: Patient is an 83-year-old male with a past medical history significant for hypertension, hypothyroidism, hyperlipidemia, DM 2 who presents with complaint of shortness of breath that has been ongoing for the past 2 weeks. Patient reported that he has been having bilateral lower extremity\abdominal swelling and patient followed up with his PCP on June 18, 2023. He indicated that his Lasix dose was doubled and patient also had lab works, imaging and echocardiogram done. His BNP and creatinine were noted to be elevated. Patient was also noted to have liver cirrhosis on imaging and echocardiogram indicated an EF of 20% per family report. Patient followed up with his yard hostler today due to worsening symptoms and patient was instructed to go to the ER. Patient reported associated signs and symptoms of cough and orthopnea. Patient denies any other signs and symptoms. Symptoms are aggravated or relieved by nothing. Patient decided to present to the hospital as directed by his yard hostler. Allergies adhesive tape Allergy (Verified 08/26/22 13:25) Large Blister tetracycline Allergy (Verified 08/26/22 13:25) Rash Home Medications: Aflibercept [Eylea] 2 mg EACH EYE SEECOM 08/26/22 Amlodipine Besylate 5 mg PO DAILY 08/26/22 Aspirin [Barbour Aspirin] 81 mg PO DAILY 08/26/22 Atorvastatin Calcium [Lipitor] 80 mg PO BEDTIME 08/26/22 Clopidogrel Bisulfate [Plavix] 75 mg PO DAILY 08/26/22 Colesevelam HCl [Welchol] 2 tab PO DAILY 08/26/22 Darbepoetin Ciro in Polysorbat [Aranesp] 25 mcg IM SEECOM 08/26/22 Furosemide [Lasix] 20 mg PO DAILY 08/26/22 Glimepiride 1 mg PO DAILY 08/26/22 Levothyroxine [Synthroid] 112 mcg PO [id number] 08/26/22 traMADol HCL [Ultram*] 50 mg PO Q6HP PRN 08/26/22 - Past Medical/Surgical History -: DM 2 -: HTN -: Hypothyroidism -: CHF Past Surgical History: Reviewed- Non-Contributory - Family History Family History: Reviewed- Non-Contributory - Social History Smoking Status: Never smoker Alcohol use: No CD- Drugs: No Caffeine use: Yes Place of Residence: Home Review of Systems General: Unremarkable Eyes: Unremarkable ENT: Unremarkable Respiratory: Cough, Shortness of Breath Cardiovascular: Orthopnea Gastrointestinal: Distention, Other (Abdominal swelling), Unremarkable Genitourinary: Unremarkable Musculoskeletal: Pedal edema Integumentary: Unremarkable Neurological: Unremarkable Lymphatics: Unremarkable Physical Examination - Physical Exam General: Alert, In no apparent distress, Oriented x3, Cooperative HEENT: Atraumatic, PERRLA, Mucous membr. moist/pink, EOMI, Sclerae nonicteric Neck: Supple, 2+ carotid pulse no bruit, No LAD, Without JVD or thyroid abnormality Respiratory: Diminished Cardiovascular: Regular rate/rhythm, Normal S1 S2, Edema Capillary refill: <2 Seconds Gastrointestinal: Normal bowel sounds, Distended, Tenderness Musculoskeletal: No clubbing, No tenderness Integumentary: No rashes Neurological: Normal speech, Normal tone, Normal affect Lymphatics: No axilla or inguinal lymphadenopathy - Studies Laboratory Data (last 24 hrs) 06/24/23 06/24/23 06/24/23 15:30 15:30 15:30 WBC 6.20 Hgb 11.0 L Hct 34.5 L Plt Count 169 PT 17.4 H INR 1.58 Sodium 135 L Potassium 3.9 BUN 77 H Creatinine 2.70 H Glucose 110 H Total Bilirubin 0.6 AST 73 H ALT 76 H Alkaline Phosphatase 267 H Assessment and Plan - Plan --Acute on chronic systolic CHF exacerbation. Chest x-ray indicates Mild CHF versus volume overload. Cardiology consulted. BNP--27793 Echocardiogram pending to assess LV\valvular function and wall motion. Patient placed on diuresis with Lasix. Daily weight and strict I/O. We will await further recommendation from yard hostler. --Elevated troponin. To rule out ACS. Will trend serial troponins. Fourth Hand on board. Telemetry to monitor for any significant arrhythmia. Will await further recommendation from yard hostler. --NARA. Unclear etiology. GFR on 08/26/2022 was 50 but now 23 today. Nephrology consulted. Will await further recommendation from senior payroll manager. -- Transaminitis. Family reported that patients abdominal imaging done last week indicated liver cirrhosis with some ascites. Unable to confirm findings. CT abdomen pending for further evaluation. We will continue to monitor LFTs. -- Anemia of chronic disease. H&H stable. We will continue to monitor hemoglobin and transfuse if less than 7.0. --Hypothyroidism. Continue Synthroid. --Hyperlipidemia. Continue statin. --Hypertension. Poorly controlled. Continue home medication and hydralazine as needed. --DM2. BS monitoring with sliding scale insulin. --DVT prophylaxis with Lovenox subQ. Discharge Plan: Home Plan to discharge in: Greater than 2 days - Advance Directives Does patient have a Living Will: No Does patient have a Durable POA for Healthcare: No - Code Status/Comfort Care Code Status Assessed: Yes Physician Review: Patient Assessed, Agree with Above Assessment and Plan Critical Care: No
[2023-06-24 19:10] LABS: Magnesium 2.2 mg/dL (1.6-2.4); Phosphorus 3.9 mg/dL (2.5-4.9)
[2023-06-24] MEDS ORDERED: D50W 25 GM/50 ML SYRINGE IV PRN (19:39)
[2023-06-24] MEDS ORDERED: GLUCAGON 1 MG/VIAL IM PRN (19:39)
[2023-06-24] MEDS ORDERED: D10W 125 ML IV PRN (19:59)
[2023-06-24] MEDS: INSULIN -REGULAR HUMAN 50 UNIT/0.5 ML ML SQ SCH (21:00)
[2023-06-24 21:44] VITALS: BMI 26.0
[2023-06-24] MEDS: ENOXAPARIN 30 MG/0.3 ML SQ SCH (22:41)
[2023-06-25 02:20] LABS: Absolute Lymphocytes (CBC) 0.5 K/uL (0.7-4.9); Hematocrit 32.9 % (39.6-49.0); MCV 95.2 fL (80-100); MPV 9.6 fL (7.6-11.3); Platelets 167 thou/uL (152-406); RBC Red Blood Cell Count 3.46 M/uL (4.33-5.43)
[2023-06-25 02:36] LABS: Urine Bacteria None Seen /HPF (<20); Urine Bilirubin NEGATIVE (Negative); Urine Blood Negative (Negative); Urine Clarity Clear (Clear); Urine Color Light-Yellow (Yellow); Urine Glucose NEGATIVE (Negative); Urine Mucus Slight /HPF (None Seen); Urine Protein 1+ (Negative); Urine RBC <5 /HPF (None Seen); Urine Urobilinogen Normal (Normal)
[2023-06-25 02:42] LABS: Albumin 2.7 g/dL (3.4-5.0); Bilirubin Direct 0.3 mg/dL (0-0.2); Bilirubin Indirect, Calculated 0.3 mg/dL (0.2-0.8); Bilirubin Total 0.6 mg/dL (0.2-1.0); Protein, Total 6.6 g/dL (6.4-8.2)
--- NOTE | 2023-06-25 07:06 | P.PN ---
Date of Service: 06/25/23 Subjective: Breathing a little more comfortably today, +SOB on exertion feels swelling in legs improving no new / worsening problems ROS: 10 point ROS as noted above, otherwise negative Physical Exam: GEN: Alert, oriented, NAD HEENT: Normal conjunctiva, sclera anicteric CV: Regular rate and rhythm, 1+ edema to knees bilaterally Pulm: Non-labored respirations on room air ABD: Soft, mild lower abdominal tenderness Integumentary: No rashes Neuro: Normal speech, normal affect vitals reviewed Problem List: Acute on chronic systolic CHF exacerbation NARA on ?CKD3 Transaminitis Anemia of chronic disease Hypothyroidism Hyperlipidemia Hypertension NIDDM2 Acute on chronic systolic CHF exacerbation CXR(06/24): Mild CHF versus volume overload echo (06/18/23): with EF of 20% troponins mildly elevated x3; Monitor on telemetry BNP - 06217 Cardiology consulted. Echo ordered Continue Lasix family state 2021 echo had EF: ~40% diuresis NARA on ?CKD3 Sees Dr. Soler GFR on 08/26/2022 was 50, now 22 reports h/o CKD3 per family Nephrology consulted. Liver Cirrhosis Transaminitis CT abdomen (06/18/23): indicated liver cirrhosis with some ascites. (per family) Abdominal u/s (06/24): Cholelithiasis. Borderline gallbladder wall thickening no pain, no tenderness, no symptoms of cholecystitis monitor LFTs Anemia of chronic disease. H&H stable. transfuse if hgb < 7.0. Hypothyroidism. Continue Synthroid. Hyperlipidemia. Continue statin. Hypertension. Poorly controlled. Continue home medication and hydralazine as needed. NIDDM2. SSI VTE: Lovenox Code: Full Dispo: Home ~2-3 days
[2023-06-25] MEDS ORDERED: AFLIBERCEPT 2 MG/0.05 ML EACH EYE SCH (07:15)
[2023-06-25] MEDS: ENOXAPARIN 30 MG/0.3 ML SQ SCH (08:35)
[2023-06-25] MEDS: FERROUS SULFATE 325 MG TAB PO SCH ×2 (08:35→20:24)
[2023-06-25] MEDS: ASPIRIN 81 MG CHEWABLE TABLET PO SCH (08:35)
[2023-06-25] MEDS ORDERED: FUROSEMIDE 40 MG/4 ML VIAL IV SCH (09:00)
[2023-06-25] MEDS: INSULIN -REGULAR HUMAN 50 UNIT/0.5 ML ML SQ SCH ×4 (09:54→20:24)
--- NOTE | 2023-06-25 11:34 | RAD REPORT ---
EXAM DESCRIPTION: US - Abdomen Exam Complete - 06/25/2023 1:47 am US - Abdomen Exam Complete - 06/25/2023 1:47 am CLINICAL HISTORY: Abdominal pain COMPARISON: None FINDINGS: Liver has a normal echotexture. Mildly nodular hepatic contour may indicate chronic diseas e. Portal vein patent Limited evaluation the pancreatic tail. Remainder of the pancreas normal in size and echotexture No significant abnormality aorta/IVC seen. Multiple gallstones. Gallbladder wall borderline thickened. Right kidney 10 centimeters with a normal echotexture. Left kidney 10 centimeters with a normal echotexture. Small renal cysts Spleen 9 centimeters Small amount of ascites IMPRESSION: Cholelithiasis Borderline gallbladder wall thickening
--- NOTE | 2023-06-25 16:56 | CON ---
Date of Consultation: 06/25/2023 Reason For Consultation: Elevated BUN and creatinine, anasarca. History Of Present Illness: This is a pleasant 83-year-old gentleman with significant past medical h istory of hypertension, hypothyroidism, hyperlipidemia, diabetes since 20 years, no retinopathy, no n ephropathy, no neuropathy, coronary artery disease with multiple CABGs and PTCA, last 1 in 2016, stat us post ICD and Watchman procedure, ejection fraction of 20%, complicated with congestive heart failu re, status post aortic valve replacement. The patient was in his regular state of health. The patie nt had chronic kidney disease, follows up with Dr. Alatorre. Seen back on the 08 of June, at that time creatinine 1.7 to 1.8, found to have marginal hyperkalemia. For that reason, Lokelma was increased. According to the patient, since then he started having increase in his leg swelling. For that reas on, he visited with his primary care and Lasix has been increased on the . The patient continue to feel weak and declining. For that reason, he reported to the hospital. Upon arrival to the [facility], lab done and found to have elevation in BUN and creatinine, creatinine 2.7 with GFR down to 22. A s I mentioned back in May, creatinine 1.7 to 1.8. For that reason, the patient was admitted. The p atient denied taking any nonsteroidal. No other change in his medication except the Lokelma and the Lasix. The patient was started on the Lasix. On the lab, creatinine yesterday was 2.7, today 2.75. The patient complaining from orthopnea. Past Medical History: Includes; 1.Chronic kidney disease, stage 3B. Baseline creatinine 1.8. 2.Hypertension. 3.Diabetes. No retinopathy. No neuropathy. 4.CAD, status post PTCA, status post CABG, complicated with congestive heart failure, ejection fract ion of 20%. 5.Hypothyroidism. 6.Hyperlipidemia. Past Surgical History: Includes; 1.CABG. 2.PTCA. Family History: Positive for hypertension. Social History: Denied smoking, denied drinking, denied drugs abuse. Allergies: TO ADHESIVE AND TETRACYCLINE. Review of Systems: Head and Neck: No red eye. No ear pain. GI: No nausea. No vomiting. Has increase in abdominal girth. [employer] Glazer: Not applicable. Respiratory: Has shortness of breath. Cardiovascular: Has orthopnea. Has leg swelling. Endocrine: No polydipsia. Skin: No rash. Neuro: No neuropathy. Musculoskeletal: Generalized fatigue. Physical Examination: Vital Signs: Blood pressure 118/52, pulse of 50, afebrile. Chest: Faint rales, more prominent on the left side. Abdomen: Soft, nontender. Ascites. Extremity: +1 edema. Neuro: Alert. No focality. Laboratory Data: BNP of 21,000. Chest x-ray; no cardiomegaly, no congestion, no pleural effusion. Hemoglobin 10.6. Sodium 136, potassium 4, bicarb 23, BUN 80, creatinine 2.7, GFR 22, calcium 8.6. R enal ultrasound; normal size kidney 09/01, small renal cyst. Current Medications: The patient on include aspirin, Lasix, Lovenox, atorvastatin, hydralazine, Tyle nol, Zofran, levothyroxine. Assessment And Plan: 1.Acute kidney injury, mostly secondary to over diuresis. Looked to me the patient on the dry side. I am going to go ahead and keep holding the Lokelma. I am going to give the patient some fluid exp ansion as it has a component of hepatorenal syndrome. I do not see the need for albumin right now to avoid any over volume given the ejection fraction of 20% and I will monitor the patient closely. Ob structive uropathy has been ruled out and we will follow up. 2.Hypertension, currently blood pressure controlled. The patient is normal volume. Hold diuresis. 3.Congestive heart failure, coronary artery disease. Currently, the patient on the dry side. I do not see any need for the diuresis. We will hold. 4.Hyperkalemia. The patient is so sensitive for the sodium load as he developed this swelling after increasing the Lokelma. I going to hold Lokelma. I do not see the need for it right now given the normalization on the potassium. If the patient is needing any potassium binder, I will select the Ve ltassa over the Lokelma. 5.Anasarca possible secondary to hepatorenal/advanced congestive heart failure. Currently, the eliud ent only third spacing. I do not see any fluid in the lung neither on the chest x-ray. Given the ac milan kidney injury, hold the Lasix. We will give IV fluid. Hypothyroidism has been ruled out. [place] levothyroxine. We will send for PC ratio and we will follow up the patient closely. We will get venous Doppler bilateral to further evaluate the patient. Mostly, the swelling was secondary to the salt load that happened with Lokelma. Again if the patient is needing any potassium binder down in the road, I am going to go in favor of the V[place]assa. 6.Hyperlipidemia. Continue current treatment. 7.Diabetes as by primary. Time spent examining the patient [id number], reviewing data, lab, and radiology, placing order, dis cussing the case with the patient, discussing the case with the family by bedside, daughters and , discussing the case with the steam power plant operator including the hospitalist and nursing staff more than 75 m inutes. LILIAM Voice ID: [id number] Report ID: [id number]
[2023-06-25] MEDS ORDERED: NA CHLORIDE 0.9% 500 ML IV SCH (17:00)
[2023-06-25 18:50] LABS: Urine Protein/Creatinine Ratio 0.8 ratio (<0.15)
[2023-06-25] MEDS: ATORVASTATIN 80 MG TAB PO SCH (20:23)
[2023-06-26 04:13] LABS: Absolute Lymphocytes (CBC) 0.5 K/uL (0.7-4.9); Hematocrit 30.9 % (39.6-49.0); Lymphocytes % 7.4 % (15.3-44.8); MCV 94.8 fL (80-100); MPV 9.2 fL (7.6-11.3); Platelets 168 thou/uL (152-406); RBC Red Blood Cell Count 3.26 M/uL (4.33-5.43)
[2023-06-26 04:32] LABS: Albumin 2.5 g/dL (3.4-5.0); Bilirubin Total 0.5 mg/dL (0.2-1.0); Magnesium 2.2 mg/dL (1.6-2.4); Phosphorus 3.2 mg/dL (2.5-4.9); Potassium 3.6 mEq/L (3.5-5.1); Protein, Total 6.4 g/dL (6.4-8.2); Uric Acid 9.6 mg/dL (3.5-7.2)
[2023-06-26] MEDS: LEVOTHYROXINE SOD 0.112 MG TAB PO SCH (06:00)
--- NOTE | 2023-06-26 06:50 | P.PN ---
Date of Service: 06/26/23 Subjective: feeling better today Breathing continues to improve; able to be more active before getting SOB - few steps voiding without issues Swelling in legs improving ROS: 10 point ROS as noted above, otherwise negative Physical Exam: GEN: Alert, oriented, NAD HEENT: Normal conjunctiva, sclera anicteric CV: Regular rate and rhythm, trace to 1+ edema bilaterally Pulm: Non-labored respirations on room air at rest ABD: Soft, nontender, nondistended Integumentary: No rashes Neuro: Normal speech, normal affect vitals reviewed Problem List: Acute on chronic systolic CHF exacerbation vs volume overload NARA on ?CKD3 Transaminitis Anemia of chronic disease Hypothyroidism Hyperlipidemia Hypertension NIDDM2 Acute on chronic systolic CHF exacerbation vs volume overload CXR(06/24): Mild CHF vs volume overload Venous u/s (06/25): No DVT Echo (06/18/23): with EF of 20% per family at OSH repeat echo 06/24 - EF: 51%, significant left ventricular conduction abnormality and it is functioning well, diastolic dysfunction, Mild MR, mild TR troponins mildly elevated x3; Monitor on telemetry lasix on hold per nephrology - suspect volume overload more due to third spacing / electrolytes, less chf BNP - [id number] Cardiology consulted. NARA on ?CKD3 Sees Dr. Soler in office; consulted GFR on 08/26/2022 was 50, now 22 family report h/o CKD3 Nephrology consulted. Hold lasix 06/26 - suspect volume overload more due to third spacing / electrolytes, less chf given gentle ivf workup ordered Liver Cirrhosis Transaminitis CT abdomen (06/18/23): indicated liver cirrhosis with some ascites. (per family) Abdominal u/s (06/24): Cholelithiasis. Borderline gallbladder wall thickening no pain, no tenderness, no symptoms of cholecystitis monitor LFTs; workup ordered Anemia of chronic disease. H&H stable. transfuse if hgb < 7.0. Hypothyroidism. Continue Synthroid. Hyperlipidemia. Continue statin. Hypertension. Continue home medication and hydralazine as needed. NIDDM2. SSI VTE: Lovenox Code: Full Dispo: Home ~2 days
--- NOTE | 2023-06-26 07:08 | ECHO ---
HEIGHT: 5 ft 8 in WEIGHT: 171 lb 3.2 oz DATE OF STUDY: 06/25/[address]: Alison Phan 2-DIMENSIONAL: YES M.MODE: YES DOPPLER: YES COLOR FLOW: YES TDS: PORTABLE: YES DEFINITY: BUBBLE STUDY: DIAGNOSIS: CONGESTIVE HEART FAILURE CARDIAC HISTORY: CATHERIZATION: YES SURGERY: YES PROSTHETIC VALVE: AORTIC VALVE REPAIR PACEMAKER: YES MEASUREMENTS (cm) DIASTOLIC (NORMALS) SYSTOLIC (NORMALS) IVSd 0.9 (0.6-1.2) LA Diam 5.3 (1.9-4.0) LVEF 51% LVIDd 5.8 (3.5-5.7) LVIDs 4.2 (2.0-3.5) %FS 27% LVPWd 1.1 (0.6-1.2) Ao Diam 2.6 (2.0-3.7) 2 DIMENSIONAL ASSESSMENT: RIGHT ATRIUM: NORMAL LEFT ATRIUM: ENLARGED RIGHT VENTRICLE: NORMAL LEFT VENTRICLE: NORMAL TRICUSPID VALVE: MILD TRICUSPID REGURGITATION MITRAL VALVE: MILD MITRAL REGURGITATION PULMONIC VALVE: NORMAL AORTIC VALVE: BIOPROSTHESIS IS PRESENT PERICARDIAL EFFUSION: NONE AORTIC ROOT: NORMAL LEFT VENTRICULAR WALL MOTION: MILD GLOBAL HYPOKINESIS DOPPLER/COLOR FLOW: SEE BELOW COMMENTS: 1. LOW NORMAL LEFT VENTRICULAR EJECTION FRACTION 50% 2. SIGNIFICANT LEFT VENTRICULAR CONDUCTION ABNORMALITY AND IT IS FUNCTIONING WELL 3. DIASTOLIC DYSFUNCTION 4. MILD MITRAL REGURGITATION/ MILD TRICUSPID REGURGITATION TECHNOLOGIST: LEN RANDHAWA
[2023-06-26] MEDS: INSULIN -REGULAR HUMAN 50 UNIT/0.5 ML ML SQ SCH ×4 (07:30→20:42)
--- NOTE | 2023-06-26 07:47 | RAD REPORT ---
EXAM DESCRIPTION: US - Extrem Venous W Compress Jordy - 06/25/2023 11:57 pm CLINICAL HISTORY: edema Bilateral leg edema and swelling. COMPARISON: No comparisons TECHNIQUE: Real-time sonographic interrogation of the left and right lower extremity deep venous sys tems was performed. FINDINGS: Normal compressibility, flow augmentation, phasic flow and spontaneous flow is identified in both the left and right lower extremity deep venous systems. IMPRESSION: No sonographic evidence of left or right lower extremity deep venous thrombosis.
[2023-06-26] MEDS ORDERED: POTASSIUM CL SA 10 MEQ TAB PO ONE (09:00)
[2023-06-26] MEDS: FERROUS SULFATE 325 MG TAB PO SCH ×2 (09:08→20:41)
[2023-06-26] MEDS: ASPIRIN 81 MG CHEWABLE TABLET PO SCH (09:08)
[2023-06-26] MEDS: ENOXAPARIN 30 MG/0.3 ML SQ SCH (09:08)
--- NOTE | 2023-06-26 10:30 | P.PN ---
Subjective Date of Service: 06/26/23 Chief Complaint: Shortness of breath Subjective: Other (reports no increase in shortness of breath.) Physical Examination - Vital Signs Temperature: 97.0 F Blood Pressure: 140/62 Pulse: 54 Respirations: 16 Pulse Ox (%): 94 - Physical Exam General: Other (appears as his stated age) HEENT: Atraumatic, Normocephalic Neck: Supple, JVD not distended Respiratory: Other (symmetric chest expansion) Cardiovascular: No rubs, No murmurs Gastrointestinal: Soft and benign, No guarding Musculoskeletal: No clubbing Integumentary: No warmth Neurological: Normal tone Urinary: Other (no bladder distention) External genitalia: Deferred Rectal: Deferred Assessment And Plan - Plan # NARA 2/2 CRS1 Resume lasix at 80 mg IV bid [place] po fluid intake at least 2L/d # CKD3 Baseline GFR around 50 ml/min Monitor renal panel # Acute on chronic systolic HF Resume lasix IV bid F/u repeat BNP Strict low Na diet < 2g/d Do not limit po fluid intake, unless he develops hyponatremia < 130 meq/L,to avoid further NARA on diuretics # Htn continue current medication regimen # DM2 Mngt per primary team Physician Review: Patient Assessed, Agree with Above Assessment and Plan
[2023-06-26] MEDS: FUROSEMIDE 40 MG/4 ML VIAL IV SCH (16:12)
[2023-06-26] MEDS: ATORVASTATIN 80 MG TAB PO SCH (20:42)
[2023-06-27] MEDS: LEVOTHYROXINE SOD 0.112 MG TAB PO SCH (06:22)
--- NOTE | 2023-06-27 06:56 | P.PN ---
Date of Service: 06/27/23 Subjective: Feeling a little better today Breathing continues to improve - ambulating a few feet further before dyspneic swelling in legs continues to improve no new / worsening problems ROS: 10 point ROS as noted above, otherwise negative Physical Exam: GEN: Alert, oriented, NAD HEENT: Normal conjunctiva, sclera anicteric CV: Regular rate and rhythm, trace to 1+ edema bilaterally Pulm: Non-labored respirations on room air at rest ABD: Soft, nontender, nondistended Neuro: Normal speech, normal affect vitals reviewed Problem List: Acute on chronic systolic CHF exacerbation NARA on CKD3 Transaminitis Anemia of chronic disease Hypothyroidism Hyperlipidemia Hypertension NIDDM2 Acute on chronic systolic CHF exacerbation CXR(06/24): Mild CHF vs volume overload Venous u/s (06/25): No DVT Echo (06/18/23): with EF of 20% per family at OSH repeat echo 06/24 - EF: 51%, significant left ventricular conduction abnormality and it is functioning well, diastolic dysfunction, Mild MR, mild TR troponins mildly elevated x3; Monitor on telemetry cont lasix BNP - 36104 Cardiology consulted. edema improving NARA on CKD3 Sees Dr. Soler in office; consulted GFR on 08/26/2022 was 50 family report h/o CKD3 Nephrology consulted cont lasix improving Liver Cirrhosis Transaminitis CT abdomen (06/18/23): indicated liver cirrhosis with some ascites. (per family) Abdominal u/s (06/24): Cholelithiasis. Borderline gallbladder wall thickening no pain, no tenderness, no symptoms of cholecystitis monitor LFTs; workup ordered Anemia of chronic disease. H&H stable. transfuse if hgb < 7.0. Hypothyroidism. Continue Synthroid. Hyperlipidemia. Continue statin. Hypertension. Continue home medication and hydralazine as needed. NIDDM2. SSI VTE: Lovenox Code: Full Dispo: Home ~1-2 days
[2023-06-27 06:57] LABS: Absolute Lymphocytes (CBC) 0.6 K/uL (0.7-4.9); Hematocrit 30.3 % (39.6-49.0); Lymphocytes % 7.9 % (15.3-44.8); MCV 93.7 fL (80-100); MPV 9.4 fL (7.6-11.3); Platelets 177 thou/uL (152-406); RBC Red Blood Cell Count 3.23 M/uL (4.33-5.43)
[2023-06-27 07:17] LABS: Albumin 2.5 g/dL (3.4-5.0); Bilirubin Total 0.6 mg/dL (0.2-1.0); Magnesium 2.1 mg/dL (1.6-2.4); Phosphorus 2.9 mg/dL (2.5-4.9); Protein, Total 6.3 g/dL (6.4-8.2)
[2023-06-27] MEDS: INSULIN -REGULAR HUMAN 50 UNIT/0.5 ML ML SQ SCH ×4 (07:30→20:23)
[2023-06-27] MEDS: FERROUS SULFATE 325 MG TAB PO SCH ×2 (09:03→20:22)
[2023-06-27] MEDS: ENOXAPARIN 30 MG/0.3 ML SQ SCH (09:03)
[2023-06-27] MEDS: ASPIRIN 81 MG CHEWABLE TABLET PO SCH (09:03)
[2023-06-27] MEDS: FUROSEMIDE 40 MG/4 ML VIAL IV SCH (09:04)
--- NOTE | 2023-06-27 15:52 | CON ---
Date of Consultation: 06/25/2023 Reason For Consultation: CHF. History Of Present Illness: An 83-year-old male, history of hypertension, dyslipidemia, diabetes, hy pothyroidism, seen in my office because of significant shortness of breath, generalized weakness, and significant lower extremity edema. Apparently, he was admitted to the hospital in [place] and they did an echo and he was told that his ejection fraction is 20% and patient is very well known to me, and his ejection fraction always has been normal. The patient was sent to the hospital for further m anagement and started on IV diuretics and he is doing significantly better with IV Lasix. An echo wa s done today. Past Medical History: As outlined above in the HPI. Medications: Refer reconciliation sheet for detailed list. Allergies: TETRACYCLINE. Family History: No premature coronary artery disease or cancer. Social History: He does not smoke or drink. Does not use any drugs. Review of Systems: All systems reviewed and they were negative except as mentioned in the HPI. Physical Examination: Vital Signs: Reviewed. Head and Neck: Pupils are equal, reactive to light. Intact eye movements. No JVD. No adenopathy. Neck is supple. Thyroid is not enlarged. Lungs: Clear to auscultation bilaterally. No wheezing, crackles. No accessory muscle use. Heart: Irregular. No extra sounds. Abdomen: Soft, nontender. Bowel sounds positive. No organomegaly. No masses or hernia. No rigidi ty or rebound. Extremities: 3 to 4+ pitting edema bilaterally. No clubbing, cyanosis. Intact pulses. Skin: No rash. Neurologic: Alert, awake, oriented x3. No acute focal deficits appreciated. Investigations: BUN 80, creatinine is 2.75. Troponin 79. The hemoglobin was 10.6. Assessment/recommendation: 1.Acute congestive heart failure. I reviewed his echo today and he has good squeezing function in g eneral and his heart function is normal. However, there is significant desynchrony, which is putting him in significant heart failure. Patient has a right-sided pacemaker, dual chambers and he will be nefit significantly from a biventricular pacing by adding a third lead and resynchronizing his heart and I will plan on doing this once his acute heart failure is managed. at this moment, co ntinue IV diuretics as he is doing better and recommend to involve Nephrology due to the chronic kidn ey disease. 2.Acute on chronic renal failure. This is in part due to the acute exacerbation of his heart failur e and elevated central venous pressure. It should improve with Lasix and further diuresis. 3.Dyslipidemia: Statin. 4.Elevated troponin mildly. Patient has no chest pain. This is likely demand. We will monitor. SR/MODL Voice ID: [id number] Report ID: [id number]
--- NOTE | 2023-06-27 16:15 | PN ---
Date of Progress Note: 06/27/2023 Subjective: Seen at bedside, doing clinically very well, continues to improve. No significant short ness of breath today. Review of Systems: Has lower extremity edema, but no shortness of breath or chest pain or orthopnea. No nausea, vomitin g, or diarrhea. All other systems reviewed, they were negative. Objective: Vital Signs: Reviewed. Head and Neck: Pupils are equal, reactive to light. Intact eye movements. Positive JVD. No cervic al lymphadenopathy. Neck: Supple. Thyroid is not enlarged. Lungs: Clear to auscultation bilaterally. No rhonchi, rales, or crackles. No accessory muscle use. Heart: Irregular. No extra sounds. Abdomen: Soft, nontender. Bowel sounds positive. No organomegaly. No masses or hernia. No rigidi ty or rebound. Extremities: No clubbing or cyanosis. Positive edema with improvement. Neurologic: Alert, awake, and oriented x3. No acute focal deficits appreciated. Investigations: BUN is 86, creatinine 2.42. Assessment/recommendations: 1.Acute congestive heart failure due to significant left ventricle desynchrony that is falsely givin g an impression of low ejection fraction and plan for a resynchronization therapy as outlined before and then to continue IV diuresis. 2.Acute on chronic renal failure, improving. Continue current management with diuretics. Carefully monitor BUN, creatinine, and electrolytes, and the patient is being followed by Nephrology. 3.Elevated troponin. This is likely demand as the patient has no symptoms. SR/MODL Voice ID: [id number] Report ID: [id number]
--- NOTE | 2023-06-27 16:27 | PN ---
Date of Progress Note: 06/26/2023 Subjective: Seen at bedside. Continues to improve, diuresing. Creatinine is improving. Review of Systems: No chest pain. Has shortness of breath on exertion. Lower extremity edema that has significantly im proved. No nausea, vomiting, diarrhea. No abdominal pain. All other systems were reviewed, they ar e negative. Physical Examination: Vital Signs: Reviewed. Head and Neck: Pupils are equal, reactive to light. Intact eye movements. No JVD. No cervical lym phadenopathy. Neck: Supple. Thyroid is not enlarged. Lungs: Clear to auscultation bilaterally. No rhonchi, rales, or crackles. No accessory muscle use. Heart: Irregular. No extra sounds. Abdomen: Soft, nontender. Bowel sounds positive. No organomegaly. No masses or hernia. No rigidi ty or rebound.. Extremities: No clubbing or cyanosis, but there is 3+ pitting edema bilaterally. Neurologic: Alert, awake. No acute focal deficits appreciated. Investigations: BUN 87, creatinine 2.66, and his hemoglobin is 10.1. Assessment And Recommendations: 1.Acute congestive heart failure exacerbation due to significant desynchrony of the left ventricle. Continue IV diuresis. He is improving. Plan for adding a third lead pacemaker to resynchronize his heart and that should improve his condition very well. In the interim, continue diuresis until the patient becomes euvolemic. 2.Dyslipidemia. Continue statin. 3.Acute on chronic renal failure. He is known to have chronic kidney disease. His baseline creatin ine is around 1.7-1.8, and the exacerbation now is due to the elevated central venous pressure from heart failure and it is improving with Lasix and being followed by Nephrology. SR/MODL Voice ID: [id number] Report ID: [id number]
[2023-06-27] MEDS: FUROSEMIDE 40 MG TABLET PO SCH (16:45)
--- NOTE | 2023-06-27 17:51 | PN ---
Date of Progress Note: 06/27/2023 Subjective: Patient admitted with cardiorenal. The patient was started on hydration, then we will resume diuresis. Hyperkalemia resolved. The patient had overload with salt load with Lokelma. Physical Examination: Vital Signs: Blood pressure 144/61, pulse of 49, afebrile. General: The patient had good urine output of 1400. Swelling still slightly better. The patient lost 3 pounds from admission. Chest: Faint crackles bilateral. Heart: S1, S2. Systolic murmur. Abdomen: Soft, nontender. Extremities: +1 edema. Neurologic: Alert, no focal. Laboratory Data: Hemoglobin of 10. Sodium 135, potassium 4, bicarb 23, BUN 86, creatinine 2.4. GFR 26, calcium 8.5, phosphorus 2.9, albumin 2.5. Current Medications: The patient on include ferrous sulfate, Lovenox, aspirin, atorvastatin, Tylenol, Lasix 80 b.i.d., Zofran, levothyroxine. Assessment And Plan: 1. Acute kidney injury secondary to cardiorenal complicated with hyperkalemia, improving. I am going to go ahead and switch the Lasix to oral and we will continue to monitor the patient. 2. Hypertension, controlled, optimal. Continue current diuresis. 3. Hyperkalemia, resolved. Keep holding any Lokelma. 4. The rest is as by primary. Time spent examining the patient [id number], reviewing data, lab and radiology, placing order, discussing the case with the logistics team leader including hospitalist and nursing staff more than 35 minutes. LILIAM Voice ID: [id number] Report ID: [id number] JOVITA
[2023-06-27] MEDS: ATORVASTATIN 80 MG TAB PO SCH (20:22)
[2023-06-28 03:19] LABS: Absolute Lymphocytes (CBC) 0.5 K/uL (0.7-4.9); Hematocrit 29.7 % (39.6-49.0); Lymphocytes % 6.3 % (15.3-44.8); MCV 93.6 fL (80-100); MPV 9.7 fL (7.6-11.3); Platelets 172 thou/uL (152-406); RBC Red Blood Cell Count 3.17 M/uL (4.33-5.43)
[2023-06-28 03:29] LABS: Albumin 2.4 g/dL (3.4-5.0); Phosphorus 3.5 mg/dL (2.5-4.9)
[2023-06-28] MEDS: LEVOTHYROXINE SOD 0.112 MG TAB PO SCH (05:42)
--- NOTE | 2023-06-28 06:39 | P.PN ---
Date of Service: 06/28/23 Subjective: feeling better today, improving each day breathing more comfortably on room air today no new / worsening problems ROS: 10 point ROS as noted above, otherwise negative Physical Exam: GEN: Alert, oriented, NAD HEENT: Normal conjunctiva, sclera anicteric CV: Regular rate and rhythm, trace to 1+ edema bilaterally Pulm: Non-labored respirations on room air at rest ABD: Soft, nontender, nondistended Neuro: Normal speech, normal affect vitals reviewed Problem List: Acute on chronic systolic CHF exacerbation NARA on CKD3 Transaminitis Anemia of chronic disease Hypothyroidism Hyperlipidemia Hypertension NIDDM2 Acute on chronic systolic CHF exacerbation CXR(06/24): Mild CHF vs volume overload ; improving Venous u/s (06/25): No DVT Echo (06/18/23): with EF of 20% per family at OSH repeat echo 06/24 - EF: 51%, significant left ventricular conduction abnormality and it is functioning well, diastolic dysfunction, Mild MR, mild TR troponins mildly elevated x3; Monitor on telemetry BNP - 98015 Cardiology consulted f/u outpatient - plans to add third lead pacemaker for resynchronization therapy cont lasix - IV switched to PO (06/27) edema improving NARA on CKD3 Sees Dr. Soler in office; consulted GFR (08/26/2022): 50 family report h/o CKD3 Nephrology consulted cont PO lasix possibly new baseline mostly stable with diuresis Liver Cirrhosis Transaminitis CT abdomen (06/18/23): indicated liver cirrhosis with some ascites. (per family) Abdominal u/s (06/24): Cholelithiasis. Borderline gallbladder wall thickening no pain, no tenderness, no symptoms of cholecystitis monitor LFTs; workup ordered Anemia of chronic disease. H&H stable. transfuse if hgb < 7.0. Hypothyroidism. Continue Synthroid. Hyperlipidemia. Continue statin. Hypertension. Continue home medication and hydralazine as needed. NIDDM2. SSI VTE: Lovenox Code: Full Dispo: Home ~1-2 days
[2023-06-28] MEDS: INSULIN -REGULAR HUMAN 50 UNIT/0.5 ML ML SQ SCH ×4 (07:30→20:16)
[2023-06-28] MEDS: FUROSEMIDE 40 MG TABLET PO SCH ×3 (08:39→20:15)
[2023-06-28] MEDS: FERROUS SULFATE 325 MG TAB PO SCH ×2 (08:39→20:15)
[2023-06-28] MEDS: ASPIRIN 81 MG CHEWABLE TABLET PO SCH (08:39)
[2023-06-28] MEDS: ENOXAPARIN 30 MG/0.3 ML SQ SCH (08:43)
--- NOTE | 2023-06-28 10:54 | RAD REPORT ---
EXAM DESCRIPTION: Addie Single View06/28/2023 10:35 am CLINICAL HISTORY: Chest pain COMPARISON: 06/24/2023 FINDINGS: Mild bilateral pulmonary opacities Small bilateral pleural effusions Cardiomegaly Pacemaker leads in place. Postsurgical changes involve the chest IMPRESSION: These findings probably indicate mild CHF
[2023-06-28] MEDS ORDERED: FUROSEMIDE 40 MG/4 ML VIAL IV ONE (11:00)
--- NOTE | 2023-06-28 11:32 | PN ---
Date of Progress Note: 06/28/2023 Subjective: The patient was admitted to the hospital with over volume and hyperkalemia. The patient was started on gentle hydration in the beginning, then switched to diuresis. The patient did well. Kidney function has plateaued in the last 48 hours. Physical Examination: Vital Signs: When I saw the patient; blood pressure 140/59, pulse of 49, afebrile. The patient had good urine output of 2200, negative of 1200. Weight is still not recorded. Chest: Faint thrills bilateral base. Heart: S1, S2. Systolic murmur. Abdomen: Soft, nontender. Extremity: Plus edema. Neuro: Alert. No focality. Laboratory Data: Chest x-ray; still the patient has congestion. Hemoglobin 9.9. Sodium 134, potassium 4, bicarb 22, BUN 94, creatinine 2.6, GFR of 23, calcium 8.3, phosphorus 3.5, magnesium 2, albumin 2.4, corrected calcium is 9.5. Current Medications: The patient on include; 1. Aspirin. 2. Lovenox. 3. Ferrous sulfate. 4. Atorvastatin. 5. Hydralazine. 6. Tylenol. 7. Lasix 80 b.i.d. 8. Levothyroxine. 9. Tramadol. Assessment And Plan: 1. Acute kidney injury secondary to cardiorenal syndrome, still on the over volume side. I am going to go ahead and increase Lasix to 80 mg t.i.d. and we will give extra dose of Lasix today and we will continue to monitor the patient. 2. Hypertension, controlled. We will keep utilizing blood pressure for more diuresis. 3. Hyperkalemia, resolved. We will consider if the patient is going to need any potassium binder to use Veltassa instead of Lokelma to avoid salt load. 4. Congestive heart failure with exacerbation as above. 5. Hypothyroidism. As by primary. 6. 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 Follow up with primary. Time spent examining the patient [id number], reviewing data, lab and radiology, placing order, discussing the case with the cafeteria team leader including hospitalist and nursing staff more than 35 minutes. LILIAM Voice ID: [id number] Report ID: [id number] [facility]
[2023-06-28] MEDS ORDERED: NACHLORIDE 0.45% 1,000 ML with NA BICARB 8.4% 75 MEQ IV SCH ×2 (16:00)
[2023-06-28] MEDS: ATORVASTATIN 80 MG TAB PO SCH (20:16)
[2023-06-29] MEDS: LEVOTHYROXINE SOD 0.112 MG TAB PO SCH (06:44)
[2023-06-29 06:45] LABS: Albumin 2.6 g/dL (3.4-5.0); Phosphorus 3.8 mg/dL (2.5-4.9); Potassium 4.3 mEq/L (3.5-5.1)
--- NOTE | 2023-06-29 07:11 | P.PN ---
Date of Service: 06/29/23 Subjective: feeling better today swelling continues to improve daily Breathing more comfortably on room air ambulating - able to take few more steps before dyspneic ROS: 10 point ROS as noted above, otherwise negative Physical Exam: GEN: Alert, oriented, NAD HEENT: Normal conjunctiva, sclera anicteric CV: Regular rate and rhythm, 1-2+ edema bilaterally to just below knees Pulm: Non-labored respirations on room air at rest ABD: Soft, nontender, nondistended Neuro: Normal speech, normal affect vitals reviewed Problem List: Acute on chronic systolic CHF exacerbation NAAR on CKD3 Transaminitis Anemia of chronic disease Hypothyroidism Hyperlipidemia Hypertension NIDDM2 Acute on chronic systolic CHF exacerbation CXR(06/24): Mild CHF vs volume overload ; improving Venous u/s (06/25): No DVT Echo (06/18/23): with EF of 20% per family at OSH repeat echo 06/24 - EF: 51%, significant left ventricular conduction abnormality and it is functioning well, diastolic dysfunction, Mild MR, mild TR troponins mildly elevated x3; Monitor on telemetry BNP - 52266 Cardiology consulted plans to add third lead pacemaker for resynchronization therapy outpatient vs transfer to ?[place] per [facility] cont lasix - IV switched to PO (06/27) edema improving NARA on CKD3 Sees Dr. Soler in office; consulted GFR (08/26/2022): 50 family report h/o CKD3 Nephrology consulted cont PO lasix - decreased 06/29 possibly new baseline mostly stable with diuresis Liver Cirrhosis Transaminitis CT abdomen (06/18/23): indicated liver cirrhosis with some ascites. (per family) Abdominal u/s (06/24): Cholelithiasis. Borderline gallbladder wall thickening no pain, no tenderness, no symptoms of cholecystitis monitor LFTs; workup ordered Anemia of chronic disease. H&H stable. transfuse if hgb < 7.0. Hypothyroidism. Continue Synthroid. Hyperlipidemia. Continue statin. Hypertension. Continue home medication and hydralazine as needed. NIDDM2. SSI VTE: Lovenox Code: Full Dispo: Home ~1-2 days vs transfer to [place]
[2023-06-29] MEDS: INSULIN -REGULAR HUMAN 50 UNIT/0.5 ML ML SQ SCH ×4 (07:30→20:41)
[2023-06-29] MEDS: ASPIRIN 81 MG CHEWABLE TABLET PO SCH (09:10)
[2023-06-29] MEDS: FERROUS SULFATE 325 MG TAB PO SCH ×2 (09:10→20:41)
[2023-06-29] MEDS: ENOXAPARIN 30 MG/0.3 ML SQ SCH (09:10)
[2023-06-29] MEDS: FUROSEMIDE 40 MG TABLET PO SCH ×2 (09:10→13:47)
--- NOTE | 2023-06-29 13:21 | EKG ---
Test Date: 2023-06-24 Test Time: 15:17:05 Manager Of Clinical: MAHI MEASUREMENT RESULTS: Intervals: Rate: 50 HI: QRSD: 164 QT: 554 QTc: 505 [place]: P: HI: QRS: -66 T: 119 INTERPRETIVE STATEMENTS: Electronic ventricular pacemaker Compared to ECG 08/26/2022 13:43:46 Uncertain supraventricular rhythm no longer present Ventricular premature complex(es) no longer present Left-axis deviation no longer present Right bundle-branch block no longer present Myocardial infarct finding no longer present Electronically Signed On 06-29-23 13:13:17 CDT by Ced Galicia
[2023-06-29] MEDS: ATORVASTATIN 80 MG TAB PO SCH (20:41)
[2023-06-29 20:49] VITALS: O2SAT 92
--- NOTE | 2023-06-30 00:42 | PN ---
Date of Progress Note: 06/29/2023 Subjective: Acute on chronic kidney injury, nonoliguric, associated with fluid overload and hyperkal emia. The patient currently is on diuretics for volume control. Patient became fluid overloaded. Mery biggs has acute kidney injury secondary to cardiorenal syndrome and patient is on Lasix 80 mg 3 times per day. Patient denies chest pain, palpitation. Denies fever or chills. Physical Examination: Lungs: Few rhonchi. Heart: S1, S2. Abdomen: Soft, benign, nontender. Extremities: 1+ edema. Laboratory Data: Chest x-ray showed vascular congestion. Hemoglobin 9.9, hematocrit 29.7, WBC 8.0, platelet count 172,000. Sodium 132, potassium 4.3, chloride 100, CO2 of 23, BUN 103, creatinine 2.89 , estimated GFR 21, glucose 122. Impression And Plan: 1.Acute kidney injury. Patient has elevated azotemia. Serum creatinine level is plateauing. 2.Hyponatremia secondary to cardiorenal syndrome. Patient is on Lasix. Plan is to avoid HCTZ, and continue Lasix. The patient has severe cardiorenal syndrome and currently dose of Lasix is increased to 3 times per day. Monitor daily electrolytes and renal panel. 3.Hypertension, controlled. 4.Hyperkalemia, resolved. The patient previously was taking Lokelma at home and Lokelma was used in the hospital. Monitor potassium level and continue sodium bicarbonate tablet in lieu of metabolic a cidosis. 5.Congestive heart failure with exacerbation, currently on Lasix, ADITYA inhibitor is on hold due to ac [place] kidney injury and hyperkalemia. EB/MODL Voice ID: [id number] Report ID: [id number]
[2023-06-30 03:49] LABS: Albumin 2.5 g/dL (3.4-5.0); Phosphorus 3.8 mg/dL (2.5-4.9); Potassium 4.2 mEq/L (3.5-5.1)
[2023-06-30] MEDS: LEVOTHYROXINE SOD 0.112 MG TAB PO SCH (06:36)
[2023-06-30] MEDS: INSULIN -REGULAR HUMAN 50 UNIT/0.5 ML ML SQ SCH ×2 (07:30→12:16)
[2023-06-30] MEDS: FERROUS SULFATE 325 MG TAB PO SCH (08:23)
[2023-06-30] MEDS: ASPIRIN 81 MG CHEWABLE TABLET PO SCH (08:23)
[2023-06-30] MEDS: ENOXAPARIN 30 MG/0.3 ML SQ SCH (08:23)
[2023-06-30] MEDS ORDERED: FUROSEMIDE 40 MG TABLET PO SCH ×2 (09:00→14:00)
--- NOTE | 2023-06-30 11:57 | PN ---
Date of Progress Note: 06/30/2023 Subjective: The patient was admitted to the hospital with acute kidney injury secondary to cardioren al, over volume with hyperkalemia. The patient diuresed well, responding very well. The patient had lost almost pounds since admission. Physical Examination: Vital Signs: Blood pressure 143/62, pulse of 49, afebrile. The patient had good urine output of 280 0, negative of 1700. Chest: Clear to auscultation. Heart: S1, S2. Systolic murmur. Abdomen: Soft, nontender. Extremity: Trace edema. Neuro: Alert. No focality. Laboratory Data: Hemoglobin 9.9. Sodium 132, potassium 4.2, bicarb 25, BUN 105, creatinine 2.8, GFR 22, calcium 8.6, phosphorus 3.8, albumin 2.5, corrected calcium is 9.8. Current Medications: The patient on include Lovenox, ferrous sulfate, aspirin, atorvastatin 80, Tyle nol, Lasix 80 mg b.i.d., Zofran, levothyroxine, tramadol. Assessment And Plan: 1.Acute kidney injury secondary to cardiorenal. The patient continued to recover. I am going to co ntinue the patient on diuresis. I am going to increase his Lasix to be 3 times a day. The patient c leared from the Renal standpoint for discharge planning to follow up with Dr. Soler in 2-3 weeks. 2.Hypertension, controlled, optimal. Continue current treatment. Keep holding Entresto for the mercy e being. 3.Iron deficiency anemia. Continue oral iron. 4.Hyperkalemia, resolved. Please avoid Lokelma. Okay to use Veltassa if needed. 5.Hyponatremia secondary to dilutional. Continue diuresis. 6.Congestive heart failure, currently normal volume. Follow up with Cardiology. Continue current d iuresis as above. Time spent examining the patient [id number], reviewing data, lab and radiology, discussing the case with the call or contact centre team leader including nursing staff and hospitalist more than 35 minutes. LILIAM Voice ID: [id number] Report ID: [id number]
[2023-06-30 13:04] VITALS: BP 147/63; TEMP 97
--- NOTE | 2023-06-30 15:37 | P.DS ---
Admission Date: 06/24/23 Discharge Date: 06/30/23 Disposition: ROUTINE DISCHARGE Discharge Condition: FAIR Reason for Admission: Shortness of breath Brief History of Present Illness: Patient is an 83-year-old male with a past medical history significant for hypertension, hypothyroidism, hyperlipidemia, DM 2 who presented with complaint of shortness of breath that has been ongoing for 2 weeks. Patient reported that he has been having bilateral lower extremity\abdominal swelling and patient followed up with his PCP on June 18, 2023. He indicated that his Lasix dose was doubled and patient also had lab works, imaging and echocardiogram done. His BNP and creatinine were noted to be elevated. Patient was also noted to have liver cirrhosis on imaging and echocardiogram indicated an EF of 20% per family report. Patient followed up with his fence post driver due to worsening symptoms and patient was instructed to go to the ER. Patient reported associated signs and symptoms of cough and orthopnea. Patient decided to present to the hospital as directed by his fence post driver. He was admitted for further management. Hospital Course: Diagnosis Acute on chronic systolic CHF exacerbation NARA on CKD3 Transaminitis Anemia of chronic disease Hypothyroidism Hyperlipidemia Hypertension NIDDM2 Acute on chronic systolic CHF exacerbation CXR(06/24): Mild CHF vs volume overload. Now compensated. Venous u/s (06/25): No DVT Echo (06/18/23): with EF of 20% per family at OSH repeat echo 06/24 - EF: 51%, significant left ventricular conduction abnormality and it is functioning well, diastolic dysfunction, Mild MR, mild TR troponins mildly elevated x3. Likely secondary to demand ischemia BNP - [id number] Cardiology consulted plans to add third lead pacemaker for resynchronization therapy Dr. Galicia will follow up with patient in the office for arrangement for pacemaker lead placement. Was treated with IV Lasix and subsequently switched to oral Lasix. His home Lasix dose has been increased to 80 mg 3 times a day. His edema improved with treatment. NARA on CKD3 Nephrology consulted. GFR (08/26/2022): 50 family report h/o CKD3 Renal function was stable on Lasix therapy Liver Cirrhosis Transaminitis CT abdomen (06/18/23): indicated liver cirrhosis with some ascites. (per family) Abdominal u/s (06/24): Cholelithiasis. Borderline gallbladder wall thickening no pain, no tenderness, no symptoms of cholecystitis Anemia of chronic disease. H&H stable. Hypothyroidism. Continued home dose Synthroid. Hyperlipidemia. Continued home dose statin. Hypertension. Home medications resumed on discharge. NIDDM2. Managed with SSI Vital Signs/Physical Exam: Temp Pulse Resp BP Pulse Ox 97.0 F 50 16 147/63 H 91 06/30/23 12:00 06/30/23 12:00 06/30/23 12:00 06/30/23 12:00 06/30/23 12:00 General: Alert, In no apparent distress, Oriented x3 HEENT: Mucous membr. moist/pink Neck: Supple, JVD not distended Respiratory: Clear to auscultation bilaterally, Normal air movement Cardiovascular: No edema, Regular rate/rhythm, Normal S1 S2 Gastrointestinal: Normal bowel sounds, Soft and benign, Non-distended, No tenderness Integumentary: No rashes Neurological: Normal strength at 5/5 x4 extr Laboratory Data at Discharge: WBC 8.00 thou/uL (4.3-10.9) 06/28/23 02:40 Hgb 9.9 g/dL (13.6-17.9) L 06/28/23 02:40 Hct 29.7 % (39.6-49.0) L 06/28/23 02:40 Plt Count 172 thou/uL (152-406) 06/28/23 02:40 PT 17.4 SECONDS (9.5-12.5) H 06/24/23 15:30 INR 1.58 06/24/23 15:30 Sodium 132 mEq/L (136-145) L 06/30/23 02:28 Potassium 4.2 mEq/L (3.5-5.1) 06/30/23 02:28 BUN 105 mg/dL (7-18) H 06/30/23 02:28 Creatinine 2.81 mg/dL (0.70-1.30) H 06/30/23 02:28 Glucose 114 mg/dL (74-106) H 06/30/23 02:28 Uric Acid 9.6 mg/dL (3.5-7.2) H 06/26/23 03:53 Phosphorus 3.8 mg/dL (2.5-4.9) 06/30/23 02:28 Magnesium 2.0 mg/dL (1.6-2.4) 06/28/23 02:40 Total Bilirubin 0.6 mg/dL (0.2-1.0) 06/27/23 06:22 AST 65 U/L (15-37) H 06/27/23 06:22 ALT 76 U/L (16-61) H 06/27/23 06:22 Alkaline Phosphatase 262 U/L (45-117) H 06/27/23 06:22 Triglycerides 48 mg/dL (<150) 06/25/23 01:40 Cholesterol 84 mg/dL (<200) 06/25/23 01:40 HDL Cholesterol 41 mg/dL (40-60) 06/25/23 01:40 Cholesterol/HDL Ratio 2.05 06/25/23 01:40 Home Medications: Amlodipine Besylate 5 mg PO DAILY 08/26/22 Aspirin [Pinal Aspirin] 81 mg PO DAILY 08/26/22 Atorvastatin Calcium [Lipitor] 80 mg PO BEDTIME 08/26/22 Colesevelam HCl [Welchol] 2 tab PO DAILY 08/26/22 Darbepoetin Ciro in Polysorbat [Aranesp] 25 mcg IM SEECOM 08/26/22 Glimepiride 1 mg PO DAILY 08/26/22 Levothyroxine [Synthroid*] 112 mcg PO [id number] 08/26/22 traMADol HCL [Ultram*] 50 mg PO Q6HP PRN 08/26/22 Ascorbate Calcium [Vitamin C] 500 mg PO BID 06/24/23 Cholecalciferol (Vitamin D3) [Vitamin D3] 250 mcg PO BID 06/24/23 Ferrous Sulfate [Ferrous Sulfate*] 2 tab PO BID 06/24/23 Lidocaine/Aloe Vera [Aloe Vera Gel] 1 cap PO DAILY 06/24/23 Lisinopril [Zestril] 10 mg PO DAILY 06/24/23 Lutein/Zeaxanthin/Bilberry Ext [Vlxyeq-Lwunay-Zeriav 20Mg Sfgl] 2 cap PO DAILY 06/24/23 Pyridoxine [Vitamin B-6*] 100 mg PO DAILY 06/24/23 Sodium Zirconium Cyclosilicate [Lokelma] 1 packet PO DAILY 06/24/23 Vit C/E/Zn/Coppr/Lutein/Zeaxan [Preservision Areds 2 Chew Tab] 2 tab PO DAILY 06/24/23 Vitamin A 3,000 mcg PO DAILY 06/24/23 Vitamin E [Vitamin E*] 1 tab PO DAILY 06/24/23 Zinc Acetate [Wilzin] 2 tab PO DAILY 06/24/23 Furosemide [Lasix*] 80 mg PO TID #180 tab 06/30/23 New Medications: Furosemide [Lasix*] 80 mg PO TID #180 tab Diet: AHA Activity: Ad bety Followup: NONE,NONE [Primary Care Provider] - Deacon Cruz MD [ACTIVE - CAN ADMIT] - 1 Week Ced Galicia MD [ACTIVE - CAN ADMIT] - 1-2 Weeks Time spent managing pt's care (in minutes): 38
== END 2023-06-30 16:14 | disposition home or self-care (01) | DRG 291 ==
LOC: ER 14:57 → ERHOLD 16:58 → 2ND 19:14
PROVIDERS: ADMIT Hospitalist; ATTEND Internal Medicine
DX: I13.0 Hypertensive heart and chronic kidney disease with heart failure and stage 1 through stage 4 chronic kidney disease, or unspecified chronic kidney disease (principal); I50.23 Acute on chronic systolic (congestive) heart failure; E87.1 Hypo-osmolality and hyponatremia; N17.9 Acute kidney failure, unspecified; I24.8 Other forms of acute ischemic heart disease; R18.8 Other ascites; N18.32 Chronic kidney disease, stage 3b; E87.5 Hyperkalemia; D63.8 Anemia in other chronic diseases classified elsewhere; E78.00 Pure hypercholesterolemia, unspecified; D50.9 Iron deficiency anemia, unspecified; E03.9 Hypothyroidism, unspecified; E11.9 Type 2 diabetes mellitus without complications; K74.60 Unspecified cirrhosis of liver; K80.20 Calculus of gallbladder without cholecystitis without obstruction; I25.10 Atherosclerotic heart disease of native coronary artery without angina pectoris; Z88.1 Allergy status to other antibiotic agents; Z95.2 Presence of prosthetic heart valve; Z95.1 Presence of aortocoronary bypass graft; Z79.82 Long term (current) use of aspirin; Z79.02 Long term (current) use of antithrombotics/antiplatelets; Z79.890 Hormone replacement therapy; Z91.048 Other nonmedicinal substance allergy status; Z79.899 Other long term (current) drug therapy
CPT/HCPCS: 36415; 71045; 76700; 80048; 80053; 80061; 80069; 80076; 81001; 82570; 82947; 83036; 83735; 83880; 83935; 84100; 84132; 84156; 84300; 84443; 84484; 84550; 85025; 85610; 93005; 93306; 93970; 96374; 99285; J1650; J1815; J1940; J7030

== ENCOUNTER 2023-08-07 19:06 | Observation (INO) | payer OTHER ==
--- OUTSIDE RECORDS SUMMARY | 2023-08-07 19:13 | XMS REPORT | Continuity of Care Document ---
:1940 Author Organization [facility] t Address [address] [place] [address] Care Team Providers Name Role Phone CHAO ZEPEDA Primary Care Physician Unavailable LEAH FRY Attending Clinician Unavailable Ced Galicia Attending Clinician Unavailable DR CHAO ZEPEDA Attending Clinician Unavailable [id number] Attending Clinician Unavailable [id number] Attending Clinician Unavailable DIOR BUSCH Attending Clinician Unavailable James Attending Clinician Unavailable DIOR VALENTE Attending Clinician Unavailable Jasson_Kee Attending Clinician Unavailable MARYCHUY HUTCHINS Attending Clinician Unavailable Gil Attending Clinician Unavailable IHDE_G Attending Clinician Unavailable Shield Attending Clinician Unavailable DR CHAO ZEPEDA Admitting Clinician Unavailable James Admitting Clinician Unavailable Christina Admitting Clinician Unavailable Gil Admitting Clinician Unavailable IHDE_G Admitting Clinician Unavailable Shield Admitting Clinician Unavailable Payers Payer Name Policy Type Policy Number Effective Date Expiration Date S libia [facility] [id number] 2021 (MEDICARE 00:00:00 REPLACEMENT/ADVANTA GE - PPO) [employer] (MEDICARE [id number] REPLACEMENT/ADVANTA GE - PPO) Problems Condition Condition [...] Group Dyspnea on Dyspnea on Problem Active [facility] exertion Exertion 2-20 da 00:00: Medical [...] Accommodat ion ion Hypothyroi Hypothyroi Problem Active [facility] dism dism 1-25 da 00:00: Medical 00 Group Iron Iron Problem Active [facility] deficiency Deficiency 1-25 da anemia Anemia 00:00: Medical 00 Group Benign Benign Problem Active [facility] hypertensi Hypertensi 7-19 da on on 00:00: Medical 00 Group Stented Stented Problem Active [facility] coronary Coronary 9- da artery Artery 00:00: Medical 00 Group 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 Medical zoster Zoster Group Diabetes Diabetes Problem Active [facility] mellitus Mellitus da [facility] Group Type 2 Type 2 Problem Active [facility] diabetes Diabetes da mellitus [facility] Medica l Group 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 Me dical [...] Problem Active [facility] index Index da 2529 - - Medical overweight Overweight Gr oup [...] M [facility] in in da adulthood Adulthood Medi charles with body with Body Grou p mass [...] Date Clinician acetamin DA Active [place] [facility]ASH [facility] Clear 00:00: Gonzalez 00 [facility] phenylpr DA Active MO RASH 0 [facility] opanolam 3-11 Clear ine 00:00: Gonzalez 00 [facility] acetamin DA Active MO 0 [facility] ophen 3-11 Clear 00:00: Gonzalez 00 [facility] phenylpr DA Active MO 0 [facility] opanolam 3-11 Clear ine 00:00: Gonzalez [facility] acetamin DA Active MO 2021-0 [facility] ophen 3-08 Clear 00:00: Gonzalez 00 [facility] phenylpr DA Active MO 2020-0 [facility] opanolam 3-08 Clear ine 00:00: Gonzalze [facility] acetamin DA Active MO RASH 2020-0 [facility] ophen 3-08 Clear 00:00: Gonzalez 00 [facility] phenylpr DA Active MO RASH 2020-0 [facility] opanolam 3-08 Clear ine 00:00: Gonzalez [facility] TETRACYC DA Active UNKNOWN [place] [facility] ADHESIVE Allergy Active Moderate Rash [facility] TAPE to da substanc Medical e Group TETRACYC Allergy Active Moderate Rash [facility] [facility] LINES to da substan Medical e Group Social History Smoking Status Start Date Stop Date Source Never Smoker [facility] Medications Ordered Filled Start [...] topical 2 % da ointment ointment topical [facility] charles APPLY A APPLY A ointment Group [...] Name Influenza vaccine, Influenza vaccine, 2022-10-02 Completed Dmitry quadrivalent, quadrivalent, 00:00:00 Medical Group adjuvanted - ML adjuvanted - ML Influenza vaccine, Influenza vaccine, 2022-10-02 Completed Dmitry quadrivalent, quadrivalent, 00:00:00 Medical Group adjuvanted - ML adjuvanted - ML Influenza vaccine, Influenza vaccine, 2022-10-02 Completed Dmitry quadrivalent, quadrivalent, 00:00:00 Medical Group adjuvanted - [...] adjuvanted - ML pneumococcal pneumococcal 2011-11-23 Completed [facility] polysaccharide PPV23 polysaccharide PPV23 00:00:00 Medical Group pneumococcal pneumococcal 2011-11-23 Completed [facility] polysaccharide PPV23 polysaccharide PPV23 00:00:00 Medical Group pneumococcal pneumococcal 2011-11-23 Completed [facility] polysaccharide PPV23 polysaccharide PPV23 00:00:00 Medical Group pneumococcal pneumococcal 2011-11-23 Completed [facility] polysaccharide PPV23 polysaccharide PPV23 00:00:00 Medical Group pneumococcal pneumococcal 2011-11-23 Completed [facility] polysaccharide PPV23 polysaccharide PPV23 00:00:00 Medical Group pneumococcal pneumococcal 2011-11-23 Completed [facility] polysaccharide PPV23 polysaccharide PPV23 00:00:00 Medical Group pneumococcal pneumococcal 2009-11-23 Completed [facility] conjugate PCV 13 conjugate PCV 13 00:00:00 Me dical Group pneumococcal pneumococcal 2009-11-23 Completed [facility] conjugate PCV 13 conjugate PCV 13 00:00:00 Me dical Group pneumococcal pneumococcal 2009-11-23 Completed [facility] conjugate PCV 13 conjugate PCV 13 00:00:00 Me dical Group pneumococcal pneumococcal 2009-11-23 Completed [facility] conjugate PCV 13 conjugate PCV 13 00:00:00 Me dical Group pneumococcal pneumococcal 2009-11-23 Completed [facility] conjugate PCV 13 conjugate PCV 13 00:00:00 Me dical Group pneumococcal pneumococcal 2009-11-23 Completed [facility] conjugate PCV 13 conjugate PCV 13 00:00:00 Me dical Group Vital Signs Vital Name Observation Time Observation Value Comments Source BP Diastolic 2023-06-18 00:00:00 75 mm[Hg] [facility] Height 2023-06-18 00:00:00 68 [[facility]_i[facility] BMI (Body Mass 2023-06-18 00:00:00 27.9 kg/m2 [facility] Index) Group BP Systolic 2023-06-18 00:00:00 123 mm[Hg] [facility] Body Weight 2023-06-18 00:00:00 2932.8 [oz_av] [facility] BP Diastolic 2023-05-11 00:00:00 73 mm[Hg] [facility] Height 2023-05-11 00:00:00 68 [in_i] [facility] BMI (Body Mass 2023-05-11 00:00:00 25.5 kg/m2 [facility] Medical Index) Group BP Systolic 2023-05-11 00:00:00 158 mm[Hg] [facility] Body Weight 2023-05-11 00:00:00 2688 [oz_av] [facility] BP Diastolic 2023-02-09 00:00:00 75 mm[Hg] [facility] Height 2023-02-09 00:00:00 68 [in_i] [facility] BMI (Body Mass 2023-02-09 00:00:00 25.6 kg/m2 [facility] Medical Index) Group BP Systolic 2023-02-09 00:00:00 178 mm[Hg] [facility] Body Weight 2023-02-09 00:00:00 2692 [oz_av] [facility] BP Diastolic 2022-09-09 00:00:00 71 mm[Hg] [facility] Height 2022-09-09 00:00:00 68 [in_i] [facility] BMI (Body Mass 2022-09-09 00:00:00 24.6 kg/m2 [facility] Medical Index) Group BP Systolic 2022-09-09 00:00:00 151 mm[Hg] [facility] Body Weight 2022-09-09 00:00:00 161.7 [lb_av] [facility] BP Diastolic 2022-08-27 00:00:00 57 mm[Hg] [facility] Height 2022-08-27 00:00:00 68 [in_i] [facility] BMI (Body Mass 2022-08-27 00:00:00 24.9 kg/m2 [facility] Medical Index) Group BP Systolic 2022-08-27 00:00:00 146 mm[Hg] [facility] Body Weight 2022-08-27 00:00:00 2622.4 [oz_av] [facility] BP Diastolic 2022-07-30 00:00:00 81 mm[Hg] [facility] Height 2022-07-30 00:00:00 68 [in_i] [facility] BMI (Body Mass 2022-07-30 00:00:00 24.5 kg/m2 [facility] Index) Group BP Systolic 2022-07-30 00:00:00 160 mm[Hg] [facility] Body Weight 2022-07-30 00:00:00 2580.8 [oz_av] [facility] BP Diastolic 2022-07-16 00:00:00 61 mm[Hg] [facility] Height 2022-07-16 00:00:00 68 [in_i] [facility] BMI (Body Mass 2022-07-16 00:00:00 24.5 kg/m2 [facility] Index) Group BP Systolic 2022-07-16 00:00:00 134 mm[Hg] [facility] Body Weight 2022-07-16 00:00:00 2577.6 [oz_av] [facility] BP Diastolic 2022-07-02 00:00:00 77 mm[Hg] [facility] Height 2022-07-02 00:00:00 68 [in_i] [facility] BMI (Body Mass 2022-07-02 00:00:00 25.2 kg/m2 [facility] Index) Group BP Systolic 2022-07-02 00:00:00 160 mm[Hg] [facility] Body Weight 2022-07-02 00:00:00 2652.8 [oz_av] [facility] BP Diastolic 2022-06-25 00:00:00 79 mm[Hg] [facility] Height 2022-06-25 00:00:00 68 [in_i] [facility] BMI (Body Mass 2022-06-25 00:00:00 25.8 kg/m2 [facility] Index) Group BP Systolic 2022-06-25 00:00:00 170 mm[Hg] [facility] Body Weight 2022-06-25 00:00:00 2720 [oz_av] [facility] BP Diastolic 2022-06-18 00:00:00 71 mm[Hg] [facility] Height 2022-06-18 00:00:00 68 [in_i] [facility] BMI (Body Mass 2022-06-18 00:00:00 25.1 kg/m2 [facility] Index) Group BP Systolic 2022-06-18 00:00:00 171 mm[Hg] [facility] Body Weight 2022-06-18 00:00:00 2640 [oz_av] [facility] BP Diastolic 2022-06-04 00:00:00 80 mm[Hg] [facility] Height 2022-06-04 00:00:00 68 [in_i] [facility] BMI (Body Mass 2022-06-04 00:00:00 24 kg/m2 [facility] Index) Group BP Systolic 2022-06-04 00:00:00 150 mm[Hg] [facility] Body Weight 2022-06-04 00:00:00 2530 [oz_av] [facility] BP Diastolic 2022-05-28 00:00:00 81 mm[Hg] [facility] Height 2022-05-28 00:00:00 68 [in_i] [facility] BMI (Body Mass 2022-05-28 00:00:00 25.1 kg/m2 [facility] Index) Group BP Systolic 2022-05-28 00:00:00 136 mm[Hg] [facility] Body Weight 2022-05-28 00:00:00 165 [lb_av] [facility] BP Diastolic 2022-03-04 00:00:00 80 mm[Hg] [facility] Height 2022-03-04 00:00:00 68 [in_i] [facility] BMI (Body Mass 2022-03-04 00:00:00 24.6 kg/m2 [facility] Index) Group BP Systolic 2022-03-04 00:00:00 134 mm[Hg] [facility] Body Weight 2022-03-04 00:00:00 161.5 [lb_av] [facility] BP Diastolic 2022-02-04 00:00:00 74 mm[Hg] [facility] Height 2022-02-04 00:00:00 68 [in_i] [facility] BMI (Body Mass 2022-02-04 00:00:00 24.4 kg/m2 [facility] BP Systolic 2022-02-04 00:00:00 137 mm[Hg] [facility] Body Weight 2022-02-04 00:00:00 2571.2 [oz_av] [facility] BP Diastolic 2021-12-12 00:00:00 73 mm[Hg] [facility] Height 2021-12-12 00:00:00 68 [in_i] [facility] BMI (Body Mass 2021-12-12 00:00:00 25 kg/m2 [facility]) Group BP Systolic 2021-12-12 00:00:00 135 mm[Hg] [facility] Body Weight 2021-12-12 00:00:00 2630 [oz_av] [facility] BP Diastolic 2021-09-09 00:00:00 65 mm[Hg] [facility] Height 2021-09-09 00:00:00 68 [in_i] [facility] BMI (Body Mass 2021-09-09 00:00:00 24 kg/m2 [facility] Index) Group BP Systolic 2021-09-09 00:00:00 148 mm[Hg] [facility] Body Weight 2021-09-09 00:00:00 2528 [oz_av] [facility] BP Diastolic 2021-09-03 00:00:00 68 mm[Hg] [facility] Height 2021-09-03 00:00:00 68 [in_i] [facility] BMI (Body Mass 2021-09-03 00:00:00 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) Group BP Systolic 2021-09-03 00:00:00 143 mm[Hg] [facility] Body Weight 2021-09-03 00:00:00 156.5 [lb_av] [facility] BP Diastolic 2021-07-18 00:00:00 70 mm[Hg] [facility] Height 2021-07-18 00:00:00 68 [in_i] [facility] BMI (Body Mass 2021-07-18 00:00:00 23.9 kg/m2 [facility] Index) Group BP Systolic 2021-07-18 00:00:00 [...] BMI (Body Mass 2021-06-11 00:00:00 23.7 kg/m2 [facility] Index) Group BP Diastolic 2021-02-28 00:00:00 72 mm[Hg] [facility] Height 2021-02-28 00:00:00 68 [in_i] [facility] BMI (Body Mass 2021-02-28 00:00:00 26.2 kg/m2 [facility] Index) Group BP Systolic 2021-02-28 00:00:00 130 mm[Hg] [facility] Body Weight 2021-02-28 00:00:00 172 [lb_av] [facility] BP Diastolic 2021-02-14 00:00:00 70 mm[Hg] [facility] Height 2021-02-14 00:00:00 68 [in_i] [facility] BMI (Body Mass 2021-02-14 00:00:00 26.2 kg/m2 [facility] Index) Group BP Systolic 2021-02-14 00:00:00 138 mm[Hg] [facility] Body Weight 2021-02-14 00:00:00 172.5 [lb_av] [facility] BP Diastolic 2020-12-29 00:00:00 75 mm[Hg] [facility] Height 2020-12-29 00:00:00 68 [in_i] [facility] BMI (Body Mass 2020-12-29 00:00:00 25 kg/m2 [facility] Index) Group BP Systolic 2020-12-29 00:00:00 142 mm[Hg] [facility] Body Weight 2020-12-29 00:00:00 2633 [oz_av] [facility] BP Diastolic 2020-12-11 00:00:00 64 mm[Hg] [facility] Height 2020-12-11 00:00:00 68 [in_i] [facility] BMI (Body Mass 2020-12-11 00:00:00 25.5 kg/m2 [facility] Index) Group BP Systolic 2020-12-11 00:00:00 120 mm[Hg] [facility] Body Weight 2020-12-11 00:00:00 168 [lb_av] [facility] BP Diastolic 2020-12-10 00:00:00 62 mm[Hg] [facility] Height 2020-12-10 00:00:00 68 [in_i] [facility] BMI (Body Mass 2020-12-10 00:00:00 25.5 kg/m2 [facility] Index) Group BP Systolic 2020-12-10 00:00:00 112 mm[Hg] [facility] Body Weight 2020-12-10 00:00:00 2688 [oz_av] [facility] BP Diastolic 2020-11-06 00:00:00 72 mm[Hg] [facility] Height 2020-11-06 00:00:00 68 [in_i] [facility] BMI (Body Mass 2020-11-06 00:00:00 27.9 kg/m2 [facility] Index) Group BP Systolic 2020-11-06 00:00:00 128 mm[Hg] [facility] Body Weight 2020-11-06 00:00:00 183.7 [lb_av] [facility] BP Diastolic 2020-09-18 00:00:00 80 mm[Hg] [facility] Height 2020-09-18 00:00:00 68 [in_i] [facility] BMI (Body Mass 2020-09-18 00:00:00 28.5 kg/m2 [facility] Index) Group BP Systolic 2020-09-18 00:00:00 132 mm[Hg] [facility] Body Weight 2020-09-18 00:00:00 187.5 [lb_av] [facility] BP Diastolic 2020-09-04 00:00:00 78 mm[Hg] [facility] Height 2020-09-04 00:00:00 68 [in_i] [facility] BMI (Body Mass 2020-09-04 00:00:00 27.2 kg/m2 [facility] Index) Group BP Systolic 2020-09-04 00:00:00 133 mm[Hg] [facility] Body Weight 2020-09-04 00:00:00 2867 [oz_av] [facility] Procedures Procedure Date / Time Performing Clinician Source Performed US, echocardiogram 2023-06-18 00:00:00 [facility] US, abdomen, complete 2023-06-18 00:00:00 [facility] XR, abdomen 2023-06-18 00:00:00 [facility] ECG WITH INTERPRETATION 2023-06-18 00:00:00 [facility] 12 LEADS Group US, scrotum 2023-06-18 00:00:00 [facility] XR, chest, 2 view 2022-07-16 00:00:00 [facility] XR, chest, 2 view 2022-06-25 00:00:00 [facility] unlisted imaging order 2022-05-19 00:00:00 [facility] unlisted imaging order 2022-03-04 00:00:00 [facility] XR, chest, 2 view 2021-09-03 00:00:00 [facility] unlisted imaging order 2021-07-18 00:00:00 [facility] [id number] 2021-01-30 00:00:00 ARIADNA Darden [facility] Inguinal Herniorrhaphy 2020-11-26 00:00:00 [facility] Plan of Care Planned Activity Planned Date Details Comments Source Diagnostic Test 2023-06-18 CMP, serum or plasma Steve francis Medical Pending 00:00:00 [code = CMP, serum Group or plasma] Diagnostic Test 2023-06-18 BNP (B-type [facility] Pending 00:00:00 natriuretic Group peptide), serum or plasma [code = BNP (B-type natriuretic peptide), serum or plasma] Diagnostic Test 2023-06-18 PSA, total + free, [facility] Pending 00:00:00 serum or plasma Group [...] Future Appointment 2023-08-12 Mervin Virk, [address] [facility] 14:15:00 [facility]; Group [address], [place] [address] Instructions [facility] Encounters Start End Encounter Admission Attending Care Care Encounter Source Date/Time Date/Time Type Type Clinicians Facility Department ID 2023-06-25 Inpatient JOSE FRY [facility] [id number] [facility] 10:00:00 LEAH [id number] [facility] 2021-01-25 Inpatient Grayson, HCACL HC[facility] [id number] [facility] 17:02:30 Ced 06 [facility] 2023-08-04 2023-08-04 Outpatient [facility] [id number] [place] 07:52:00 07:52:00 [id number] Cam po [id number] [facility] 2023-07-06 2023-07-06 Outpatient CHAO [facility] [id number] [place] 10:21:00 10:21:00 [id number] [facility] [id number] [facility] 2023-06-24 2023-06-24 Outpatient JOSE BUSCH [facility] [id number] [facility] 11:46:00 11:46:00 DIOR -[id number] [facility] 2023-06-19 2023-06-19 Outpatient ANISHA FRY [facility] [id number] [facility] 11:48:00 11:48:00 LEAH -[id number] [facility] 2023-06-18 2023-06-18 Outpatient JOSE FRY [facility] [id number] [facility] 14:38:00 14:38:00 LEAH -[id number] [facility] 2023-06-18 2023-06-18 Outpatient K[facility]ela[facility] [id number] -2022 [facility] 00:00:00 00:00:00 0727 da Medical [facility] 2023-06-18 2023-06-18 Outpatient Koudela_A [facility] [id number] -2022 [facility] 00:00:00 00:00:00 0802 da Medical [facility] 2023-06-18 2023-06-18 Outpatient Koudela_A [facility] [id number] -2022 [facility] 00:00:00 00:00:00 0815 da [facility] 2023-06-18 2023-06-18 [facility] [place] - [id number] [facility] 00:00:00 00:00:00 Discovery Ang da PA-C: 600 [facility] Bird In Hand, [facility] [address], [facility] [place] [address] , Ph. 2023-06-01 2023-06-01 Outpatient JOSE VALENTE [facility] [id number] [facility] 09:36:00 09:36:00 DIOR [id number] da [facility] 2023-05-11 2023-05-11 Outpatient Koudela[facility] [id number] -2022 [facility] 00:00:00 00:00:00 0619 da Medical Group 2023-05-11 2023-05-11 Outpatient Koudela_A [facility] [id number] -2022 [facility] 00:00:00 00:00:00 0622 da [facility] Group 2023-05-11 2023-05-11 Leah MMG [place] - [id number] M [facility] 00:00:00 00:00:00 Discovery karina Fry PA-C: [address] [place] [phone] , Ph. 2023-02-11 2023-02-11 Outpatient JOSE VALENTE [facility] [id number] [facility] 10:47:00 10:47:00 DIOR [id number] [facility] 2023-02-09 2023-02-09 Outpatient Zuniga_F [facility] [id number] 2022 [facility] 00:00:00 00:00:00 0320 da Medical [facility] 2023-02-09 2023-02-09 Mervin MM [place] - [id number] [facility] 00:00:00 00:00:00 Mary Ann Galeano MD: [address] [place] [id number] , Ph. 2022-12-17 2022-12-17 Outpatient JOSE HUTCHINS [facility] [id number] [facility] 09:51:00 09:51:00 MARYCHUY -[id number] [facility] 2022-10-23 2022-10-23 Outpatient Koudela_A [facility] [id number] -2022 [facility] 00:00:00 00:00:00 0309 da Medical Group 2022-10-22 2022-10-22 Outpatient ANISHA VALENTE, [facility] [id number] [facility] 10:23:00 10:23:00 DIOR [id number] [facility] 2022-09-09 2022-09-09 Outpatient Koudela_A MM[facility] [id number] [facility] 00:00:00 00:00:00 1018 da Medical Group 2022-09-09 2022-09-09 LISA Wilson [place] - [id number] [facility] 00:00:00 00:00:00 : Ninfa [facility] Group [address], [facility], Otolaryngol [facility] [phone] , Ph. 2022-08-27 2022-08-27 Outpatient [facility]ela[facility] [id number] -2021 [place] 00:00:00 00:00:00 1005 Medical Group 2022-08-27 2022-08-27 Leah [place]TE[place] - [id number] M atagor 00:00:00 00:00:00 Discovery karina Fry PA-C: 600 [facility] [address], [facility] [place] [address] , Ph. 2022-07-30 2022-07-30 Outpatient Koudela[facility] [id number] -2021 [place] 00:00:00 00:00:00 0907 da Medical Group 2022-07-30 2022-07-30 Leah [place] - [id number] M at[facility] 00:00:00 00:00:00 Discovery Ang da PA-C: 600 [facility] [address], [facility] [place] [address] , Ph. 2022-07-16 2022-07-16 Outpatient Koudela[facility] [id number] -2021 [facility] 00:00:00 00:00:00 0824 Medical Group 2022-07-16 2022-07-16 Leah [place] - [id number] M [facility] 00:00:00 00:00:00 Discovery Ang da PA-C: 600 [facility] [address], [facility] [place] [address] , Ph. 2022-07-02 2022-07-02 [place] [id number] -2021 [place] 00:00:00 00:00:00 0810 Medical Group 2022-07-02 2022-07-02 Leah [facility] [place] - [id number] M at[facility]or 00:00:00 00:00:00 Discovery karina Fry PA-C: [address] [place] [address] , Ph. 2022-06-25 2022-06-25 [place] [id number] -2021 [place] 00:00:00 00:00:00 0803 [facility] 2022-06-25 2022-06-25 Leah [facility] [place] - [id number] M at[facility]or 00:00:00 00:00:00 Discovery karina Fry PA-C: [address] [place] [address] , Ph. 2022-06-18 2022-06-18 Outpatient Hawkins_M MM[facility] [id number] -2021 [place] 00:00:00 00:00:00 0727 [facility] 2022-06-18 2022-06-18 Melody [facility] [place] - [id number] [facility] 00:00:00 00:00:00 Discovery Juanis VirkP-C: [address] [place] [address] , Ph. 2022-06-04 2022-06-04 [place] [id number] -2021 [place] 11:18:00 11:18:00 0713 [facility] 2022-06-04 2022-06-04 Mervin MM [place] - [id number] [facility] 00:00:00 00:00:00 Mary Ann Galeano [facility] MD: [address] [place] [address] [place] [address] , Ph. 2022-05-28 2022-05-28 Outpatient Hawkins_M MMG [facility]G [id number] -2021 [place] 02:04:00 02:04:00 0706 Medical Group 2022-05-28 2022-05-28 Blake Jaguar [place] - [id number] [facility] 00:00:00 00:00:00 MD: Ninfa [facility] [address], [facility], Otolaryngol [place] ogroopa-LUIS [address] , Ph. 2022-05-27 2022-05-27 [place] [id number] -2021 [place] 10:06:00 10:06:00 0705 Medical [facility] 2022-03-04 2022-03-04 Outpatient Hawkins_M [facility] MMG [id number] -2021 [place] 12:25:00 12:25:00 0412 Medical Group 2022-03-04 2022-03-04 Outpatient Hawkins_M MMG MMG [id number] -2021 [place] 12:25:00 12:25:00 0413 Medical Group 2022-03-04 2022-03-04 Blake Jaguar [facility] - [id number] [place] 00:00:00 00:00:00 MD: Ninfa [facility] [address], [facility] [address] , Ph. 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 2021-12-12 2021-12-12 Outpatient Zuniga_F [facility] [id number]- 2021 [place] 02:38:00 02:38:00 0120 da [facility] 2021-12-12 2021-12-12 Mervin [facility] - [id number] [place] 00:00:00 00:00:00 Mary Ann Galeano MD: Ninfa [address] [address] , Ph. 2021-09-09 2021-09-09 Outpatient Zuniga_F [facility] [id number]- 2020 [place] 12:17:00 12:17:00 1018 Medical Group 2021-09-09 2021-09-09 Outpatient Zuniga_F [facility] [id number]- 2020 [place] 08:10:00 08:10:00 1222 Medical [facility] 2021-09-09 2021-09-09 Leah [facility] - [id number] M [place] 00:00:00 00:00:00 Discovery karina Fry PA-C: [address] [facility] [address] [address] , Ph. 2021-09-03 2021-09-03 Outpatient Zuniga_F [facility] [id number] [place] 02:40:00 02:40:00 1012 Medical Group 2021-09-03 2021-09-03 Blake Walsh [facility] - [id number] [place] 00:00:00 00:00:00 : Ninfa Weaver [address], Otolaryngol [place] umuLUIS [address] , Ph. 2021-07-18 2021-07-18 Outpatient Zuniga_F [facility] [id number]- 2020 [place] 11:51:00 11:51:00 0826 Medical [facility] 2021-07-182021-07-18 Outpatient Zuniga_F MMG [facility] [id number]- 2020 [place] 11:51:00 11:51:00 0827 da [facility] 2021-07-18 2021-07-18 Outpatient Zuniga_F MMG [facility] [id number]- 2020 [place] 11:51:00 11:51:00 0907 da [facility] 2021-07-18 2021-07-18 Blake Walsh [facility] - [id number] [place] 00:00:00 00:00:00 MD: Ninfa Weaver [facility] [address], [facility], Otolaryngol [facility] [address] , Ph. 2021-06-12 2021-06-12 Outpatient [facility] [id number]- 2020 [place] 11:59:00 11:59:00 0721 da [facility] 2021-06-11 2021-06-11 Outpatient Zuniga_F MMG [facility] [id number]- 2020 [place] 02:16:00 02:16:00 0720 da [facility] 2021-06-11 2021-06-11 Mervin [facility] - [id number] [place] 00:00:00 00:00:00 Mary Ann Galeano Medical MD: [address] [place] [address] Family [address], [place] [address] , Ph. 2021-04-26 2021-04-26 Outpatient IHDE_G MMG [facility] [id number] 021 [place] 03:31:00 03:31:00 0604 [facility] 2021-02-28 2021-02-28 Outpatient IHDE_[place] [id number] [place] 10:10:00 10:10:00 0408 [facility] 2021-02-28 2021-02-28 Collin [facility] - [id number] M at[place]or 00:00:00 00:00:00 Johnathan Márquez MD: Medical Medica l [address] [facility] [address], [place] [address] , Ph. [phone] 2021-02-27 2021-02-27 [place]DE_[place] [id number] [place] 04:20:00 04:20:00 0407 da [facility] 2021-02-14 2021-02-14 Outpatient IHDE_G MMG MM [id number] [place] 12:34:00 12:34:00 0325 da [facility] 2021-02-14 2021-02-[facility] [place] [facility] [id number] [facility] [place] 00:00:00 00:00:00 Johnathan Márquez MD: Medical Medica leslie [address] [place] [address] [address], [place] [address] , Ph. [phone] 2021-01-18 2021-01-18 [place] [id number]- 2020 [place] 11:15:00 11:15:00 0324 da [facility] 2020-12-31 2020-12-31 [place] [id number]- 2020 [place] 10:45:00 10:45:00 0208 [facility] 2020-12-31 2020-12-31 Outpatient Zuniga_F MMG MMG [id number]- 2020 [place] 10:45:00 10:45:00 0212 da [facility] 2020-12-30 2020-12-30 [place] [id number]- 2020 [place] 01:06:00 01:06:00 0207 da [facility] 2020-12-29 2020-12-29 Outpatient Zuniga_F MMG MMG [id number]- 2020 [place] 11:57:00 11:57:00 0206 da [facility] 2020-12-29 2020-12-29 Mervin [facility] [place] - [id number] [place] 00:00:00 00:00:00 Mary Ann Galeano MD: [address] [place] [address] [address], [place] [address] , Ph. 2020-12-11 2020-12-11 Outpatient Zuniga_F MMG MMG [id number]- 2020 [place] 11:29:00 11:29:00 0119 da [facility] 2020-12-11 2020-12-11 Outpatient Zuniga_F MMG MMG [id number]- 2020 [place] 11:29:00 11:29:00 0120 da [facility] 2020-12-11 2020-12-11 Collin MM [place] - [id number] M [place] 00:00:00 00:00:00 Johnathna Márquez MD: Medical Medica leslie [address] [facility] [address], [place] [address] , Ph. [phone] 2020-12-10 2020-12-10 Outpatient Zuniga_F MMG MMG [id number]- 2020 [place] 10:16:00 10:16:00 0118 da [facility] 2020-12-10 2020-12-10 Mervin MM [place] - [id number] [place] 00:00:00 00:00:00 Mary Ann Galeano MD: [address] [place] [address] [address], [place] [address] , Ph. 2020-11-19 2020-11-19 Outpatient IHDE_G MMG MMG [id number] [place] 10:38:00 10:38:00 0108 [facility] 2020-11-19 2020-11-19 Outpatient IHDE_G MMG MMG [id number] [place] 10:38:00 10:38:00 0111 da [facility] 2020-11-19 2020-11-19 Outpatient IHDE_G MMG MMG [id number] [place] 10:38:00 10:38:00 1228 [facility] 2020-11-06 2020-11-06 Outpatient IHDE_G MMG MMG [id number] [id number] [place] 11:06:00 11:06:00 1215 da [facility] 2020-11-06 2020-11-06 Outpatient IHDE_G MMG MMG [id number] [place] 11:06:00 11:06:00 1216 [facility] 2020-11-06 2020-11-06 Collin [facility] - [id number] M [place] 00:00:00 00:00:00 Johnathan Márquez MD: Medical Medica l [address] [place] [address] [address], [place] [address] , Ph. [phone] 2020-10-10 2020-10-10 Outpatient IHDE_G MMG MMG [id number] [place] 02:40:00 02:40:00 1118 da [facility] 2020-10-10 2020-10-10 Outpatient IHDE_G MMG MMG [id number] [place] 02:40:00 02:40:00 1214 [facility] 2020-09-19 2020-09-19 Outpatient IHDE_G MMG MMG [id number] [place] 01:36:00 01:36:00 1028 [facility] 2020-09-18 2020-09-18 Outpatient IHDE_G MMG MMG [id number] [place] 11:16:00 11:16:00 1027 [facility] 2020-09-18 2020-09-18 Collin [facility] - [id number] M [place] 00:00:00 00:00:00 Johnathan Márquez MD: Medical Medica [address], [place] [address] , Ph. [phone] 2020-09-14 2020-09-14 Outpatient IHDE_G MMG MMG [id number] [place] 09:43:00 09:43:00 1023 da [facility] 2020-09-14 2020-09-14 Outpatient IHDE_G MMG MMG [id number] [place] 09:43:00 09:43:00 1026 da [facility] 2020-09-04 2020-09-04 Outpatient Shield MMG MMG [id number] [place] 03:25:00 03:25:00 1013 [facility] 2020-09-04 2020-09-04 Outpatient Shield MMG MMG [id number] [place] 03:25:00 03:25:00 1014 Medical [facility] 2020-09-04 2020-09-04 Mervin MM [place] - [id number] [place] 00:00:00 00:00:00 Toan Moe Medical Medical MD: [address] [facility] [address], [place] [address] , Ph. 2019-11-02 2019-11-02 Outpatient MHSW CAR [id number] 12:36:00 12:36:00 2018-05-12 2018-05-12 [facility]patient [facility] [id number] [place] 10:44:00 10:44:00 0904 Medical [facility] 2018-05-12 2018-05-12 Outpatient Shield MMG [facility] [id number] [place] 10:44:00 10:44:00 1012 [facility] Results Test Description Test Time Test Comments Results Result Comments Source parathyroid intact (PTH) 2023-06-02 09:14:00 Test Item Value Reference Range Interpretation Comme nts parathyroid intact (PTH) (test code = parathyroid intact (PTH)) 26 pg/mL 15-65 [facility]25-Hydroxyvitamin D3+25-Hydroxyvitamin D2 [Mass/volume] in Serum or [id number] 13:25:00 Test Item Value Reference Range Interpretation Comments vit D 25 hydroxy (test code = vit D 25 > 60 6.4-49.5 H hydroxy) [facility]/Creatinine [Mass Ratio] in [id number] 13:18:00 Test Item Value Reference Range Interpretation Comments urine total protein (test code = 104.5 mg/dL urine total protein) creatinine, urine random (test 67.5 mg/dL 39-259 code = creatinine, urine random) protein/creatinine ratio (test 1.5 mg/day 0-3.5 code = protein/creatinine ratio) [facility] Hospitalrenal function [id number] 13:14:00 Test Item Value Reference Range Interpretation [...] (test code = albumin) 3.8 g/dL 3.5-5.2 [facility] Mcijwihiczqbtwe6105-02-34 13:00:00 Test Item Value Reference Range Interpretation [...] (test no code = urine culture added?) [facility] HospitalXuqsqnqhunxmdtl6605-23-53 13:00:00 Test Item Value Reference Range Interpretation [...] (test no code = urine culture added?) [facility] Hospitalhemoglobin [id number] 12:59:00 Test Item Value Reference Range Interpretation Comments Hemoglobin A1c/Hemoglobin.total in 6.3 % 4.0-6.0 H Blood (test code = 4548-4) [facility] Ag [Presence] in Respiratory specimen by Rapid gieevouqsyg1704-91-14 11:45:00 Test Item Value Reference Range Interpretation Comments SARS-CoV - 2 (test code = SARS-CoV - positive 2) [facility] Ag [Presence] in Respiratory specimen by Rapid krtneiswmlo3296-26-47 11:45:00 Test Item Value Reference Range Interpretation Comments SARS-CoV - 2 (test code = SARS-CoV - positive 2) [facility] Ag [Presence] in Respiratory specimen by Rapid bjoyhtyplae6494-60-32 11:45:00 Test Item Value Reference Range Interpretation Comments SARS-CoV - 2 (test code = SARS-CoV - positive 2) [facility] Ag [Presence] in Respiratory specimen by Rapid vqkeclgyvwn8334-03-75 11:45:00 Test Item Value Reference Range Interpretation Comments SARS-CoV - 2 (test code = SARS-CoV - positive 2) [facility] Ag [Presence] in Respiratory specimen by Rapid tqvcyqtxqxr1346-42-46 15:59:00 Test Item Value Reference Range Interpretation Comments SARS-CoV - 2 (test code = SARS-CoV - negative 2) [facility] Ag [Presence] in Respiratory specimen by Rapid [id number] 15:59:00 Test Item Value Reference Range Interpretation Comments SARS-CoV - 2 (test code = SARS-CoV - negative 2) [facility] Ag [Presence] in Respiratory specimen by Rapid ugqfwnbuoon0837-03-64 15:59:00 Test Item Value Reference Range Interpretation Comments SARS-CoV - 2 (test code = SARS-CoV - negative 2) [facility]) Ag [Presence] in Respiratory specimen by Rapid [id number] 15:59:00 Test Item Value Reference Range Interpretation Comments SARS-CoV - 2 (test code = SARS-CoV - negative 2) [facility] Ag [Presence] in Respiratory specimen by Rapid bttohwxonrm4480-37-72 15:59:00 Test Item Value Reference Range Interpretation Comments SARS-CoV - 2 (test code = SARS-CoV - negative 2) [facility] A, ahpiwm0290-67-55 11:46:53 Test Item Value Reference Range Interpretation Comments Strep Result (test code = Strep negative Result) [facility], [id number] 11:46:53 Test Item Value Reference Range Interpretation Comments Strep Result (test code = Strep negative Result) [facility] HospitalInfluenza virus A and B and SARS-CoV+SARS-CoV-2 (COVID- 19) Ag panel - Upper respiratory specimen by Rapid nkyicepkmjk9934-29-98 11:46:48 Test Item Value Reference Range Interpretation Comments RAPID SARS COV (test code = RAPID negative SARS COV) RAPID FLU A (test code = RAPID FLU negative A) RAPID FLU B (test code = RAPID FLU negative B) [facility] HospitalInfluenza virus A and B and SARS-CoV+SARS-CoV-2 (COVID- 19) Ag panel - Upper respiratory specimen by Rapid hhczjedapwn4021-13-94 11:46:48 Test Item Value Reference Range Interpretation Comments RAPID SARS COV (test code = RAPID negative SARS COV) RAPID FLU A (test code = RAPID FLU negative A) RAPID FLU B (test code = RAPID FLU negative B) [facility] HospitalHemoglobin A1c [Mass/volume] in Kijsp2446-29-29 07:08:00 Test Item Value Reference Range Interpretation Comments Hemoglobin A1c [Mass/volume] in Blood 7.0 % 4.0-6.0 H (test code = 49172-5) [facility] HospitalComprehensive metabolic 2000 panel - Serum or Plasma [...] Serum or Plasma (test code = 6768-6) [facility] HospitalLipid 1996 panel - Serum or [id number] 07:08:00 Test Item Value Reference Range Interpretation Comments cholesterol level (test code = 103 mg/dL 150-200 L cholesterol level) triglycerides level (test code = 46 mg/dL <150 triglycerides level) HDL cholesterol (test code = HDL 57 mg/dL >55 cholesterol) LDL cholesterol direct (test code = 44 mg/dL <100 LDL cholesterol direct) cholesterol risk ratio (test code = 1.807 cholesterol risk ratio) [facility] HospitalUrinalysis complete W Reflex Culture panel - Urine 2021-12-04 07:05:00 Test Item Value Reference Range Interpretation Comments Color of Urine by Auto (test light yellow code = 41852-9) Appearance of Urine (test code clear clear = 5767-9) Glucose [Presence] in Urine by negative negative Automated test strip (test code = 20341-1) Bilirubin.total [Mass/volume] negative negative in Urine (test code = 1978-6) Ketones [Mass/volume] in Urine negative negative by Automated test strip (test code = 66014-1) Specific gravity of Urine by 1.014 1.003-1.030 Automated test strip (test code = 16226-8) blood urine (test code = blood negative negative urine) pH of Urine (test code = 6.500 5-9 2756-5) protein urine (UA) (test code = =2+ (200 negative H protein urine (UA)) Urobilinogen [Presence] in normal 0.2-1.0 Urine (test code = 82060-0) Nitrite [Presence] in Urine by negative negative Test strip (test code = 5802-4) Leukocyte esterase [Presence] negative negative in Urine by Automated test strip (test code = 12783-2) Erythrocytes [#/volume] in <1 0-5 Urine by Automated count (test code = 798-9) Leukocytes [#/area] in Urine <1 0-5 sediment by Automated count (test code = 37567-1) Epithelial cells [Presence] in <1 0-5 Urine sediment by Light microscopy (test code = 52722-1) Bacteria identified in Urine by none detected none detect Culture (test code = 630-4) Casts [#/area] in Urine none detected none detect sediment by Automated count (test code = 51011-4) urine culture added? (test code no = urine culture added?) [facility] Hospitallrenalp2022-01-12 07:05:00 Test Item Value Reference Range Interpretation [...] code = albumin) 3.4 g/dL 3.5-5.2 L [facility] HospitalCOMPREHENSIVE METABOLIC [id number] 08:00:00 Test Item Value Reference Range Interpretation [...] code = ALKP) - XR CHEST 1 [id number] 07:30:00 [facility] 1940 Sex: M FAX:Sarah Fritz [phone] [place]: St: ADM FAX: Gatito Lagos [phone] FAX: Ced Garcia MD [phone] Name: VALERIA POLLACK [facility] : 1940 Age/S: 80/M [address] [place] [address] Unit #: [id number] Loc: [address] [address] Phys: Sarah Fritz [facility] Acct: [id number] Dis Date: Status: ADM IN PHONE #: [phone] Exam Date: 01/31/2021 0545 FAX #: [phone] Reason: post watchman EXAMS: CPT CODE: [id number] XR CHEST 1 V 84388 CHEST RADIOGRAPH ONE VIEW 01/31/2021 AT 0504 HOURS. CLINICAL HISTORY: Post watchman procedure on 01/30/2021. COMPARISON STUDIES: Chest 2 views 01/28/2021. FINDINGS: One view of the chest was obtained. No visible procedural complication is identified considering history. Prior median sternotomy and TAVR procedure identified with left single lead pacemaker battery. The lungs are clear. There are no pleural effusions. Severe thoracic spondylosis. IMPRESSION:1. No visible procedural complication. SL: [id number] at 0730 Reported and signed by: Rodney Cox M.D. CC: Sarah Fritz; Gatito Webb MD; Ced Galicia MD Technologist: Александр Heck, RT(R); Sariah Spears, RT(R) Trnscrd Date/Time/By: 01/31/2021 (08) : By: [email or web address] Orig Print D/T: S: 01/31/2021 (7658) PAGE 1 Signed ReportCBC W/AUTO [id number] 06:57:00 Test Item Value Reference Range Interpretation [...] (test code NO = MDIFF) CBC W/AUTO [id number] 06:40:00 Test Item Value Reference Range Interpretation [...] MANUAL DIFF REQUIRED (test code = MDIFF) [id number] 17:22:00 Test Item Value Reference Range Interpretation Comments GLUBED (test code = 102 MG/DL 70-110 N Performe d by certified GLUBED) carbon dioxide operator at [facility] VIN-[id number] 16:44:00 Test Item Value Reference Range Interpretation Comments ACT-ISTAT (test code 252 SEC 74-137 H Perform ed by certified = ACTI) carbon dioxide operator at [facility] NWB-[id number] 16:44:00 Test Item Value Reference Range Interpretation Comments ACT-ISTAT (test code 208 SEC 74-137 H Perform ed by certified = ACTI) carbon dioxide operator at [facility] Novel Coronavirus 2018 [id number] 03:18:00 Test Item Value Reference Range Interpretation [...] for the identification of SARS-CoV-2 RNA usingthe Network Chemistry M2000 Sy stem under the FDA Emergen cy UseAuthorizatio n. The testing is perf ormed by personneltraine d in the procedures for the Burris M2000 molecular diagnostic SARS-CoV-2 les blas in vitro. - XR CHEST 2 [id number] 13:41:00 [facility] : 1940 Sex: M FAX: Ced Garcia MD [phone] [place]: St: PRE Name: VALERIA POLLACK [facility] : 1940 Age/S: 80/M [address] [place] [address] Unit #: [id number] Loc: [place] [address] Phys: Ced Galicia MD Acct: [id number] Dis Date: Status: PRE [facility] PHONE #: [phone] Exam Date: 01/28/2021 1326 FAX #: [phone] Reason: PREOP EXAMS: CPT CODE: [id number] XR CHEST 2 V 68873 PROCEDURE: CHEST TWO VIEW INDICATION: Preoperative exam, atrial fibrillation COMPARISON: None. FINDINGS: The lungs are clear. The pleura, cardiomediastinal silhouette and ribs are normal. No vascular congestion is present. Midline sternotomy wires and pacemaker are present. There are degenerative changes in the mid thoracic spine. IMPRESSION: No acute cardiopulmonary process. SL: [id number] at 1341 Reported and signed by: Deven Scott M.D. CC: Ced Galicia MD Technologist: CHALINO ArmasR) Trnscrd Date/Time/By: 01/28/2021 (1181) : By: [email or web address] Orig Print D/T: S: 01/28/2021 (7272) PAGE 1 Signed ReportBASIC METABOLIC PANEL 2021-01-28 [...] code = 8.7 mg/dL 8.0-10.5 N CA) [id number] 13:39:00 Test Item Value Reference Range Interpretation Comments PREALBUMIN (test code = PREALB) 14.0 mg/dL 16.0-40.0 L PROTHROMBIN [id number] 13:14:00 Test Item Value Reference Range Interpretation Comments PROTHROMBIN TIME 16.6 SECONDS 9.3-12.9 H PATIENT (test code = PTP) INTERNATIONAL NORMAL 1.5 0.8-1.2 H TARGET INR BY RATIO (test code = INDICATIO N Indication INR) INR1. Prophylax is of venous thrombos is 2.0 - 3.0 (orthoped ic surgery), Proph ylaxis of venous throm bosis [...] (to prevent recurrent infar ct). CBC W/AUTO [id number] 13:07:00 Test Item Value Reference Range Interpretation [...] (test code NO = MDIFF) CBC W/AUTO [id number] 13:04:00 Test Item Value Reference Range Interpretation [...] Basic metabolic 2000 panel - Serum or [id number] 08:10:00 Test Item Value Reference Range Interpretation [...] code = 9.1 mg/dL 8.8-10.2 calcium level) [facility] Auto Differential panel - [id number] 11:00:00 Test Item Value Reference Range Interpretation Comments white blood count (test code = 4.4 K/uL 4.0-12.3 white blood count) red blood count (test code = red 3.14 M/uL 3.80-5.80 L blood count) hemoglobin (test code = 9.5 g/dL 11.7-17.2 L hemoglobin) hematocrit (test code = 31.3 % 35.0-51.0 L hematocrit) MCV [Entitic volume] (test code = 99.7 fL 83-100 58518-4) mean corpuscular hemoglobin (test 30.3 pg 26.8-33.4 [...] 44.7-82.4 leukocytes in Blood (test code = 13071-4) Immature granulocytes [#/volume] 0.0 K/uL 0.0-0.03 H in Blood (test code = 62209-5) lymphocyte% (test code = 12.0 % 10.0-50.0 lymphocyte%) mono % (test code = mono %) 8.0 % 3.9-13.4 eos % (test code = eos %) 5.2 % 0.0-6.4 Basophils/100 leukocytes in 0.5 % 0.2-1.2 Unspecified specimen (test code = 94438-0) Band form neutrophils [#/volume] 3.25 K/uL 1.78-5.38 in Blood (test code = 32575-7) Lymphocytes [#/volume] in 0.5 K/uL 1.32-3.57 L Unspecified specimen by Automated count (test code = 89125-7) mono # (test code = mono #) 0.35 K/uL 0.30-0.82 eos # (test code = eos #) 0.23 K/uL 0.04-0.54 basophil # (test code = basophil 0.02 K/uL 0.01-0.08 #) NRBC% (test code = NRBC%) 0 /100 WBC 0-0.2 NRBC# (test code = NRBC#) 0 K/uL [facility] HospitalDifferential panel, method unspecified - [id number] 11:00:00NeutrophilsLymphocyteAtypical LymphMonocytePlatelet EstimateMataMerit Health CentralComprehensive metabolic 2000 panel - Serum or [id number] 11:00:00 Test Item Value Reference Range Interpretation [...] Serum or Plasma (test code = 6768-6) [facility] Auto Differential panel - [id number] 11:00:00 Test Item Value Reference Range Interpretation Comments white blood count (test code = 4.4 K/uL 4.0-12.3 white blood count) red blood count (test code = red 3.14 M/uL 3.80-5.80 L blood count) hemoglobin (test code = 9.5 g/dL 11.7-17.2 L hemoglobin) hematocrit (test code = 31.3 % 35.0-51.0 L hematocrit) MCV [Entitic volume] (test code = 99.7 fL 83-100 80830-4) mean corpuscular hemoglobin (test 30.3 pg 26.8-33.4 [...] 44.7-82.4 leukocytes in Blood (test code = 79451-2) Immature granulocytes [#/volume] 0.0 K/uL 0.0-0.03 H in Blood (test code = 41443-5) lymphocyte% (test code = 12.0 % 10.0-50.0 lymphocyte%) mono % (test code = mono %) 8.0 % 3.9-13.4 eos % (test code = eos %) 5.2 % 0.0-6.4 Basophils/100 leukocytes in 0.5 % 0.2-1.2 Unspecified specimen (test code = 56917-8) Band form neutrophils [#/volume] 3.25 K/uL 1.78-5.38 in Blood (test code = 59365-3) Lymphocytes [#/volume] in 0.5 K/uL 1.32-3.57 L Unspecified specimen by Automated count (test code = 96029-9) mono # (test code = mono #) 0.35 K/uL 0.30-0.82 eos # (test code = eos #) 0.23 K/uL 0.04-0.54 basophil # (test code = basophil 0.02 K/uL 0.01-0.08 #) NRBC% (test code = NRBC%) 0 /100 WBC 0-0.2 NRBC# (test code = NRBC#) 0 K/uL [facility] HospitalDifferential panel, method unspecified - [id number] 11:00:00NeutrophilsLymphocyteAtypical LymphMonocytePlatelet EstimateMataMerit Health CentralComprehensive metabolic 2000 panel - Serum or [id number] 11:00:00 Test Item Value Reference Range Interpretation [...] Serum or Plasma (test code = 6768-6) [facility] Notes Date/Time Note Provider Source 2021-01-31 15:31:00-00:00 [facility] ([facility]) Discharge Summary REPORT#:[id number] REPORT STATUS: Signed DATE:01/31/21 TIME: 1531 PATIENT: VALERIA POLLACK UNIT #: [id number] ROOM/BED: 3397-1 : 41 AGE: 80 SEX: M ATTEND: Johnna Webb MD ADM AUTHOR: Donald Johnson NP * ALL edits or amendments must be made on the el CADFORCEronic/computer document * PCP PCP PCP: PCP: Undefined Provider Discharge to: home General Information Date of admission: Observation Start Date: Date of admission: 01/30/21 Discharge date: 01/31/21 Admission diagnosis: Status post watchman device placement Hypertension Hyperlipidemia Hypothyroidism Atrial fibrillation Pacemaker placement COPD - not in exacerbation CKD stage III Anemia of chronic disease Hx CAD/NE/CABG/stents HX bovine Aortic valve replacement Discharge diagnosis: Status post watchman device placement Hypertension Hyperlipidemia Hypothyroidism Atrial fibrillation Pacemaker placement COPD - not in exacerbation CKD stage III Anemia of chronic disease Hx CAD/NE/CABG/stents HX bovine Aortic valve replacement Hospital course: Valeria Pollack is a 80 year ol d male with past history of CAD, multiple stents, NE , CABG, pacemaker, hyperlipidemia, pneumonia, CO PD, [...] Plan discussed with patient, and family at [facility] 01/31 Potassium level 5.1 Creatinine 1.2/GFR 58.4 [...] straight leg raise neg, no CVA tenderness Neuro/OPERATIONS LABEL CLERK: alert, oriented X 3, CNII-XII intact Considered [...] Johnson NP on 1 at 1533 RPT #:[id number] END OF REPORT 2021-01-31 11:52:00-00:00 [facility] Hospitalist Progress Note REPORT#:[id number] REPORT STATUS: Signed DATE:01/31/21 TIME: 1152 PATIENT: VALERIA POLLACK UNIT #: [id number] ROOM/BED: [place] [address] : 41 AGE: 80 SEX: M ATTEND: Johnna Webb MD ADM AUTHOR: Donald Johnson NP * ALL edits or amendments must be made on the [employer] document * Subjective Chief Complaint: Follow-up status [...] HCl 0 .STK-MED ONE .ROUTE (DC) Rocuronium Withams 0 .STK-MED ONE IV (DC) Lidocaine HCl [...] straight leg raise neg, no CVA tenderness Neuro/OPERATIONS LABEL CLERK: alert, oriented X 3, CNII-XII intact Considered [...] (Auto) (14.0 - 32.0 %) 9.0 L [place] % (Auto) (4.8 - 9.0 %) 6.2 Eos % (Auto) (0.3 - 3.7 %) 0.0 L Baso % (Auto) (0.0 - 2.0 %) 0.2 Neut # (Auto) (2.0 - 7.6 x10 3/uL) 3.92 Lymph # (Auto) (1.0 - 3.8 x10 3/uL) 0.42 L [place] # (Auto) (0.1 - 0.8 x10 3/uL) [...] RADIOLOGY - XR CHEST 1 V 01/31 0545 Report Impression - Status: SIGNED Entered: 01/31/2021 0734 IMPRESSION: 1. No visible procedural complication. SL: [id number] Impression By: Sandor2 - Rodney cruz M.D. Diagnosis, Assessment Plan Free Text DxA P Notes Free text DxA P notes: Status post watchman device placement Hypertension Hyperlipidemia Hypothyroidism Atrial fibrillation Pacemaker placement COPD - not in exacerbation CKD stage III Anemia of chronic disease Hx CAD/NE/CABG/stents HX bovine Aortic valve replacement PLAN: Resume [...] Plan discussed with patient, and family at [facility] 01/31 Potassium level 5.1 Creatinine 1.2/GFR 58.4 Continue Xarelto Pain control as needed Plavix and Brilinta DVT prophylactics Heart healthy diet Discharge planning today when cleared with cardi ologist Further recommendation based on clinical course Plan discussed with patient Electronically Signed by Donald Johnson NP on 1 at 1530 RPT #:[id number] END OF REPORT 2021-01-31 11:06:00-00:00 [id number] [address] PATIENT NAME: VALERIA POLLACK ADMIT DATE: 01/30/21 ACCOUNT NO: [id number] ROOM NO: Amanda.[id number] AGE: 80 REPORT TYPE: eECHOCARDIOGRAM REPORT SEX: M ADMITTING PHYSICIAN:Gatito Webb MD ATTENDING PHYSICIAN:Gatito Webb MD *[address] [address] Limited Transthoracic Echocardiogram Patient: Valeria Pollack Study Date: 01/31/2021 BP: 148 / 72 Location: [facility] URN: [id number] : 1940 Age: 80 Height: 68 in / 172.7 cm Gender: M Weight: 164 .7 lb / 74.8 kg BMI/BSA: 25.1 kg/m 2 / 1.9 m 2 *Ordering Physician: * Sarah Fritz *Interpreting Physician: * Red Diane MD *[employer]: * Yaquelin Dsouza Indications: POST WATCHAMAN. Study [...] 06 Prepared and electronically signed by Red Diane MD 01/31/2021 11:06 Electronically Signed by Red Diane MD on 0 01/31/21 at 1107 PATIENT NAME: VALERIA POLLACK 2021-01-31 06:47:00-00:00 [id number] [place] [address] PATIENT NAME: VALERIA POLLACK ADMIT DATE: 01/30/21 ACCOUNT NO: [id number] [place] [facility] 80 REPORT TYPE: eELECTROCARDIOGRAM REPORT SEX: M ADMITTING PHYSICIAN:Gatito Webb MD ATTENDING PHYSICIAN:Gatito Webb MD Order: [id number] Test Reason : POST WATCHMAN Test Date/Time [...] by VICKI KWONG MD ([id number]) on 02/01/20 9:09:06 AM Referred By: Ced Galicia Confirmed by:VICKI ESPOSITO MD at 0909 PATIENT NAME: VALERIA POLLACK 306 2021-01-30 18:26[facility]-00:00 [facility] History Physical REPORT#:[id number] REPORT STATUS: Signed DATE:01/30/21 TIME: 1825 PATIENT: VALERIA POLLACK UNIT #: [id number] ROOM/BED: [place] [address] : 41 AGE: 80 SEX: M ATTEND: Johnna Webb MD ADM AUTHOR: Jed Ryan NP * ALL edits or amendments must be made on the [employer] document * History of Present Illness HPI Chief complaint: S/P watchman device placement PCP: PCP: Undefined Provider HPI: Valeria Pollack is a 80 year ol d male with past history of CAD, multiple stents, NE , CABG, pacemaker, hyperlipidemia, pneumonia, CO PD, [...] Pulse 84 01/30 2307 Resp 18 01/30 230 24 hour I O ending at 0700: [...] straight leg raise neg, no CVA tenderness Neuro/OPERATIONS LABEL CLERK: alert, oriented X 3, CNII-XII intact Considered [...] stage III Anemia of chronic disease Hx CAD/NE/CABG/stents HX bovine Aortic valve replacement PLAN: Resume [...] Plan discussed with patient, and family at [facility] Electronically Signed by Jed Ryan NP on 10/13 at 0110 at 1141 RPT #:[id number] END OF REPORT 2021-01-30 18:26:00-00:00 [facility] Hospitalist History Physical REPORT#:[id number] REPORT STATUS: Signed DATE:01/30/21 TIME: 1825 PATIENT: VALERIA POLLACK UNIT #: [id number] ROOM/BED: [place] [address] : 41 AGE: 80 SEX: M ATTEND: Johnna Webb MD ADM AUTHOR: Jed Ryan NP * ALL edits or amendments must be made on the [employer] document * History of Present Illness HPI Chief complaint: S/P watchman device placement PCP: PCP: Undefined Provider HPI: Valeria Pollack is a 80 year ol d male with past history of CAD, multiple stents, NE , CABG, pacemaker, hyperlipidemia, pneumonia, CO PD, [...] Ox 99 01/30 2307 B/P 148/72 01/30 2307 B/P Mean 97.0 01/30 2307 O2 Delivery Room air 01/30 230 Temp 97.5 01/30 230 Pulse 84 01/30 [...] straight leg raise neg, no CVA tenderness Neuro/OPERATIONS LABEL CLERK: alert, oriented X 3, CNII-XII intact Considered [...] stage III Anemia of chronic disease Hx CAD/NE/CABG/stents HX bovine Aortic valve replacement PLAN: Resume [...] Plan discussed with patient, and family at [facility] Electronically Signed by Jed Ryan NP on 10/13 at 0110 RPT #:[id number] END OF REPORT 2021-01-30 17:10:00-00:00 [id number] [place] [address] PATIENT NAME: VALERIA POLLACK ADMIT DATE: 01/30/21 ACCOUNT NO: [id number] ROOM NO: G.3397 AGE: 81 REPORT TYPE: eELECTROCARDIOGRAM REPORT SEX: M ADMITTING PHYSICIAN:Gatito Webb MD ATTENDING PHYSICIAN:Gatito Webb MD Order: [id number] Test Reason : SP WATCHMAN Test Date/Time [...] Significant changes have occurred Confirmed by MD DIANE MOLHAM ([id number]) on 021 11:59:48 PM Referred By: Gatito Webb Confirmed by:RED JO MD Electronically Signed by Red Diane MD on 0 02/25/21 at 0000 PATIENT NAME: VALERIA POLLACK 2021-01-30 16:47:00-00:00 [id number] [place] [address] PATIENT NAME: AVLERIA POLLACK ADMIT DATE: 01/30/21 ACCOUNT NO: [id number] ROOM NO: G.3340 AGE: 80 REPORT TYPE: [...] anticoagulation. PRIMARY OPERATING SURGEON: Ced Galicia MD MYSQL DATABASE DEVELOPER: ANESTHESIA: COMPLICATIONS: None. BLEEDING: Less than 20 mL, accessed right femora l vein. A 16-Lebanese closed with a dsmjpq-iw-ehxqr suture. DESCRIPTION IN DETAIL: After risks, bene [...] vein with ultrasound guidance and placed an 8-Lebanese sheath and subsequently upgraded to a 16-Lebanese Gas Leak Inspector k sheath, gave partial dose of heparin [...] and exchanged the SL0 sheath for the Watc hman double curve sheath and then took [...] was introduced into PATIENT NAME: VALERIA POLLACK 06 the left atrial appendage an d then [...] sheath was removed and we used a izmygn-uk-lrgca suture at the access site with good [...] By: Ced Galicia MD WT: OP:NAKUL/ARIADNA/FADY Conf#: [id number]/DID#: [id number] Authenticated by Ced Galicia MD On 01/31/2021 05:39:35 AM Electronically Signed by Ced Galicia MD on at 0539 PATIENT NAME: VALERIA POLLACK 2021-01-28 17:49:00-00:00 [facility] ([facility]) Consultation Note - Brief REPORT#:[id number] REPORT STATUS: Signed DATE:01/28/21 TIME: 1749 PATIENT: VALERIA POLLACK UNIT #: [id number] ROOM/BED: : 41 AGE: 80 SEX: M ATTEND: Litzy Galicia MD ADM AUTHOR: Bony Lacey MD * ALL edits or amendments must be made on the [employer] document * History of Present Illness HPI [...] 1334 ATORVASTATIN (LIPITOR) 80 MG PO BEDTIME 1 Strength: 80 MG TAB 1335 COLESEVELAM (WELCHOL) [...] ACID (VITAMIN C) 1,000 MG PO DAILY 07/13 Strength: 1,000 MG TAB 1344 CHOLECALCIFEROL 1,000 [...] mass/ organomegaly, no pulsatile mass, no hernia Neuro/OPERATIONS LABEL CLERK: alert, oriented X 3, normal speech, n o motor deficits, no sensory deficits Skin: no gross abnormalities, normal color, no r aileen Findings/Data: Recent Impressions: RADIOLOGY - XR CHEST 2 V 01/28 1326 Report Impression - Status: SIGNED Entered: 01/28/2021 1344 IMPRESSION: No acute cardiopulmonary process. SL: [id number] Impression By: [email or web address] - Kaylynn Squires Laboratory Tests 01/28/21 1205: [Embedded Image Not Available] Free Text A P: 80-year-old man with significant past medical hi story of coronary disease, atrial fibrillation, diabetes and hypert ension presenting for preop evaluation and watchman shared decision making. [id number] score - 4 Adjusted stroke rate 4% a year HAS-BLED score - 4 Bleeding rate 8.7% a year [employer] questionnaire was done. Patient meets criteria for watchman insertion. at 1806 RPT #:[id number] END OF REPORT 2021-01-28 12:02:00-00:00 [id number] [place] [address] PATIENT NAME: VALERIA POLLACK ADMIT DATE: ACCOUNT NO: [id number] ROOM NO: AGE: 80 REPORT TYPE: eELECTROCARDIOGRAM REPORT SEX: M ADMITTING PHYSICIAN: ATTENDING PHYSICIAN:Ced Galicia MD Order: [id number] Test Reason : PREOP Test Date/Time Stamp: [...]
[2023-08-07 19:52] LABS: Absolute Lymphocytes (CBC) 0.8 K/uL (0.7-4.9); Hematocrit 31.4 % (39.6-49.0); Lymphocytes % 16.5 % (15.3-44.8); MCV 96.3 fL (80-100); MPV 9.3 fL (7.6-11.3); Platelets 116 thou/uL (152-406); RBC Red Blood Cell Count 3.26 M/uL (4.33-5.43)
[2023-08-07 20:39] LABS: Potassium 5.9 mEq/L (3.5-5.1)
--- NOTE | 2023-08-07 20:55 | ER ---
Nurse's Notes [facility] Name: Nirmala Ruiz Age: 83 yrs Sex: Male : 1940 Arrival Date: 08/07/2023 Time: 19:06 Bed 20 Private MD: Diagnosis: Hyperkalemia;Acute on Chronic Kidney failure;Anemia in chronic kidney disease;Essential (primary) hypertension Presentation: 08/07 19:13 Chief complaint: Patient states: Patient stated was sent here for elevated K+, BUN and pf1 Creatinine levels. Daughter stated labs were drawn on Thursday and was notified today by Dr. Cruz, audiovisual tech. 19:13 Coronavirus screen: Vaccine status: Patient reports receiving the 2nd dose of the covid pf1 vaccine. Client denies travel out of the [place] in the last 14 days. At this time, the client does not indicate any symptoms associated with coronavirus-19. Ebola Screen: Patient negative for fever greater than or equal to 101.5 degrees Fahrenheit, and additional compatible Ebola Virus Disease symptoms. Initial Sepsis Screen: Does the patient meet any 2 criteria? No. Patient's initial sepsis screen is negative. Does the patient have a suspected source of infection? No. Patient's initial sepsis screen is negative. Risk Assessment: Do you want to hurt yourself or someone else? Patient reports no desire to harm self or others. 19:13 Method Of Arrival: Ambulatory pf1 19:13 Acuity: ANAY 3 pf1 20:39 Onset of symptoms was August 07, 2023. ap3 Historical: - Allergies: 19:32 adhesive tape; pf1 19:32 TETRACYCLINES; pf1 - PMHx: 19:32 Hypercholesterolemia; Hypertensive disorder; Hypothyroidism; Diabetes mellitus; CKD; pf1 - PSHx: 19:32 pacemaker; aortic valve replacement; cardiac bypass; pf1 - Immunization history:: Adult Immunizations up to date, Client reports receiving the 2nd dose of the Covid vaccine, Last tetanus immunization: > 10 years ago Flu vaccine is not up to date. - Social history:: Smoking status: Patient/guardian denies using tobacco, the patient reports quitting approximately 40 years ago, Patient/guardian denies using alcohol, the patient reports quitting approximately 30 years ago. Screenin:38 Abuse screen: Denies threats or abuse. Denies injuries from another. Nutritional ap3 screening: No deficits noted. Tuberculosis screening: No symptoms or risk factors identified. Assessment: 19:13 General: Appears comfortable, Behavior is calm, cooperative. Pain: Denies pain. Neuro: ap3 Level of Consciousness is awake, alert, obeys commands, Oriented to person, place, time, situation. Cardiovascular: Patient's skin is warm and dry. Respiratory: Airway is patent Respiratory effort is even, unlabored, Respiratory pattern is regular, symmetrical. GI: No signs and/or symptoms were reported involving the gastrointestinal system. Derm: Skin is pink, warm \T\ dry. Musculoskeletal: Circulation, motion, and sensation intact. 20:10 Reassessment: Patient and/or family updated on plan of care and expected duration. Pain ha1 level reassessed. Patient is alert, oriented x 3, equal unlabored respirations, skin warm/dry/pink. 21:10 Reassessment: Patient and/or family updated on plan of care and expected duration. Pain ha1 level reassessed. Patient is alert, oriented x 3, equal unlabored respirations, skin warm/dry/pink. 21:37 Reassessment: report given to LALITHA Paredes. ha1 Vital Signs: 19:13 BP 161 / 69; Pulse 65; Resp 16; Temp 98.4; Pulse Ox 98% on R/A; Weight 68.04 kg; Height pf1 5 ft. 8 in. ; Pain 0/10; 19:15 BP 161 / 69; Pulse 70; Resp 17 S; Pulse Ox 100% on R/A; ap3 20:00 BP 166 / 74; Pulse 63; Resp 17 S; Pulse Ox 100% on R/A; ap3 20:31 BP 150 / 71; Pulse 66; Resp 17 S; Pulse Ox 100% on R/A; ap3 19:13 Body Mass Index 22.81 (68.04 kg, 172.72 cm) pf1 19:13 Pain Scale: Adult pf1 ED Course: 19:09 Patient arrived in ED. mr 19:13 Arm band placed on right wrist. ap3 19:15 Joni Blood DO is Attending Physician. ms3 19:15 Patient has correct armband on for positive identification. Placed in gown. Bed in low ap3 position. Call light in reach. Side rails up X 1. Adult w/ patient. 19:32 Triage completed. pf1 20:30 Inserted saline lock: 22 gauge in left antecubital area, using aseptic technique. Blood ap3 collected. 20:37 Attending Physician role handed off by Joni Blood DO ms3 20:37 Howie Raymond MD is Attending Physician. ms3 20:49 Joni Blood DO is Attending Physician. ms3 20:54 Nagi Ortega MD is Hospitalizing Provider. ms3 21:20 Beverly Kumar, LALITHA is Primary Nurse. ha1 22:01 No provider procedures requiring assistance completed. Patient admitted, IV remains in ha1 place. 22:04 Provided Education on: need for admit . ha1 Administered Medications: 21:15 Drug: NS 0.9% IV 1000 ml Route: IV; Rate: 1 bolus; Site: left antecubital; ha1 21:50 Follow up: Response: No adverse reaction; IV Status: Infusion continued; IV Intake: ha1 800ml 21:15 Drug: D50W IVP 50 ml Route: IVP; Site: left antecubital; ha1 21:50 Follow up: Response: No adverse reaction ha1 21:15 Drug: Insulin Regular Human IVP 7 units {Co-Signature: pf1 (Ирина Oviedo RN).} Route: ha1 IVP; Site: left antecubital; 21:50 Follow up: Response: No adverse reaction ha1 21:16 Drug: Calcium Gluconate IVPB 1 grams Route: IVPB; Infused Over: 60 mins; Site: left ha1 antecubital; 21:50 Follow up: Response: No adverse reaction; IV Status: Completed infusion; IV Intake: ha1 100ml 22:01 Not Given (Physician Discretion): Furosemide IVP 60 mg IVP once; GIVE AFTER IV FLUID ha1 BOLUS 22:01 Not Given (Physician Discretion): NS 0.9% IV 1000 ml IV at 50 ml/hr continuous; GIVE ha1 AFTER IV FLUID BOLUS Medication: 22:04 VIS not applicable for this client. ha1 Intake: 21:50 IV: 100ml; Total: 100ml. ha1 21:50 IV: 800ml; Total: 900ml. ha1 Outcome: 20:54 Decision to Hospitalize by Provider. ms3 22:01 Admitted to Med/surg accompanied by talon, via stretcher, room 210, with chart, Report ha1 called to LALITHA paredes 22:01 Condition: stable 22:01 Discharge instructions given to patient, family, Instructed on the need for admit, Demonstrated understanding of instructions. 22:07 Patient left the ED. ha1 Signatures: CorneliusIndiana newby mr Nelly, Shayy, RN RN ap3 Joni Blood DO DO ms3 Beverly Kumar RN RN ha1 Ирина Oviedo RN RN pf1 Ирина Oviedo RN pf1
--- NOTE | 2023-08-07 20:55 | EDPHYS ---
Physician Documentation [facility] Name: Nirmala Ruiz Age: 83 yrs Sex: Male : 1940 Arrival Date: 08/07/2023 Time: 19:06 Bed 20 Private MD: ED Physician Joni Blood HPI: 08/07 19:55 This 83 yrs old Male presents to ER via Ambulatory with complaints of Abnormal Lab ms3 Results. 19:55 83-year-old male with past medical history of hyperlipidemia, hypertension, ms3 hypothyroidism, diabetes, chronic kidney disease presents for elevated BUN, creatinine, potassium that were drawn on Thursday. Patient was alerted to this today. Patient states his welder/fitter is Dr. Cruz and his facing slitter is Dr. Galicia. Historical: - Allergies: 19:32 adhesive tape; pf1 19:32 TETRACYCLINES; pf1 - PMHx: 19:32 Hypercholesterolemia; Hypertensive disorder; Hypothyroidism; Diabetes mellitus; CKD; pf1 - PSHx: 19:32 pacemaker; aortic valve replacement; cardiac bypass; pf1 - Immunization history:: Adult Immunizations up to date, Client reports receiving the 2nd dose of the Covid vaccine, Last tetanus immunization: > 10 years ago Flu vaccine is not up to date. - Social history:: Smoking status: Patient/guardian denies using tobacco, the patient reports quitting approximately 40 years ago, Patient/guardian denies using alcohol, the patient reports quitting approximately 30 years ago. ROS: 19:55 Constitutional: Negative for fever, and chills. ENT: Negative for injury, pain, and ms3 discharge, Neck: Negative for injury, pain, and swelling, Cardiovascular: Negative for chest pain, and palpitations. Respiratory: Negative for shortness of breath, cough, wheezing, and pleuritic chest pain, Abdomen/GI: Negative for abdominal pain, nausea, vomiting, diarrhea, and constipation, MS/Extremity: Negative for injury and deformity, Skin: Negative for injury, rash, and discoloration. 19:55 All other systems are negative. Exam: 19:55 Constitutional: This is a well developed, well nourished patient who is awake, alert, ms3 and in no acute distress. Head/Face: Normocephalic, atraumatic. Neck: Trachea midline, no cervical lymphadenopathy. Supple, full range of motion without nuchal rigidity, or vertebral point tenderness. No Meningismus. Chest/axilla: Normal chest wall appearance and motion. Nontender with no deformity. Cardiovascular: Regular rate and rhythm with a normal S1 and S2. No gallops, murmurs, or rubs. Normal PMI, no JVD. No pulse deficits. Respiratory: Lungs have equal breath sounds bilaterally, clear to auscultation and percussion. No rales, rhonchi or wheezes noted. No increased work of breathing, no retractions or nasal flaring. Abdomen/GI: Soft, non-tender, with normal bowel sounds. No distension or tympany. No guarding or rebound. No evidence of tenderness throughout. Skin: Warm, dry with normal turgor. Normal color with no rashes, no lesions, and no evidence of cellulitis. 20:55 ECG was reviewed by the Attending Physician. ms3 Vital Signs: 19:13 BP 161 / 69; Pulse 65; Resp 16; Temp 98.4; Pulse Ox 98% on R/A; Weight 68.04 kg; Height pf1 5 ft. 8 in. ; Pain 0/10; 19:15 BP 161 / 69; Pulse 70; Resp 17 S; Pulse Ox 100% on R/A; ap3 20:00 BP 166 / 74; Pulse 63; Resp 17 S; Pulse Ox 100% on R/A; ap3 20:31 BP 150 / 71; Pulse 66; Resp 17 S; Pulse Ox 100% on R/A; ap3 19:13 Body Mass Index 22.81 (68.04 kg, 172.72 cm) pf1 19:13 Pain Scale: Adult pf1 MDM: 19:21 Patient medically screened. ms3 19:55 Differential Diagnosis Renal failure vs hyperkalemia vs CKD. ms3 20:50 Data reviewed: vital signs, nurses notes, and as a result, I will admit patient. ms3 Consideration of Admission/Observation Patient was admitted/placed on observation. Management of patient was discussed with the following: Hospitalist: Discussed patient with Rohith Francis NP, on behalf of Dr Ortega.. Process Design Chemical Engineer: Discussed case with Dr Cruz and he would like patient to receive Calcium gluconate, D50, 7 units IV insulin, 1 L NS bolus followed by 60 mg Lasix. Fluids at 50 ml NS.. I considered the following discharge prescriptions or medication management in the emergency department Medications were administered in the Emergency Department. See MAR. Independent interpretation of the following test(s) in the Emergency Department EKG: See my EKG interpretation above. Historians other than the Patient: Daughter/Son: Daughter. Counseling: I had a detailed discussion with the patient and/or guardian regarding the historical points, exam findings, and any diagnostic results supporting the discharge/admit diagnosis, lab results, the need for further work-up and treatment in the hospital. ED course: Discussed necessity of admission with patient and his daughter. They understand and agree with plan. All questions were answered. 08/07 19:22 Order name: CBC with Diff; Complete Time: 19:54 ms3 08/07 19:22 Order name: BMP; Complete Time: 20:40 ms3 08/07 21:55 Order name: glucometer results - FOR PT WITH NO ID ha1 08/07 22:06 Order name: Glucose, Ancillary Testing EDMS 08/07 20:35 Order name: EKG; Complete Time: 20:36 ms3 08/07 20:35 Order name: EKG - Nurse/Tech; Complete Time: 20:49 ms3 EC:55 Rate is 64 beats/min. Rhythm is irregularly irregular. Right axis deviation noted. QRS ms3 interval is prolonged. Clinical impression: Atrial Fibrillation. Interpreted by me. Reviewed by me. Administered Medications: 21:15 Drug: NS 0.9% IV 1000 ml Route: IV; Rate: 1 bolus; Site: left antecubital; ha1 21:50 Follow up: Response: No adverse reaction; IV Status: Infusion continued; IV Intake: ha1 800ml 21:15 Drug: D50W IVP 50 ml Route: IVP; Site: left antecubital; ha1 21:50 Follow up: Response: No adverse reaction ha1 21:15 Drug: Insulin Regular Human IVP 7 units {Co-Signature: pf1 (Ирина Oviedo RN).} Route: ha1 IVP; Site: left antecubital; 21:50 Follow up: Response: No adverse reaction ha1 21:16 Drug: Calcium Gluconate IVPB 1 grams Route: IVPB; Infused Over: 60 mins; Site: left ha1 antecubital; 21:50 Follow up: Response: No adverse reaction; IV Status: Completed infusion; IV Intake: ha1 100ml 22:01 Not Given (Physician Discretion): Furosemide IVP 60 mg IVP once; GIVE AFTER IV FLUID ha1 BOLUS 22:01 Not Given (Physician Discretion): NS 0.9% IV 1000 ml IV at 50 ml/hr continuous; GIVE ha1 AFTER IV FLUID BOLUS Disposition Summary: 08/07/23 20:54 Hospitalization Ordered Hospitalization Status: Inpatient Admission ms3 Provider: Nagi Ortega ms3 [facility] ms3 Condition: Stable ms3 Problem: new ms3 Symptoms: are unchanged ms3 Bed/Room Type: Standard ms3 Room Assignment: 210(08/07/23 21:09) cg Diagnosis - Hyperkalemia ms3 - Acute on Chronic Kidney failure ms3 - Anemia in chronic kidney disease ms3 - Essential (primary) hypertension ms3 Forms: - Medication Reconciliation Form ms3 - SBAR form ms3 - Leadership Thank You Letter ms3 Critical care time excluding procedures: 20:50 Critical care time: Bedside Care: 30 minutes, Consultation: 5 minutes, Family ms3 Intervention: 5 minutes. Total time: 40 minutes Signatures: Dispatcher [employer] EDMS Rohith Francis, ALEJANDRO-Casa GUITAR MAKER-Cla1 Елена Dacosta, RN RN Joni Bai DO DO ms3 Beverly Kumar RN RN ha1 Ирина Oviedo RN RN pf1 Ирина Oviedo RN pf1 Corrections: (The following items were deleted from the chart) 20:54 20:37 Transition of care: After a detail discussion of the patient's case, care is ms3 transferred to Howie Raymond MD ms3 20:56 20:30 ECG was reviewed by the Attending Physician. ms3 ms3 20:56 20:30 Rate is 93 beats/min. Rhythm is regular. QRS [place] is Normal. PA interval is ms3 prolonged. QRS interval is normal. Clinical impression: 1st degree heart block and with PVC. Interpreted by me. Reviewed by me. ms3 21:09 20:54 ms3 cg
[2023-08-07] MEDS ORDERED: INSULIN -REGULAR HUMAN 50 UNIT/0.5 ML ML ONE (21:08)
[2023-08-07] MEDS ORDERED: CALCIUM GLUCONATE 1 GM IVPB 1 GM/50 ML BAG IV ONE (21:16)
[2023-08-07] MEDS ORDERED: NA CHLORIDE 0.9% 1,000 ML ONE (21:17)
[2023-08-07] MEDS ORDERED: D10W 250 ML IV ONE (21:18)
--- NOTE | 2023-08-07 21:30 | P.HP ---
Certification for Inpatient Patient admitted to: Observation With expected LOS: <2 Midnights Patient will require the following post-hospital care: None Practitioner: I am a practitioner with admitting privileges, knowledge of patient current condition, hospital course, and medical plan of care. Services: Services provided to patient in accordance with Admission requirements found in Title 42 Section 412.3 of the Code of Federal Regulations Patient History Date of Service: 08/07/23 Reason for admission: NARA, hyperkalemia History of Present Illness: 83-year-old male with history of chronic systolic congestive heart failure, CKD 3, anemia of chronic disease, hypothyroidism, hyperlipidemia, hypertension, gra-kqlvaux-zqvaxtfys diabetes, atrial fibrillation status post Watchman procedure presents to the emergency department chief complaint of abnormal labs. He reports that he had routine labs done with his php consultant which revealed acute kidney injury, hyperkalemia. He was recently hospitalized on 06/24/2023 and subsequent discharged on 06/30/2023 for CHF exacerbation, he was diuresed and had significant improvement at that time I discharged his creatinine was 2.81 and his potassium was 4.2, today his potassium is 5.9 and his creatinine is 3.1. ED physician spoke with patient's primary php consultant who recommended treatment for his hyperkalemia and mild NARA which has been administered at this time. Will need to be admitted for NARA, hyperkalemia. Family does report that they believe patient was on a potassium binder during his hospitalization and did not continue his medication on outpatient basis. Allergies adhesive tape Allergy (Verified 08/26/22 13:25) Large Blister tetracycline Allergy (Verified 08/26/22 13:25) Rash Home Medications: Amlodipine Besylate 5 mg PO DAILY 08/26/22 Aspirin [Blair Aspirin] 81 mg PO DAILY 08/26/22 Atorvastatin Calcium [Lipitor] 80 mg PO BEDTIME 08/26/22 Colesevelam HCl [Welchol] 2 tab PO DAILY 08/26/22 Darbepoetin Ciro in Polysorbat [Aranesp] 25 mcg IM SEECOM 08/26/22 Glimepiride 1 mg PO DAILY 08/26/22 Levothyroxine [Synthroid*] 112 mcg PO [id number] 08/26/22 traMADol HCL [Ultram*] 50 mg PO Q6HP PRN 08/26/22 Ascorbate Calcium [Vitamin C] 500 mg PO BID 06/24/23 Cholecalciferol (Vitamin D3) [Vitamin D3] 250 mcg PO BID 06/24/23 Ferrous Sulfate [Ferrous Sulfate*] 2 tab PO BID 06/24/23 Lidocaine/Aloe Vera [Aloe Vera Gel] 1 cap PO DAILY 06/24/23 Lisinopril [Zestril] 10 mg PO DAILY 06/24/23 Lutein/Zeaxanthin/Bilberry Ext [Pjzezh-Ybsrsf-Akqyht 20Mg Sfgl] 2 cap PO DAILY 06/24/23 Pyridoxine [Vitamin B-6*] 100 mg PO DAILY 06/24/23 Sodium Zirconium Cyclosilicate [Lokelma] 1 packet PO DAILY 06/24/23 Vit C/E/Zn/Coppr/Lutein/Zeaxan [Preservision Areds 2 Chew Tab] 2 tab PO DAILY 06/24/23 Vitamin A 3,000 mcg PO DAILY 06/24/23 Vitamin E [Vitamin E*] 1 tab PO DAILY 06/24/23 Zinc Acetate [Wilzin] 2 tab PO DAILY 06/24/23 Furosemide [Lasix*] 80 mg PO TID #180 tab 06/30/23 - Past Medical/Surgical History Diabetic: Yes -: DM 2 -: HTN -: Hypothyroidism -: CHFsystolic -: Macular Degeneration -: A-fib status post watchman -: 1990- cataract removal and Lens implant -: Hemorrhoidectomy -: L knee repair -: Heart Cath x13 -: 2018 Pacemaker placement -: heart sents x10 -: R side hernia -: 2020 Watchman, aortic valve repairbovine - Family History Father -: Heart disease, Diabetes Mother -: Heart disease - Social History Smoking Status: Never smoker Alcohol use: No CD- Drugs: No Caffeine use: Yes Place of Residence: Home Review of Systems Unremarkable Physical Examination - Physical Exam General: Alert, In no apparent distress, Oriented x3 HEENT: Atraumatic, PERRLA, Mucous membr. moist/pink, EOMI, Sclerae nonicteric Neck: Supple, 2+ carotid pulse no bruit, No LAD, Without JVD or thyroid abnormality Respiratory: Clear to auscultation bilaterally, Normal air movement Cardiovascular: Regular rate/rhythm, Normal S1 S2 Gastrointestinal: Normal bowel sounds, No tenderness Musculoskeletal: No tenderness Integumentary: No rashes Neurological: Normal gait, Normal speech, Normal strength at 5/5 x4 extr, Normal tone, Normal affect Lymphatics: No axilla or inguinal lymphadenopathy - Studies Laboratory Data (last 24 hrs) 08/07/23 08/07/23 19:42 19:42 WBC 4.60 Hgb 10.3 L Hct 31.4 L Plt Count 116 L Sodium 138 Potassium 5.9 H BUN 94 H Creatinine 3.10 H Glucose 156 H Assessment and Plan - Plan Assessment: NARA on CKD 3 with hyperkalemia Chronic systolic congestive heart failure-pacemaker in place Atrial fibrillation status post Watchman procedure History of aortic valve replacementbovine CAD with previous CABG Diabetes mellitus type [id number]-gisounaog Hypertension Hyperlipidemia Hypothyroidism Plan: NARA on CKD 3 with hyperkalemia Case discussed with nephrology, recommendations carried out, repeat potassium this evening. Chronic systolic congestive heart failure-pacemaker in place Appears euvolemic at this time, continue gentle IV fluids per nephrology. Monitor volume status closely. Atrial fibrillation status post Watchman procedure Continue home medications including daily aspirin. History of aortic valve replacementbovine CAD with previous CABG Diabetes mellitus type [id number] Hypertension Hyperlipidemia Hypothyroidism Continue home medications. DVT PPX: Heparin subcu Code status: Full Discharge Plan: Home Plan to discharge in: 24 Hours - Advance Directives Does patient have a Living Will: No Does patient have a Durable POA for Healthcare: No - Code Status/Comfort Care Code Status Assessed: Yes (Full code) Critical Care: No Time Spent Managing Pts Care (In Minutes): 55
[2023-08-07] MEDS ORDERED: ONDANSETRON 4 MG/2 ML VIAL IV PRN (22:23)
[2023-08-07] MEDS ORDERED: DEXTROSE 10%-WATER 500 ML IV ONE (22:57)
[2023-08-07] MEDS: NA CHLORIDE 0.9% 1,000 ML IV SCH (23:00)
[2023-08-07] MEDS ORDERED: FUROSEMIDE 40 MG/4 ML VIAL ONE (23:08)
[2023-08-07] MEDS ORDERED: DEXTROSE 10%-WATER 250 ML IV SCH (23:15)
[2023-08-07] MEDS ORDERED: DEXTROSE 10%-WATER 250 ML IV ONE (23:17)
[2023-08-07 23:51] VITALS: BMI 23.1
[2023-08-08 03:41] LABS: Hematocrit 29.4 % (39.6-49.0); MPV 9.5 fL (7.6-11.3); Platelets 106 thou/uL (152-406); RBC Red Blood Cell Count 3.09 M/uL (4.33-5.43)
[2023-08-08 03:58] LABS: Potassium 4.8 mEq/L (3.5-5.1)
[2023-08-08 04:51] LABS: Specific Gravity 1.007 (1.005-1.030); Urine Bilirubin NEGATIVE (Negative); Urine Blood Negative (Negative); Urine Clarity Clear (Clear); Urine Color Colorless (Yellow); Urine Glucose NEGATIVE (Negative); Urine Protein NEGATIVE (Negative); Urine Urobilinogen Normal (Normal)
[2023-08-08] MEDS: INSULIN -REGULAR HUMAN 50 UNIT/0.5 ML ML SQ SCH ×4 (07:30→21:40)
[2023-08-08] MEDS ORDERED: PNEUMOCOCCAL VACCINE 0.5 ML IMVAC ONE (08:00)
[2023-08-08] MEDS: HEPARIN 5000 UNIT/ML 1 ML VIAL SQ SCH ×2 (09:35→21:41)
--- NOTE | 2023-08-08 11:39 | P.PN ---
Subjective Date of Service: 08/08/23 Chief Complaint: NARA, hyperkalemia He reports that he feels well this morning. He states that he was referred to the hospital due to abnormal values on his routine labs. Overnight, he had an episode of hypoglycemia, but remained asymptomatic. He denies any chest pain, palpitations, or shortness of breath. Review of Systems 10-point ROS is otherwise unremarkable Physical Examination - Vital Signs Temperature: 97 F Blood Pressure: 158/76 Pulse: 64 Respirations: 17 Pulse Ox (%): 98 - Physical Exam General: Alert, In no apparent distress, Oriented x3 HEENT: Atraumatic, Mucous membr. moist/pink, Sclerae nonicteric Neck: JVD not distended Respiratory: Clear to auscultation bilaterally, Normal air movement Cardiovascular: No edema, Regular rate/rhythm, Normal S1 S2, No gallops, No rubs, No murmurs Gastrointestinal: Normal bowel sounds, Soft and benign, Non-distended, No tenderness, No rebound, No guarding Musculoskeletal: No clubbing Integumentary: No rashes Neurological: Normal speech, Normal affect - Studies Laboratory Data (last 24 hrs) 08/07/23 08/07/23 19:42 19:42 WBC 4.60 Hgb 10.3 L Hct 31.4 L Plt Count 116 L Sodium 138 Potassium 5.9 H BUN 94 H Creatinine 3.10 H Glucose 156 H Assessment And Plan - Plan # Hyperkalemia with KDIGO Stage I Acute Kidney Injury on Chronic Kidney Disease Stage III # Probable Anemia of Chronic Kidney Disease - Nephrology consulted - recommendations appreciated - Potassium = 5.9 -> 5.3 -> 4.8 - Creatinine = 3.10 -> 2.72 (creatinine was as low as 2.42 on 06/27/2023) - Urinalysis = unremarkable - IV fluids per Nephrology - Monitor creatinine and urine output - If worsening, obtain renal ultrasound - Renally dose medications - Avoid nephrotoxic agents # Hypoglycemia in Type II Diabetes Mellitus - Hold home glimepiride - As needed dextrose + juice # Chronic Compensated Diastolic Congestive Heart Failure # Hypertension - Transthoracic echocardiogram (06/24/2023) = "1. low normal left ventricular ejection fraction 50% 2. significant left ventricular conduction abnormality and it is functioning well 3. diastolic dysfunction 4. mild mitral regurgitation/ mild tricuspid regurgitation" - Reports prior LVEF ~20 %, which has recovered - Continue home amlodipine - Hold home furosemide given NARA - Hold home lisinopril given NARA and hyperkalemia # Coronary Artery Disease s/p CABG # Hyperlipidemia - Continue home aspirin, atorvastatin - Hold home lisinopril given NARA and hyperkalemia # Chronic Atrial Fibrillation s/p Watchman device and PPM - Continue home aspirin # Hypothyroidism - Continue home levothyroxine Nagi Ortega M.D.
[2023-08-08] MEDS: ASPIRIN 81 MG CHEWABLE TABLET PO SCH (13:00)
[2023-08-08] MEDS: AMLODIPINE 5 MG TAB PO SCH (13:00)
--- NOTE | 2023-08-08 13:20 | P.CNS ---
Date of Consult: 08/08/23 Reason for Consult: renal failure Requesting Physician: Nagi Ortega Chief Complaint: NARA, hyperkalemia History of Present Illness: 83M w/ PMHx of CKD3, Htn, HLD, DM2, chronic systolic heart failure, anemia, hypothyroidism, & chronic atrial fibrillation status post Watchman procedure, who p/w abnormal labs w/ NARA & hyperkalemia, sent by Nephrology for hospital admission. SCr 3.1 & serum K 5.9 on adm. Received IV fluid. SCr improved to 2.7 & serum K lowered to 4.8 today. Allergies adhesive tape Allergy (Verified 08/07/23 23:39) Large Blister tetracycline Allergy (Verified 08/07/23 23:39) Rash Home Medications: Amlodipine Besylate 5 mg PO DAILY 08/26/22 Aspirin [[place] Aspirin] 81 mg PO DAILY 08/26/22 Atorvastatin Calcium [Lipitor] 80 mg PO BEDTIME 08/26/22 Colesevelam HCl [Welchol] 2 tab PO DAILY 08/26/22 Darbepoetin Ciro in Polysorbat [Aranesp] 25 mcg IM SEECOM 08/26/22 Glimepiride 1 mg PO DAILY 08/26/22 Levothyroxine [Synthroid*] 112 mcg PO [id number] 08/26/22 traMADol HCL [Ultram*] 50 mg PO Q6HP PRN 08/26/22 Ascorbate Calcium [Vitamin C] 500 mg PO BID 06/24/23 Cholecalciferol (Vitamin D3) [Vitamin D3] 250 mcg PO BID 06/24/23 Ferrous Sulfate [Ferrous Sulfate*] 2 tab PO BID 06/24/23 Lidocaine/Aloe Vera [Aloe Vera Gel] 1 cap PO DAILY 06/24/23 Lisinopril [Zestril] 10 mg PO DAILY 06/24/23 Lutein/Zeaxanthin/Bilberry Ext [Qffbqs-Rbzsuz-Xcqrvg 20Mg Sfgl] 2 cap PO DAILY 06/24/23 Pyridoxine [Vitamin B-6*] 100 mg PO DAILY 06/24/23 Vit C/E/Zn/Coppr/Lutein/Zeaxan [Preservision Areds 2 Chew Tab] 2 tab PO DAILY 06/24/23 Vitamin A 3,000 mcg PO DAILY 06/24/23 Vitamin E [Vitamin E*] 1 tab PO DAILY 06/24/23 Zinc Acetate [Wilzin] 2 tab PO DAILY 06/24/23 Furosemide [Lasix*] 80 mg PO TID #180 tab 06/30/23 - Past Medical/Surgical History Diabetic: Yes -: DM 2 -: HTN -: Hypothyroidism -: CHFsystolic -: Macular Degeneration -: A-fib status post watchman -: 1990- cataract removal and Lens implant -: Hemorrhoidectomy -: L knee repair -: Heart Cath x13 -: 2018 Pacemaker placement -: heart sents x10 -: R side hernia -: 2020 Watchman, aortic valve repairbovine - Family History Father Medical History: Heart disease, Diabetes Mother Medical History: Heart disease - Social History Alcohol use: No CD- Drugs: No Caffeine use: Yes Place of Residence: Home Review of Systems General: Weakness Eyes: Unremarkable ENT: Unremarkable Respiratory: Unremarkable Cardiovascular: Unremarkable Gastrointestinal: Unremarkable Genitourinary: Unremarkable Musculoskeletal: Atrophy Integumentary: Unremarkable Neurological: Weakness Lymphatics: Unremarkable Physical Examination Temp Pulse Resp BP Pulse Ox 97 F 64 17 158/76 H 98 08/08/23 11:54 08/08/23 11:54 08/08/23 11:54 08/08/23 11:54 08/08/23 11:54 General: Other (chronically ill-appearing) HEENT: Atraumatic, Normocephalic Neck: Supple Respiratory: Other (symmetric chest expansion) Cardiovascular: No rubs, No murmurs Gastrointestinal: Soft and benign, No rebound Musculoskeletal: No clubbing Integumentary: No warmth Neurological: Normal speech, Normal tone Urinary: Other (no bladder distention) External genitalia: Deferred Rectal: Deferred Laboratory Data (last 24 hrs) 08/07/23 08/07/23 19:42 19:42 WBC 4.60 Hgb 10.3 L Hct 31.4 L Plt Count 116 L Sodium 138 Potassium 5.9 H BUN 94 H Creatinine 3.10 H Glucose 156 H Conclusions/Impression: # NARA 2/2 diuretic use SCr 3.1 on adm, improved to 2.7 today Hold lasix [place] po fluid intake at least 2L/day # CKD3a Baseline GFR around 50 ml/min Monitor renal panel # Hyperkalemia Improved IVF Low K diet Lokelma x 1 dose today # Chronic systolic HF Hx of aortic valve replacement TTE in Jun 2023 showed LVEF 50%, diastolic dysfunction, mild MR, mild TR Recent BNP sig elevated Hold lasix Strict low Na diet < 2g/d Do not limit po fluid intake, unless he develops hyponatremia < 130 meq/L,to avoid NARA on diuretics # Htn continue current medication regimen # DM2 Mngt per primary team
[2023-08-08] MEDS ORDERED: SODIUM ZIRCONIUM CYCLOSILICATE 10 GM/PKT PO ONE (14:00)
[2023-08-08] MEDS: NA CHLORIDE 0.9% 1,000 ML IV SCH (18:05)
[2023-08-08] MEDS ORDERED: ATORVASTATIN 80 MG TAB PO SCH (21:00)
[2023-08-09 01:04] VITALS: O2SAT 98
[2023-08-09 03:42] LABS: Hematocrit 29.1 % (39.6-49.0); Lymphocytes % 19.6 % (15.3-44.8); MCV 94.1 fL (80-100); MPV 9.4 fL (7.6-11.3); Platelets 108 thou/uL (152-406); RBC Red Blood Cell Count 3.09 M/uL (4.33-5.43)
[2023-08-09 04:00] LABS: Magnesium 1.9 mg/dL (1.6-2.4); Potassium 4.7 mEq/L (3.5-5.1)
[2023-08-09] MEDS ORDERED: LEVOTHYROXINE SOD 0.112 MG TAB PO SCH (06:00)
[2023-08-09] MEDS: INSULIN -REGULAR HUMAN 50 UNIT/0.5 ML ML SQ SCH (07:30)
[2023-08-09] MEDS: AMLODIPINE 5 MG TAB PO SCH (09:18)
[2023-08-09] MEDS: ASPIRIN 81 MG CHEWABLE TABLET PO SCH (09:19)
[2023-08-09] MEDS: HEPARIN 5000 UNIT/ML 1 ML VIAL SQ SCH (09:19)
--- NOTE | 2023-08-09 13:20 | P.PN ---
Subjective Date of Service: 08/09/23 Chief Complaint: NARA, hyperkalemia Subjective: Other (reports no shortness of breath.) Physical Examination - Vital Signs Temperature: 97.7 F Blood Pressure: 127/86 Pulse: 67 Respirations: 18 Pulse Ox (%): 99 - Physical Exam General: Other (chronically ill-appearing) HEENT: Atraumatic, Normocephalic Neck: Supple Respiratory: Other (symmetric chest expansion) Cardiovascular: No rubs, No murmurs Gastrointestinal: Soft and benign, No guarding Musculoskeletal: No clubbing Integumentary: No warmth Neurological: Normal tone Urinary: Other (no bladder distention) External genitalia: Deferred Rectal: Deferred Assessment And Plan - Plan # NARA 2/2 diuretic use SCr 3.1 on adm, improved to 2.5 today [place] po fluid intake at least 2L/day Resume torsemide tomorrow # CKD3a Baseline GFR around 50 ml/min Monitor renal panel # Hyperkalemia Improved Received IVF & lokelma Low K diet # Chronic systolic HF Hx of aortic valve replacement TTE in Jun 2023 showed LVEF 50%, diastolic dysfunction, mild MR, mild TR Recent BNP sig elevated Resume torsemide tomorrow at 40 mg po daily. Target weight 150 lbs. Weigh daily accurately. If wt goes 155 lbs or more, double torsemide dose. If wt goes 145 lbs or lower, halve torsemide dose. Strict low Na diet < 2g/d Do not limit po fluid intake, unless he develops hyponatremia < 130 meq/L,to avoid NARA on diuretics # Htn Continue current medication regimen # DM2 Mngt per primary team # Dispo May dc today F/u w/ nephro Dr. Cruz in 2 wks
--- NOTE | 2023-08-09 15:15 | P.DS ---
Admission Date: 08/07/23 Discharge Date: 08/09/23 Disposition: ROUTINE DISCHARGE Discharge Condition: GOOD Reason for Admission: NRAA, hyperkalemia Consultations: 1. Nephrology Hospital Course: DIAGNOSES: # Hyperkalemia with KDIGO Stage I Acute Kidney Injury on Chronic Kidney Disease Stage III # Probable Anemia of Chronic Kidney Disease # Hypoglycemia in Type II Diabetes Mellitus # Chronic Compensated Diastolic Congestive Heart Failure # Hypertension # Coronary Artery Disease s/p CABG # Hyperlipidemia # Chronic Atrial Fibrillation s/p Watchman device and PPM # Hypothyroidism HOSPITAL COURSE: Mr. Nirmala Ruiz is a pleasant 83 year old male with a past medical history significant for chronic kidney disease stage III, type II diabetes mellitus, chronic diastolic congestive heart failure, coronary artery disease s/p CABG, hyperlipidemia, chronic atrial fibrillation s/p Watchman/PPM, and hypothyroidism who was admitted to the [facility] on 08/07/2023 for abnormal outside labs. He was admitted to the Medicine service. Upon further evaluation, he was found to have hyperkalemia as well as an acute kidney injury. His lisinopril and furosemide were held and he was treated with fluids. Over the course of his hospitalization, his creatinine improved significantly. Nephrology was consulted and he was seen by Dr. Guillermo. Today, Dr. Guillermo has cleared him for discharge with torsemide 40 mg daily (first dose on 08/10/2023) and an outpatient follow- up with Dr. Cruz. Of note, his hospital course was complicated by hypoglycemia (thought to be medication induced), which has now stabilized. He was advised to discontinue glimepiride and monitor his glucose levels closely at home. His daughter, who is at bedside, is a registered nurse who will monitor him at home. He states that he feels well and would like to be discharged home. On 08/09/2023, he was seen on rounds and deemed medically stable for discharge. He was discharged with instructions to schedule follow-up appointments with his PCP (Dr. Spaulding) and with Nephrology (Dr. Cruz). He was provided a prescription for torsemide. He and his daughter were given the opportunity to ask questions and reported no further questions. Furthermore, all questions were answered to the best of my ability. A copy of this discharge summary will be sent to the above providers to facilitate continuity of care. Today, I personally spent 25 minutes on his case, of which greater than 50% of the time was spent in patient education, counseling, and coordination of care as described above. - Physical Exam General: Alert, In no apparent distress, Oriented x3 HEENT: Atraumatic, Mucous membr. moist/pink, Sclerae nonicteric Neck: JVD not distended Respiratory: Clear to auscultation bilaterally, Normal air movement Cardiovascular: No edema, Regular rate/rhythm, No murmurs Gastrointestinal: Normal bowel sounds, Soft, Non-distended, No tenderness Neurological: Normal speech, Normal affect Vital Signs/Physical Exam: Temp Pulse Resp BP Pulse Ox 97.7 F 67 18 127/86 99 08/09/23 13:22 08/09/23 13:22 08/09/23 13:22 08/09/23 13:22 08/09/23 13:22 Laboratory Data at Discharge: WBC 5.20 thou/uL (4.3-10.9) 08/09/23 03:27 Hgb 9.8 g/dL (13.6-17.9) L 08/09/23 03:27 Hct 29.1 % (39.6-49.0) L 08/09/23 03:27 Plt Count 108 thou/uL (152-406) L 08/09/23 03:27 Sodium 138 mEq/L (136-145) 08/09/23 03:27 Potassium 4.7 mEq/L (3.5-5.1) 08/09/23 03:27 BUN 81 mg/dL (7-18) H 08/09/23 03:27 Creatinine 2.46 mg/dL (0.70-1.30) H 08/09/23 03:27 Glucose 182 mg/dL (74-106) H 08/09/23 12:20 Magnesium 1.9 mg/dL (1.6-2.4) 08/09/23 03:27 Home Medications: Amlodipine Besylate 5 mg PO DAILY 08/26/22 Aspirin [[place] Aspirin] 81 mg PO DAILY 08/26/22 Atorvastatin Calcium [Lipitor] 80 mg PO BEDTIME 08/26/22 Colesevelam HCl [Welchol] 2 tab PO DAILY 08/26/22 Darbepoetin Ciro in Polysorbat [Aranesp] 25 mcg IM SEECOM 08/26/22 Levothyroxine [Synthroid*] 112 mcg PO [id number] 08/26/22 traMADol HCL [Ultram*] 50 mg PO Q6HP PRN 08/26/22 Ascorbate Calcium [Vitamin C] 500 mg PO BID 06/24/23 Cholecalciferol (Vitamin D3) [Vitamin D3] 250 mcg PO BID 06/24/23 Ferrous Sulfate [Ferrous Sulfate*] 2 tab PO BID 06/24/23 Lidocaine/Aloe Vera [Aloe Vera Gel] 1 cap PO DAILY 06/24/23 Lutein/Zeaxanthin/Bilberry Ext [Fpxjzq-Czqkol-Xifxdz 20Mg Sfgl] 2 cap PO DAILY 06/24/23 Pyridoxine [Vitamin B-6*] 100 mg PO DAILY 06/24/23 Vit C/E/Zn/Coppr/Lutein/Zeaxan [Preservision Areds 2 Chew Tab] 2 tab PO DAILY 06/24/23 Vitamin A 3,000 mcg PO DAILY 06/24/23 Vitamin E [Vitamin E*] 1 tab PO DAILY 06/24/23 Zinc Acetate [Wilzin] 2 tab PO DAILY 06/24/23 Torsemide [Demadex*] 40 mg PO DAILY #60 tab 08/09/23 New Medications: Torsemide [Demadex*] 40 mg PO DAILY #60 tab Physician Discharge Instructions: 1. Please call and schedule a follow-up appointment with your PCP (Dr. Spaulding) in 3-5 days - Your blood work showed anemia. Please discuss with your PCP for further evaluation. 2. Please call and schedule a follow-up appointment with Nephrology (Dr. Cruz) in 3-5 days - Please have him repeat your kidney function blood work. Medication changes: 1. Starting tomorrow, please take torsemide 40 mg one time per day 2. Please stop taking furosemide, lisinopril, and glimepiride You have been given a 1 month prescription for torsemide. Please follow-up with your PCP for medication refills/adjustments Diet: Renal Activity: Ad bety Followup: Deacon Cruz MD [ACTIVE - CAN ADMIT] - Mervin Spaulding MD [OUTSIDE PHYSICIAN] -
[2023-08-10 07:58] VITALS: BP 127/86; TEMP 97.7
[2023-08-10] MEDS ORDERED: TORSEMIDE 20 MG TAB PO SCH (09:00)
--- NOTE | 2023-08-10 19:10 | EKG ---
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
== END 2023-08-09 18:06 | disposition home or self-care (01) ==
LOC: ER 19:06 → ERHOLD 21:02 → 2ND 21:20
PROVIDERS: ADMIT Internal Medicine; ATTEND Internal Medicine
DX: N17.9 Acute kidney failure, unspecified (principal); E87.5 Hyperkalemia; I50.22 Chronic systolic (congestive) heart failure; E11.22 Type 2 diabetes mellitus with diabetic chronic kidney disease; E11.649 Type 2 diabetes mellitus with hypoglycemia without coma; I13.10 Hypertensive heart and chronic kidney disease without heart failure, with stage 1 through stage 4 chronic kidney disease, or unspecified chronic kidney disease; N18.31 Chronic kidney disease, stage 3a; I25.10 Atherosclerotic heart disease of native coronary artery without angina pectoris; E03.9 Hypothyroidism, unspecified; Z79.82 Long term (current) use of aspirin; Z95.1 Presence of aortocoronary bypass graft; Z95.0 Presence of cardiac pacemaker; Z88.3 Allergy status to other anti-infective agents; Z23 Encounter for immunization
CPT/HCPCS: 96365; 93005; 85025 ×3; 80048 ×3; 36415 ×2; 83735 ×2; 82947 ×14; 84132; 81003; 83036; 90471; 90732; 97116; 97161; 97530; 96375; 99285; J1815 ×2; J1644 ×3; J0612; J1940; J7030 ×3; G0378 ×4

== ENCOUNTER 2023-10-06 08:30 | Day surgery (SDC) | payer OTHER ==
[2023-10-01 13:22] LABS: Absolute Lymphocytes (CBC) 1.3 K/uL (0.7-4.9); Hematocrit 33.8 % (39.6-49.0); Lymphocytes % 18.5 % (15.3-44.8); MCV 96.5 fL (80-100); MPV 9.7 fL (7.6-11.3); Platelets 149 thou/uL (152-406); RBC Red Blood Cell Count 3.51 M/uL (4.33-5.43)
[2023-10-01 13:31] LABS: Protime INR 1.2
[2023-10-01 13:39] LABS: Potassium 4.9 mEq/L (3.5-5.1)
--- NOTE | 2023-10-03 14:13 | EKG ---
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
[2023-10-06 09:37] VITALS: TEMP 98
[2023-10-06] MEDS ORDERED: NA CHLORIDE 0.9% 500 ML ONE (09:39)
[2023-10-06] MEDS ORDERED: LIDOCAINE 1% 20 ML MDV ONE (10:32)
[2023-10-06] MEDS ORDERED: HEPA 1000U/500MLS 2,000 UNIT/1,000 ML BAG IV ONE (10:32)
[2023-10-06] MEDS ORDERED: MIDAZOLAM HCL 2 MG/2 ML INJ ONE (10:33)
[2023-10-06] MEDS ORDERED: HEPARIN 10,000 UNIT/10 ML VIAL IV ONE (10:34)
[2023-10-06] MEDS ORDERED: CLOPIDOGREL 75 MG TABLET ONE (10:34)
[2023-10-06] MEDS ORDERED: TICAGRELOR 90 MG TABLET PO ONE (10:34)
--- NOTE | 2023-10-06 12:14 | OP ---
Date of Procedure: 10/06/2023 Surgeon: SHANT CHANDLER Procedures Performed: 1.Selective coronary angiogram with bypass graft study. 2.Left heart catheterization. Indication: Decent drop in ejection fraction with abnormal stress test and chest pain. Access: Right femoral artery 6-[place] closed with 6-[place] Angio-Seal. Complications: None. Bleeding: Less than 20 mL. Total contrast used was 32 mL. Anesthesia: Total sedation time was 50 minutes, used fentanyl and Versed. Description Of Procedure: After risks, benefits, and alternatives were explained, patient agreed to procedure and signed informed consent. Patient was brought into cardiac catheterization laboratory, prepped and draped in the usual sterile fashion. Then I accessed right femoral artery using micropun cture kit, ultrasound guidance, and fluoroscopy, I placed 6-[place] Gaston sheath and took 6-[place] JL4 catheter into the aortic root, engaged the left main, took standard views and exchanged for a 6-F rench JR4 catheter, engaged the RCA, SVG to RCA, SVG to OM, and SVG and the HEWITT to LAD, took standar d views and the catheter was pushed over the wire into the LV, measured the LVEDP. Pullback did not record any gradient. Then I removed the catheter and the sheath. 6-[place] Angio-Seal was used for c losure with good hemostasis. Findings: 1.Left main; moderate size with luminal irregularities. 2.LAD; proximal BOAT DOCK OPERATOR with patent HEWITT to LAD. 3.Left circumflex; small with proximal 80% to 90% stenosis with patent SVG to left circumflex, SVG t o the left circumflex has a stent. Within the stent, there is a 30% iSR. 4.RCA; there is a dominant circulation with a stent from proximal all the way to the PDA has 50% iSR and in the PDA becomes a BOAT DOCK OPERATOR. There is a branch that comes off before the BOAT DOCK OPERATOR that supplies the inf erior wall partially and the SVG to RCA is totally occluded. Bypass Graft Study: 1.Patent HEWITT to LAD. 2.Patent HEWITT to the left circumflex with wide-open stent, has about 20% to 30% iSR throughout. 3.Occluded SVG to RCA. 4.Normal LVEDP at 9 mmHg. Conclusion: Severe multivessel coronary artery disease as outlined above along the vessel that is no t well perfused to the RCA. Plan And Recommendation: Due to the advanced kidney disease, we will plan for an attempt of PCI of t he totally occluded RCA in about 6 weeks if his kidney's numbers remain stable. We used only 30 cc o f contrast today and we will plan on staging this procedure due to his advanced kidney disease. /MODL Voice ID: [id number] Report ID: [id number]
[2023-10-06 15:47] VITALS: BP 134/117; O2SAT 96
== END 2023-10-06 13:30 | disposition home or self-care (01) ==
LOC: CCL 08:30
PROVIDERS: ATTEND Internal Medicine
DX: I25.110 Atherosclerotic heart disease of native coronary artery with unstable angina pectoris (principal); I25.700 Atherosclerosis of coronary artery bypass graft(s), unspecified, with unstable angina pectoris; I25.82 Chronic total occlusion of coronary artery; T82.855A Stenosis of coronary artery stent, initial encounter; I65.23 Occlusion and stenosis of bilateral carotid arteries; I11.0 Hypertensive heart disease with heart failure; I50.21 Acute systolic (congestive) heart failure; I35.0 Nonrheumatic aortic (valve) stenosis; I48.0 Paroxysmal atrial fibrillation; E11.9 Type 2 diabetes mellitus without complications; Z79.82 Long term (current) use of aspirin; Z79.899 Other long term (current) drug therapy; Z88.1 Allergy status to other antibiotic agents; Z91.09 Other allergy status, other than to drugs and biological substances
CPT/HCPCS: 93005; 85025; 80048; 36415; 83721; 85610; 82947; 85730; 93459; 76937; C1893; Q9966; C1760; G0269; J2001; J2250; J7040

== ENCOUNTER 2023-12-12 09:14 | Inpatient (IN) | payer OTHER ==
[2023-12-12 09:45] LABS: Absolute Lymphocytes (CBC) 0.9 K/uL (0.7-4.9); Hematocrit 34.2 % (39.6-49.0); Lymphocytes % 17.3 % (15.3-44.8); MCV 101.5 fL (80-100); MPV 8.3 fL (7.6-11.3); Platelets 193 thou/uL (152-406); RBC Red Blood Cell Count 3.37 M/uL (4.33-5.43)
[2023-12-12 10:02] LABS: Albumin 3.6 g/dL (3.4-5.0); Bilirubin Total 0.8 mg/dL (0.2-1.0); Potassium 5.2 mEq/L (3.5-5.1); Protein, Total 7.5 g/dL (6.4-8.2)
--- NOTE | 2023-12-12 10:46 | RAD REPORT ---
EXAM DESCRIPTION: CT - Abdomen Pelvis Wo Contrast - 12/12/2023 10:02 am CLINICAL HISTORY: ABD PAIN COMPARISON: No comparisons TECHNIQUE: Thin cut axial CT imaging of the abdomen and pelvis was performed without IV contrast. Mu ltiplanar reformats were generated and reviewed. All CT scans are performed using dose optimization technique as appropriate and may include automated exposure control or mA/KV adjustment according to patient size. FINDINGS: No suspicious findings in the lung bases. The liver shows mild contour nodularity without a suspicious focal lesion noncontrast evaluation. Spl een, adrenal glands, and pancreas show no suspicious findings. Cholelithiasis. Symmetric renal contour, without suspicious parenchymal findings within limits of noncontrast techniq ue. No evidence of radiopaque calculi or hydroureteronephrosis. Mild segmental dilation mid to distal small bowel loops with air-fluid levels. No evidence of pneumat osis. No clear transition point. Hxpf-rt-gjyfddsa stool burden throughout the colon. No free air, mark anthony e fluid or inflammatory stranding. No hernia, mass or bulky lymphadenopathy. The urinary bladder is w ithout significant finding. No suspicious bony findings. IMPRESSION: Mild dilation of mid to distal small bowel loops with air-fluid levels, without evidence of a focal transition point. Findings are suggestive of ileus or perhaps low-grade obstruction. Mild contour nodularity of the liver, may relate to cirrhotic change. Cholelithiasis.
[2023-12-12] MEDS ORDERED: NACHLORIDE 0.45% 1,000 ML IV ONE (10:58)
--- NOTE | 2023-12-12 10:59 | ER ---
Nurse's Notes [facility] Name: Nirmala Ruiz Age: 83 yrs Sex: Male : 1940 Arrival Date: 12/12/2023 Time: 09:14 Bed 13 Private MD: Diagnosis: small bowel obstruction Presentation: 12/12 09:28 Chief complaint: Abdominal cramping x 2 days. Denies N/V/D/fever. Coronavirus screen: hb At this time, the client does not indicate any symptoms associated with coronavirus-19. Ebola Screen: No symptoms or risks identified at this time. Initial Sepsis Screen: Does the patient meet any 2 criteria? No. Patient's initial sepsis screen is negative. Does the patient have a suspected source of infection? No. Patient's initial sepsis screen is negative. Risk Assessment: Do you want to hurt yourself or someone else? Patient reports no desire to harm self or others. Onset of symptoms was December 11, 2023. 09:28 Method Of Arrival: Ambulatory hb 09:28 Acuity: ANAY 3 hb Historical: - Allergies: 09:29 adhesive tape; hb 09:29 TETRACYCLINES; hb - PMHx: 09:29 CKD; diabetes mellitus; Hypercholesterolemia; Hypertensive disorder; Hypothyroidism; hb - PSHx: 09:29 Aortic valve replacement; cardiac bypass; pacemaker; hb 09:29 Bowel Obstruction; Hernia Repair; hb - Immunization history:: Adult Immunizations up to date. - Social history:: Smoking status: Patient denies any tobacco usage or history of. Screenin:39 [facility] ED Fall Risk Assessment (Adult) History of falling in the last 3 months, ko1 including since admission No falls in past 3 months (0 pts) Confusion or Disorientation No (0 pts) Intoxicated or Sedated No (0 pts) Impaired Gait No (0 pts) Mobility Assist Device Used No (0 pt) Altered Elimination No (0 pt) Score/Fall Risk Level 0 - 2 = Low Risk Oriented to surroundings, Maintained a safe environment, Educated pt \T\ family on fall prevention, incl call for assistance when getting out of bed, Assessed \T\ reinforced patient's understanding of fall precautions, Provided non-skid footwear, Hourly rounding (assess needs \T\ fall precautionary measures) done, Used ambulatory aids as needed (educated on \T\ assisted with), Used gait belt as appropriate. Abuse screen: Denies threats or abuse. Denies injuries from another. Nutritional screening: No deficits noted. Tuberculosis screening: No symptoms or risk factors identified. Assessment: 09:39 General: Appears in no apparent distress. Behavior is calm, cooperative, appropriate ko1 for age. Pain: Complains of pain in left lower quadrant and right lower quadrant. GI: Bowel sounds present X 4 quads. Abd is soft and non tender. Vital Signs: 09:28 BP 146 / 64; Pulse 60; Resp 16; Temp 97.9(O); Pulse Ox 100% on R/A; Weight 68.04 kg; hb Height 5 ft. 8 in. ; Pain 6/10; 09:39 BP 146 / 54; Pulse 60; Resp 15; Pulse Ox 99% ; ko1 13:10 BP 138 / 60; Pulse 62; Resp 15; Pulse Ox 98% ; ko1 09:28 Body Mass Index 22.81 (68.04 kg, 172.72 cm) hb 09:28 Pain Scale: Adult hb ED Course: 09:17 Patient arrived in ED. mg5 09:18 Neisha Valencia PA-C is PHCP. sb4 09:18 Rodney Perez MD is Attending Physician. sb4 09:23 Muriel Ferrera, LALITHA is Primary Nurse. ko1 09:29 Triage completed. hb 09:31 Arm band placed on. hb 09:35 Inserted saline lock: 20 gauge in left antecubital area, using aseptic technique. Blood ko1 collected. 09:38 CBC with Diff Sent. ko1 09:38 CMP Sent. ko1 09:38 Lipase Sent. ko1 09:39 Patient has correct armband on for positive identification. Placed in gown. Bed in low ko1 position. Call light in reach. Side rails up X 1. Pulse ox on. NIBP on. Door closed. Noise minimized. Lights dimmed. Warm blanket given. 10:04 CT Abd/Pelvis - Without Contrast In Process Unspecified. EDMS 10:58 Jose Denny MD is Hospitalizing Provider. sb4 11:26 Khurram Bowens MD is Hospitalizing Provider. sb4 12:08 Urinalysis w/ reflexes Sent. ko1 13:10 Provided Education on: na. ko1 13:10 No provider procedures requiring assistance completed. Patient admitted, IV remains in ko1 place. Administered Medications: 11:05 Drug: NS IV 0.45 % 1000 ml IV at 75 ml/hr continuous Route: IV; Rate: 75 ml/hr; Site: ko1 left antecubital; Medication: 13:10 VIS not applicable for this client. ko1 Outcome: 10:59 Decision to Hospitalize by Provider. sb4 14:25 Admitted to Tele accompanied by tech, via wheelchair, room 205, with chart, Report ko1 called to LALITHA Ahuja 14:25 Condition: stable 14:25 Instructed on the need for admit, 15:05 Patient left the ED. ko1 Signatures: Dispatcher [employer] EDMS Keely Mcghee RN RN Muirel Brooks RN RN ko1 Neisha Valencia PA-C PAMaren sb4 Dionne Soliman mg5 Corrections: (The following items were deleted from the chart) 09:31 09:29 PSHx: Bowel Obstruction (pacemaker); hb hb 09:31 09:29 PSHx: Hernia Repair (pacemaker); hb hb
--- NOTE | 2023-12-12 10:59 | EDPHYS ---
Physician Documentation [facility] Name: Nirmala Ruiz Age: 83 yrs Sex: Male : 1940 Arrival Date: 12/12/2023 Time: 09:14 Bed 13 Private MD: ED Physician Rodney Perez HPI: 12/12 09:27 This 83 yrs old Male presents to ER via Unassigned with complaints of Abdominal Pain - sb4 Cramping. 09:27 The patient presents with abdominal pain in the lower abdomen. Onset: The sb4 symptoms/episode began/occurred 2 day(s) ago. The symptoms do not radiate. Associated signs and symptoms: Pertinent positives: nausea, Pertinent negatives: constipation, fever, vomiting. The symptoms are described as crampy. Modifying factors: The symptoms are alleviated by nothing, the symptoms are aggravated by pressure. left lower abd cramping x 2 days. no vomiting, no diarrhea. still having small BMs. states abdomen is more distended than usual. reports more severe but similar symptoms several years ago when he had a blockage. Historical: - Allergies: 09: adhesive tape; hb 09:29 TETRACYCLINES; hb - PMHx: 09:29 CKD; diabetes mellitus; Hypercholesterolemia; Hypertensive disorder; Hypothyroidism; hb - PSHx: 09:29 Aortic valve replacement; cardiac bypass; pacemaker; hb 09:29 Bowel Obstruction; Hernia Repair; hb - Immunization history:: Adult Immunizations up to date. - Social history:: Smoking status: Patient denies any tobacco usage or history of. ROS: 09:27 Constitutional: Negative for fever, chills, and weight loss, sb4 09:27 Abdomen/GI: Positive for abdominal pain, nausea, abdominal cramps, 09: All other systems are negative, Exam: 09:27 Constitutional: This is a well developed, well nourished patient who is awake, alert, sb4 and in no acute distress. Head/Face: Normocephalic, atraumatic. Eyes: Extra-ocular motions intact. Periorbital areas with no swelling, redness, or edema. ENT: Mucous membranes moist. Cardiovascular: Regular rate and rhythm with a normal S1 and S2. Respiratory: Lungs have equal breath sounds bilaterally, clear to auscultation and percussion. No rales, rhonchi or wheezes noted. No increased work of breathing, no retractions or nasal flaring. Skin: Warm, dry with normal turgor. Normal color with no rashes, no lesions, and no evidence of cellulitis. MS/ Extremity: Pulses equal, no cyanosis. Neurovascular intact. Full, normal range of motion. Neuro: Awake and alert, GCS 15, oriented to person, place, time, and situation. Motor strength 5/5 in all extremities. Sensory grossly intact. 09:27 Abdomen/GI: Inspection: distension, that is mild, in the right lower quadrant and left lower quadrant, Bowel sounds: normal, in all quadrants, Palpation: soft, moderate abdominal tenderness, in the left lower quadrant, Vital Signs: 09:28 BP 146 / 64; Pulse 60; Resp 16; Temp 97.9(O); Pulse Ox 100% on R/A; Weight 68.04 kg; hb Height 5 ft. 8 in. ; Pain 6/10; 09:39 BP 146 / 54; Pulse 60; Resp 15; Pulse Ox 99% ; ko1 13:10 BP 138 / 60; Pulse 62; Resp 15; Pulse Ox 98% ; ko1 09:28 Body Mass Index 22.81 (68.04 kg, 172.72 cm) hb 09:28 Pain Scale: Adult hb MDM: 09:19 Patient medically screened. sb4 09:27 Differential diagnosis: bowel obstruction, diverticulitis, non-specific abd pain, sb4 Peptic Ulcer Disease, colitis. 10:56 Data reviewed: vital signs, nurses notes, lab test result(s), radiologic studies, and sb4 as a result, I will admit patient. Consideration of Admission/Observation Patient was admitted/placed on observation. Historians other than the Patient: Spouse/Significant Other: . Counseling: I had a detailed discussion with the patient and/or guardian regarding the historical points, exam findings, and any diagnostic results supporting the discharge/admit diagnosis, lab results, radiology results, the need for further work-up and treatment in the hospital. 12/12 09:26 Order name: CBC with Diff; Complete Time: 09:55 sb4 12/12 09:26 Order name: CMP; Complete Time: 10:02 sb4 12/12 09:26 Order name: Lipase; Complete Time: 10:02 sb4 12/12 09:26 Order name: Urinalysis w/ reflexes; Complete Time: 12:18 sb4 12/12 09:26 Order name: CT Abd/Pelvis - Without Contrast; Complete Time: 10:50 sb4 12/12 09:26 Order name: IV Saline Lock; Complete Time: 09:37 sb4 12/12 09:26 Order name: Labs collected and sent; Complete Time: 09:38 sb4 12/12 10:55 Order name: NPO; Complete Time: 10:57 sb4 Administered Medications: 11:05 Drug: NS IV 0.45 % 1000 ml IV at 75 ml/hr continuous Route: IV; Rate: 75 ml/hr; Site: ko left antecubital; Disposition Summary: 12/12/23 10:59 Hospitalization Ordered Notes: Hospitalization Status: Observation sb4 Location: Telemetry/MedSurg (observation) sb4 Condition: Fair sb4 Problem: new sb4 Symptoms: are unchanged sb4 Bed/Room Type: Standard sb4 Provider: Khurram Bowens(12/12/23 11:26) sb4 Room Assignment: [facility] [place] [facility] [place]12/12/23 13:40) eb Diagnosis - small bowel obstruction sb4 Forms: - Medication Reconciliation Form sb4 - SBAR form sb4 - Leadership Thank You Letter sb4 Addendum: 12/14/2023 15:34 I was immediately available for consultation during this patient's visit. I did not e c2 personally see the patient or discuss the patient with the GRIFFIN. . Signatures: Dispatcher [employer] Keely Norman RN RN Elidia Son Kathy, RN RN ko1 Neisha Valencia PA-C PA-C sb4 Rodney Perez MD MD ec2 Corrections: (The following items were deleted from the chart) 12/12 09:30 09:27 Differential diagnosis: bowel obstruction, diverticulitis, non-specific abd pain, sb4 Peptic Ulcer Disease, sb4 : 09:29 PSHx: Bowel Obstruction (pacemaker); hb hb 09: 09:29 PSHx: Hernia Repair (pacemaker); hb hb 11: 10:59 Jose Denny sb4 sb4 13:40 10:59 sb4 eb
--- NOTE | 2023-12-12 11:34 | P.HP ---
Certification for Inpatient Patient admitted to: Inpatient With expected LOS: >2 Midnights Patient will require the following post-hospital care: None Practitioner: I am a practitioner with admitting privileges, knowledge of patient current condition, hospital course, and medical plan of care. Services: Services provided to patient in accordance with Admission requirements found in Title 42 Section 412.3 of the Code of Federal Regulations Patient History Date of Service: 12/12/23 History of Present Illness: 83-year-old male with history of aortic valve repairbovine, CKD, diabetes mellitus type 2, hypertension, hyperlipidemia, hypothyroidism with previous bowel obstruction in the late 80s presents emergency department chief complaint of abdominal pain. He reports abdominal pain going on for the last 2 days, denies vomiting last bowel movement was 12/11/2023, he did have a very small bowel movement this morning as well. He was evaluated in the emergency department his labs are significant for hemoglobin of 11.2 hematocrit 34.2 potassium 5.2 creatinine 3.22 GFR 18, baseline creatinine around 2.8. CT abdomen pelvis without contrast was performed which revealed mild dilation of the mid to distal small bowel loops with air-fluid levels without evidence of a focal transition point. Findings are suggestive of ileus or perhaps low-grade obstruction. Will admit for further evaluation and management of suspected early small bowel obstruction-discussed with general surgery. Allergies adhesive tape Allergy (Verified 10/01/23 12:54) Large Blister tetracycline Allergy (Verified 10/01/23 12:54) Rash Home Medications: Amlodipine Besylate 5 mg PO DAILY 08/26/22 Aspirin [Schley Aspirin] 81 mg PO DAILY 08/26/22 Atorvastatin Calcium [Lipitor] 80 mg PO BEDTIME 08/26/22 Colesevelam HCl [Welchol] 2 tab PO DAILY 08/26/22 Darbepoetin Ciro in Polysorbat [Aranesp] 25 mcg IM SEECOM 08/26/22 Levothyroxine [Synthroid*] 112 mcg PO [id number] 08/26/22 traMADol HCL [Ultram*] 50 mg PO Q6HP PRN 08/26/22 Ascorbate Calcium [Vitamin C] 500 mg PO BID 06/24/23 Cholecalciferol (Vitamin D3) [Vitamin D3] 250 mcg PO BID 06/24/23 Ferrous Sulfate [Ferrous Sulfate*] 2 tab PO BID 06/24/23 Lidocaine/Aloe Vera [Aloe Vera Gel] 1 cap PO DAILY 06/24/23 Lutein/Zeaxanthin/Bilberry Ext [Frcihr-Vgtvdt-Kzidlh 20Mg Sfgl] 2 cap PO DAILY 06/24/23 Pyridoxine [Vitamin B-6*] 100 mg PO DAILY 06/24/23 Vit C/E/Zn/Coppr/Lutein/Zeaxan [Preservision Areds 2 Chew Tab] 2 tab PO DAILY 06/24/23 Vitamin A 3,000 mcg PO DAILY 06/24/23 Vitamin E [Vitamin E*] 1 tab PO DAILY 06/24/23 Zinc Acetate [Wilzin] 2 tab PO DAILY 06/24/23 Torsemide [Demadex*] 40 mg PO DAILY #60 tab 08/09/23 - Past Medical/Surgical History Diabetic: Yes -: DM 2 -: HTN -: Hypothyroidism -: CHFsystolic -: Macular Degeneration -: A-fib status post watchman -: CKD 4 -: 1990- cataract removal and Lens implant -: Hemorrhoidectomy -: L knee repair -: Heart Cath x13 -: 2018 Pacemaker placement -: heart sents x10 -: R side hernia -: 2020 Watchman, aortic valve repairbovine - Family History Father -: Heart disease, Diabetes Mother -: Heart disease - Social History Alcohol use: No CD- Drugs: No Caffeine use: Yes Place of Residence: Home Review of Systems 10-point ROS is otherwise unremarkable Gastrointestinal: Abdominal Pain Physical Examination - Physical Exam General: Alert, In no apparent distress, Oriented x3 HEENT: Atraumatic, PERRLA Neck: Supple, 2+ carotid pulse no bruit Respiratory: Clear to auscultation bilaterally, Normal air movement Cardiovascular: Regular rate/rhythm, Normal S1 S2 Gastrointestinal: Normal bowel sounds, Tenderness (Mild periumbilical tenderness) Musculoskeletal: No tenderness Integumentary: No rashes Neurological: Normal speech, Normal strength at 5/5 x4 extr, Normal tone - Studies Laboratory Data (last 24 hrs) 12/12/23 12/12/23 09:30 09:30 WBC 5.10 Hgb 11.2 L Hct 34.2 L Plt Count 193 Sodium 137 Potassium 5.2 H BUN 102 H Creatinine 3.22 H Glucose 85 Total Bilirubin 0.8 AST 38 H ALT 42 Alkaline Phosphatase 194 H Lipase 48 Assessment and Plan - Plan Assessment: Early small bowel obstruction versus ileus NARA on CKD 4 Diabetes mellitus type [id number] Chronic systolic and is of heart failure Atrial fibrillation status post Watchman procedure Hypertension Hypothyroidism Hyperlipidemia History of aortic valve repairbovine Plan: Early small bowel obstruction versus ileus N.p.o., gentle IVF Empiric antibiotics, general surgery consult KUB in the morning Encourage ambulation Consider NG tube insertion if worsening pain, distention, vomiting NARA on CKD 4 Baseline creatinine around 2.8 Continue gentle IV fluids, nephrology consult Diabetes mellitus type [id number] Every 6 hours Accu-Chek, sign scale insulin Chronic systolic and is of heart failure Appears euvolemic at this time, continue gentle IV fluids while n.p.o. Atrial fibrillation status post Watchman procedure Takes aspirin daily at home Hypertension Hypothyroidism Hyperlipidemia History of aortic valve repairbovine Hold oral medications while n.p.o. Restart when tolerating p.o. DVT PPX: Heparin subcu Code status: Full Discharge Plan: Home Plan to discharge in: 72 Hours - Advance Directives Does patient have a Living Will: No Does patient have a Durable POA for Healthcare: No - Code Status/Comfort Care Code Status Assessed: Yes (Full code) Critical Care: No Time Spent Managing Pts Care (In Minutes): 70
[2023-12-12 12:17] LABS: Urine Bacteria None Seen /HPF (<20); Urine Bilirubin NEGATIVE (Negative); Urine Blood Negative (Negative); Urine Clarity Clear (Clear); Urine Color Light-Yellow (Yellow); Urine Glucose NEGATIVE (Negative); Urine Mucus Slight /HPF (None Seen); Urine Protein TRACE (Negative); Urine RBC None Seen /HPF (None Seen); Urine Urobilinogen Normal (Normal); Urine pH 5.5 (5.0-7.0)
[2023-12-12] MEDS: INSULIN REGULAR (HUMAN) 100 UNIT/ML SQ SCH ×3 (15:12→21:00)
[2023-12-12] MEDS ORDERED: NA CHLORIDE 0.9% 1,000 ML IV SCH (15:12)
[2023-12-12] MEDS ORDERED: MORPHINE 2 MG/ML SYR IV PRN (15:12)
[2023-12-12] MEDS ORDERED: ONDANSETRON 4 MG/2 ML VIAL IV PRN (15:12)
[2023-12-12 15:49] VITALS: BMI 22.8
[2023-12-12] MEDS: METRONIDAZOLE 500mg IVPB 500 MG/100 ML BAG IV SCH (16:34)
[2023-12-12 17:32] VITALS: O2SAT 98
[2023-12-12] MEDS: HEPARIN 5000 UNIT/ML 1 ML VIAL SQ SCH (20:08)
--- NOTE | 2023-12-12 20:44 | P.CNS ---
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 CT A/P showed mild dilation of the mid to d istal small bowel loops with air-fluid levels without evidence of a focal transition point, suggestive of ileus vs low-grade obstruction. He is referred to Nephrology for NARA. SCr 3.2 (GFR 18) on adm. He is receiving IVF. Serum K mildly elevated at 5.2. Allergies adhesive tape Allergy (Verified 10/01/23 12:54) Large Blister tetracycline Allergy (Verified 10/01/23 12:54) Rash Home Medications: Amlodipine Besylate 5 mg PO DAILY 08/26/22 Aspirin [Dolores Aspirin] 81 mg PO DAILY 08/26/22 Atorvastatin Calcium [Lipitor] 80 mg PO BEDTIME 08/26/22 Colesevelam HCl [Welchol] 2 tab PO DAILY 08/26/22 Darbepoetin Ciro in Polysorbat [Aranesp] 25 mcg IM SEECOM 08/26/22 Levothyroxine [Synthroid*] 112 mcg PO [id number] 08/26/22 traMADol HCL [Ultram*] 50 mg PO Q6HP PRN 08/26/22 Ascorbate Calcium [Vitamin C] 500 mg PO BID 06/24/23 Cholecalciferol (Vitamin D3) [Vitamin D3] 250 mcg PO BID 06/24/23 Ferrous Sulfate [Ferrous Sulfate*] 2 tab PO BID 06/24/23 Lidocaine/Aloe Vera [Aloe Vera Gel] 1 cap PO DAILY 06/24/23 Lutein/Zeaxanthin/Bilberry Ext [Wnfyse-Wtsbpx-Slhutz 20Mg Sfgl] 2 cap PO DAILY 06/24/23 Pyridoxine [Vitamin B-6*] 100 mg PO DAILY 06/24/23 Vit C/E/Zn/Coppr/Lutein/Zeaxan [Preservision Areds 2 Chew Tab] 2 tab PO DAILY 06/24/23 Vitamin A 3,000 mcg PO DAILY 06/24/23 Vitamin E [Vitamin E*] 1 tab PO DAILY 06/24/23 Zinc Acetate [Wilzin] 2 tab PO DAILY 06/24/23 Torsemide [Demadex*] 40 mg PO DAILY #60 tab 08/09/23 - Past Medical/Surgical History Diabetic: Yes -: DM 2 -: HTN -: Hypothyroidism -: CHFsystolic -: Macular Degeneration -: A-fib status post watchman -: CKD 4 -: 1990- cataract removal and Lens implant -: Hemorrhoidectomy -: L knee repair -: Heart Cath x13 -: 2018 Pacemaker placement -: heart sents x10 -: R side hernia -: 2020 Watchman, aortic valve repairbovine - Family History Father Medical History: Heart disease, Diabetes Mother Medical History: Heart disease - Social History Alcohol use: No CD- Drugs: No Caffeine use: Yes Place of Residence: Home Review of Systems General: Weakness Eyes: Unremarkable ENT: Unremarkable Respiratory: Unremarkable Cardiovascular: Unremarkable Gastrointestinal: Abdominal Pain Genitourinary: Unremarkable Musculoskeletal: Unremarkable Integumentary: Unremarkable Neurological: Unremarkable Lymphatics: Unremarkable Physical Examination Temp Pulse Resp BP Pulse Ox 97.9 F 60 14 156/70 H 99 12/12/23 16:00 12/12/23 16:00 12/12/23 16:00 12/12/23 16:00 12/12/23 16:00 General: Other (appears as his stated age) HEENT: Atraumatic, Normocephalic Respiratory: Other (symmetric chest expansion) Cardiovascular: No rubs, No murmurs Gastrointestinal: Soft and benign Musculoskeletal: No clubbing Integumentary: No warmth Neurological: Normal speech, Normal tone Lymphatics: No axilla or inguinal lymphadenopathy Urinary: Other (no bladder distention) External genitalia: Deferred Rectal: Deferred Laboratory Data (last 24 hrs) 12/12/23 12/12/23 09:30 09:30 WBC 5.10 Hgb 11.2 L Hct 34.2 L Plt Count 193 Sodium 137 Potassium 5.2 H BUN 102 H Creatinine 3.22 H Glucose 85 Total Bilirubin 0.8 AST 38 H ALT 42 Alkaline Phosphatase 194 H Lipase 48 Conclusions/Impression: # NARA 2/2 prerenal state Cont IVF PO fluid intake as able # CKD3a Baseline GFR around 50 ml/min Monitor renal panel # Abdominal pain, ileus vs SBO On IVF Per other services # Chronic systolic HF, afib s/p Watchman Hold lasix Cont other cardioprudent meds # Htn Continue current medication regimen # DM2 Mngt per primary team
[2023-12-12] MEDS: D5 0.9 NS 1,000 ML IV SCH (20:54)
[2023-12-13] MEDS: METRONIDAZOLE 500mg IVPB 500 MG/100 ML BAG IV SCH ×3 (01:03→16:58)
[2023-12-13 04:07] LABS: Absolute Lymphocytes (CBC) 0.5 K/uL (0.7-4.9); Hematocrit 32.1 % (39.6-49.0); Lymphocytes % 16.5 % (15.3-44.8); MCV 101.6 fL (80-100); Platelets 187 thou/uL (152-406); RBC Red Blood Cell Count 3.16 M/uL (4.33-5.43)
[2023-12-13 04:28] LABS: Albumin 3.1 g/dL (3.4-5.0); Bilirubin Total 0.8 mg/dL (0.2-1.0); Potassium 4.6 mEq/L (3.5-5.1); Protein, Total 6.7 g/dL (6.4-8.2)
[2023-12-13] MEDS: INSULIN REGULAR (HUMAN) 100 UNIT/ML SQ SCH ×3 (07:28→15:52)
--- NOTE | 2023-12-13 07:35 | RAD REPORT ---
EXAM DESCRIPTION: RAD - Abdomen 1 View (KUB) - 12/13/2023 6:45 am CLINICAL HISTORY: sbo COMPARISON: Abdomen Pelvis Wo Contrast dated 12/12/2023 FINDINGS: Nonobstructive bowel gas pattern. No acute osseous abnormality.Visualized lungs are unrema rkable.No abnormal calcifications. Gas and stool present within the colon. IMPRESSION: Nonobstructive bowel gas pattern.
[2023-12-13] MEDS: HEPARIN 5000 UNIT/ML 1 ML VIAL SQ SCH (07:47)
[2023-12-13] MEDS: D5 0.9 NS 1,000 ML IV SCH (07:48)
[2023-12-13] MEDS ORDERED: CEFTRIAXONE 1,000 MG in NA CHLORIDE 0.9% 50 ML IVPB SCH (09:00)
[2023-12-13] MEDS ORDERED: TRAMADOL HCL 50 MG TAB PO PRN (10:58)
--- NOTE | 2023-12-13 10:58 | P.PN ---
Date of Service: 12/13/23 Subjective: Improving, multiple BMs overnight ROS: 10 point ROS as noted above, otherwise negative Physical exam GEN: Alert, oriented, NAD HEENT: Normal conjunctiva, sclera anicteric CV: Regular rate and rhythm, no edema Pulm: Nonlabored respirations on room air ABD: Soft, nontender, nondistended MSK: No joint tenderness Integumentary: No rashes Neuro: Normal speech, normal affect Vitals reviewed Assessment: Early small bowel obstruction versus ileus NARA on CKD 4 Diabetes mellitus type [id number] Chronic systolic and is of heart failure Atrial fibrillation status post Watchman procedure Hypertension Hypothyroidism Hyperlipidemia History of aortic valve repairbovine Plan: Early small bowel obstruction versus ileus Had multiple BMs overnight Abdomen soft, nondistended Advance to clear liquids NARA on CKD 4 IV fluid around baseline Continue gentle IV fluids Diabetes mellitus type [id number] Every 6 hours Accu-Chek, sign scale insulin Chronic systolic congestive heart failure Appears euvolemic at this time, continue gentle IV fluids while n.p.o. Atrial fibrillation status post Watchman procedure Takes aspirin daily at home Hypertension Hypothyroidism Hyperlipidemia History of aortic valve repairbovine Hold oral medications while n.p.o. Restart when tolerating p.o. DVT PPX: Heparin subcu Code status: Full Discharge Plan: Home Plan to discharge in: 24 hours Time Spent Managing Pts Care (In Minutes): 35
--- NOTE | 2023-12-13 11:00 | CON ---
Reason For Consultation: Possible small bowel obstruction. History Of Present Illness: The patient is an 83-year-old gentleman who presents to the emergency ro om with abdominal pain for the 2 days prior to admission. Last bowel movement was Thursday before comi ng to the hospital, and after he came to the hospital yesterday evening, he had a large bowel movemen t. He has had subsequently smaller bowel movements. He denies any nausea or vomiting at this time, but the pain was pretty severe and that is why he came to the emergency room. No sore throat, runny nose, cough, headaches, dizziness. No chest pain. No fever or chills. Review of Systems: Otherwise unremarkable. Past Medical History: Significant for atrial fibrillation, CHF, hypothyroidism, chronic kidney disea se, diabetes, hypertension. Past Surgical History: Significant for aortic valve replacement, left knee surgery, cardiac cath mul tiple times with stent placement, hernia surgery, pacemaker placement, Watchman procedure, cataract s urgery, hemorrhoid surgery. Allergies: INCLUDE TETRACYCLINE. Social History: The patient does not smoke or drink alcohol at this time. Family History: Significant for heart disease and diabetes. Physical Examination: Vital Signs: Stable, he is afebrile. General: He is awake, alert, oriented x3. Head and Neck: Cranial nerves 2 through 12 grossly within normal limits. No neck masses. No JVD. Throat clear. Neck supple. Chest: Clear. Heart: S1 and S2. Abdomen: Soft, nondistended, nontender. Positive bowel sounds. Extremities: Neurovascularly intact. Neuro: Nonfocal. Data: CT of the abdomen and pelvis reviewed, it showed small bowel obstruction versus ileus yesterda y and the abdominal x-ray today shows no evidence of obstruction, nonspecific gas pattern. Of note i s that there is mild nodularity to the liver on the CAT scan as well as asymptomatic cholelithiasis. Assessment: Small bowel obstruction versus ileus, resolved. Recommendation: Begin diet as tolerated. The patient can be discharged home from surgical point of view. Should the patient have biliary colic in the future, the cholelithiasis can be managed as an o utpatient. There is no need for any surgical intervention at this time. /MODL Voice ID: [id number] Report ID: [id number]
[2023-12-13 16:40] VITALS: BP 155/70; TEMP 97.5
--- NOTE | 2023-12-13 16:40 | P.PN ---
Subjective Date of Service: 12/13/23 Chief Complaint: Abd pain Subjective: Other (No urinary complaints. He reports abdominal pain is much less.) Physical Examination - Vital Signs Temperature: 97.5 F Blood Pressure: 155/70 Pulse: 60 Respirations: 14 Pulse Ox (%): 99 - Physical Exam General: In no apparent distress HEENT: Atraumatic, Normocephalic Neck: Supple, JVD not distended Respiratory: Other (Symmetric chest expansion) Cardiovascular: No rubs, No murmurs Gastrointestinal: Soft and benign, No guarding Musculoskeletal: No clubbing Integumentary: No warmth Neurological: Normal tone Urinary: Other (No bladder distention) External genitalia: Deferred Rectal: Deferred Assessment And Plan - Plan # NARA 2/2 prerenal state SCr improved to 2.5 Dc IVF [place] po fluid intake at least 1.5-2L/day PO fluid intake as able # CKD3a Baseline GFR around 50 ml/min Monitor renal panel # Abdominal pain, ileus vs SBO Improved Per other services # Chronic systolic HF, afib s/p Watchman Hold lasix Cont other cardioprudent meds # Htn Continue current medication regimen # DM2 Mngt per primary team
--- NOTE | 2023-12-13 19:27 | P.DS ---
Admission Date: 12/12/23 Discharge Date: 12/13/23 Disposition: ROUTINE DISCHARGE Discharge Condition: GOOD Reason for Admission: Abd pain Consultations: general surgery- Dr. Guthrie Nephrology- Dr. Guillermo Brief History of Present Illness: 83-year-old male with history of aortic valve repairbovine, CKD, diabetes mellitus type 2, hypertension, hyperlipidemia, hypothyroidism with previous bowel obstruction in the late 80s presents emergency department chief complaint of abdominal pain. He reports abdominal pain going on for the last 2 days, denies vomiting last bowel movement was 12/11/2023, he did have a very small bowel movement this morning as well. He was evaluated in the emergency department his labs are significant for hemoglobin of 11.2 hematocrit 34.2 potassium 5.2 creatinine 3.22 GFR 18, bas lisa creatinine around 2.8. CT abdomen pelvis without contrast was performed which revealed mild dilation of the mid to distal small bowel loops with air- fluid levels without evidence of a focal transition point. Findings are suggestive of ileus or perhaps low-grade obstruction. Will admit for further evaluation and management of suspected early small bowel obstruction-discussed with general surgery. Hospital Course: Assessment: Early small bowel obstruction versus ileus NARA on CKD 4 Diabetes mellitus type [id number] Chronic systolic and is of heart failure Atrial fibrillation status post Watchman procedure Hypertension Hypothyroidism Hyperlipidemia History of aortic valve repairbovine Patient was admitted to the hospital for ileus versus early small bowel obstruction. He was kept n.p.o. overnight and had multiple bowel movements and relief of his symptoms. Follow-up KUB was performed in the morning which showed nonobstructive bowel gas pattern. He tolerated clear liquid diet for breakfast/lunch and regular diet for dinner. He had resolution of his symptoms is currently back at his baseline. He was evaluated by general surgery during his hospitalization as well is nephrology. He is close to his baseline creatinine. Stable for discharge with close follow-up with his primary care doctor, general surgery, nephrology. Continue home medication as prescribed Please follow-up your primary care doctor in 1 to 2 weeks Please follow-up with nephrology in 1 to 2 weeks Vital Signs/Physical Exam: Temp Pulse Resp BP Pulse Ox 97.5 F 60 14 155/70 H 99 12/13/23 16:40 12/13/23 16:40 12/13/23 16:40 12/13/23 16:40 12/13/23 16:40 General: Alert, In no apparent distress, Oriented x3 HEENT: Atraumatic, PERRLA Neck: Supple, JVD not distended Respiratory: Clear to auscultation bilaterally, Normal air movement Cardiovascular: Regular rate/rhythm, Normal S1 S2 Gastrointestinal: Normal bowel sounds, No tenderness Musculoskeletal: No tenderness Integumentary: No rashes Neurological: Normal speech, Normal tone, Normal affect Laboratory Data at Discharge: WBC 3.20 thou/uL (4.3-10.9) L 12/13/23 03:02 Hgb 10.7 g/dL (13.6-17.9) L 12/13/23 03:02 Hct 32.1 % (39.6-49.0) L 12/13/23 03:02 Plt Count 187 thou/uL (152-406) 12/13/23 03:02 Sodium 140 mEq/L (136-145) 12/13/23 03:02 Potassium 4.6 mEq/L (3.5-5.1) 12/13/23 03:02 BUN 86 mg/dL (7-18) H 12/13/23 03:02 Creatinine 2.47 mg/dL (0.70-1.30) H 12/13/23 03:02 Glucose 92 mg/dL (74-106) 12/13/23 03:02 Total Bilirubin 0.8 mg/dL (0.2-1.0) 12/13/23 03:02 AST 35 U/L (15-37) 12/13/23 03:02 ALT 33 U/L (16-61) 12/13/23 03:02 Alkaline Phosphatase 164 U/L (45-117) H 12/13/23 03:02 Lipase 48 U/L (13-75) 12/12/23 09:30 Home Medications: Amlodipine Besylate 5 mg PO DAILY 08/26/22 Aspirin [[place] Aspirin] 81 mg PO DAILY 08/26/22 Atorvastatin Calcium [Lipitor] 80 mg PO BEDTIME 08/26/22 Colesevelam HCl [Welchol] 2 tab PO DAILY 08/26/22 Darbepoetin Ciro in Polysorbat [Aranesp] 25 mcg IM SEECOM 08/26/22 Levothyroxine [Synthroid*] 112 mcg PO CFFOH2AH 08/26/22 traMADol HCL [Ultram*] 50 mg PO Q6HP PRN 08/26/22 Ascorbate Calcium [Vitamin C] 500 mg PO BID 06/24/23 Cholecalciferol (Vitamin D3) [Vitamin D3] 250 mcg PO BID 06/24/23 Ferrous Sulfate [Ferrous Sulfate*] 2 tab PO BID 06/24/23 Lidocaine/Aloe Vera [Aloe Vera Gel] 1 cap PO DAILY 06/24/23 Lutein/Zeaxanthin/Bilberry Ext [Tsdsrh-Wuuwzr-Wlcaum 20Mg Sfgl] 2 cap PO DAILY 06/24/23 Pyridoxine [Vitamin B-6*] 100 mg PO DAILY 06/24/23 Vit C/E/Zn/Coppr/Lutein/Zeaxan [Preservision Areds 2 Chew Tab] 2 tab PO DAILY 06/24/23 Vitamin A 3,000 mcg PO DAILY 06/24/23 Vitamin E [Vitamin E*] 1 tab PO DAILY 06/24/23 Zinc Acetate [Wilzin] 2 tab PO DAILY 06/24/23 Torsemide [Demadex*] 40 mg PO DAILY #60 tab 08/09/23 Physician Discharge Instructions: Patient was admitted to the hospital for ileus versus early small bowel obstruction. He was kept n.p.o. overnight and had multiple bowel movements and relief of his symptoms. Follow-up KUB was performed in the morning which showed nonobstructive bowel gas pattern. He tolerated clear liquid diet for breakfast/lunch and regular diet for dinner. He had resolution of his symptoms is currently back at his baseline. He was evaluated by general surgery during his hospitalization as well is nephrology. He is close to his baseline creatinine. Stable for discharge with close follow-up with his primary care doctor, general surgery, nephrology. Continue home medication as prescribed Please follow-up your primary care doctor in 1 to 2 weeks Please follow-up with nephrology in 1 to 2 weeks Diet: Regular Activity: Ad bety Followup: Deacon Cruz MD [ACTIVE - CAN ADMIT] - 1-2 Weeks OOT,AdinOT [Primary Care Provider] - 1-2 Weeks Time spent managing pt's care (in minutes): 35
[2023-12-13] MEDS ORDERED: FERROUS SULFATE 325 MG TAB PO SCH (21:00)
[2023-12-13] MEDS ORDERED: ATORVASTATIN 80 MG TAB PO SCH (21:00)
[2023-12-14] MEDS ORDERED: LEVOTHYROXINE SOD 0.112 MG TAB PO SCH (06:00)
[2023-12-14] MEDS ORDERED: ASPIRIN 81 MG CHEWABLE TABLET PO SCH (09:00)
[2023-12-14] MEDS ORDERED: AMLODIPINE 5 MG TAB PO SCH (09:00)
== END 2023-12-13 18:51 | disposition home or self-care (01) | DRG 389 ==
LOC: ER 09:14 → ERHOLD 11:40 → 2ND 13:45
PROVIDERS: ADMIT Hospitalist; ATTEND Hospitalist
DX: K56.699 Other intestinal obstruction unspecified as to partial versus complete obstruction (principal); I13.0 Hypertensive heart and chronic kidney disease with heart failure and stage 1 through stage 4 chronic kidney disease, or unspecified chronic kidney disease; I50.22 Chronic systolic (congestive) heart failure; N18.4 Chronic kidney disease, stage 4 (severe); N17.9 Acute kidney failure, unspecified; E11.22 Type 2 diabetes mellitus with diabetic chronic kidney disease; E03.9 Hypothyroidism, unspecified; I48.91 Unspecified atrial fibrillation; E78.00 Pure hypercholesterolemia, unspecified; Z95.0 Presence of cardiac pacemaker; Z88.1 Allergy status to other antibiotic agents; Z96.1 Presence of intraocular lens; Z95.5 Presence of coronary angioplasty implant and graft; Z95.2 Presence of prosthetic heart valve; Z79.82 Long term (current) use of aspirin; Z91.048 Other nonmedicinal substance allergy status; Z79.890 Hormone replacement therapy; Z79.899 Other long term (current) drug therapy
CPT/HCPCS: 36415; 74018; 74176; 80053; 81001; 82947; 83690; 85025; 99285; J0696; J1644; J7030; J7042